=== PATIENT | male | born 1985 ===

== ENCOUNTER 2021-02-11 14:30 | Inpatient (IN) | payer MEDICAID, OTHER, SELFPAY ==
[2021-02-11] MEDS ORDERED: Albuterol Sulfate 2.5 mg/3 ml Neb NEB PRN (14:54)
[2021-02-11] MEDS ORDERED: Albuterol 200 PUFF (6.7GM INHALER) INH PRN (15:22)
[2021-02-11 15:35] LABS: #Eosinphils 0.1 thou/uL (0.0-0.7); #Lymphocytes 0.5 thou/uL (1.20-3.40); #Monocytes 0.2 thou/uL (0.11-0.59); #Neutrophils 12.2 thou/uL (1.40-6.50); %Basophils 0.4 % (0.0-1.0); %Eosinophils 0.4 % (0.0-10.0); %Lymphocytes 3.6 % (21.0-51.0); %Monocytes 1.8 % (0.0-10.0); %Neutrophils 93.8 % (42.0-75.0); Hemoglobin 13.6 g/dL (14.0-18.0); Mean Corpuscular HGB CONC 33.1 g/dL (32.0-36.0); Mean Corpuscular Hemoglobin 31.1 pg (27.0-31.0); Mean Corpuscular Volume 93.8 fL (78.0-98.0); Mean Platelet Volume 6.2 fL (7.4-10.4); Platelet Count 413 thou/uL (130-400); RBC Distribution Width 11.4 % (11.5-14.5); Red Blood Cell (RBC) Count 4.37 mill/uL (4.70-6.10)
[2021-02-11 15:49] LABS: ALT (SGPT) 29 U/L (8-55); AST (SGOT) 16 U/L (5-34); Alkaline Phosphatase 48 U/L (40-110); Anion Gap 13 mmol/L (10-20); BUN (Urea Nitrogen) 23 mg/dL (8.9-20.6); Bilirubin, Total 0.5 mg/dL (0.2-1.2); Calc. Creatinine Clearance 136 mL/min (70-130); Carbon Dioxide 23 mmol/L (22-29); Chloride 104 mmol/L (98-107); Globulin 3.7 g/dL (2.4-3.5); Glucose 208 mg/dL (70-105); Potassium 4.5 mmol/L (3.5-5.1); Protein, Total 6.7 g/dL (6.0-8.3); Sodium 135 mmol/L (136-145)
[2021-02-11] MEDS: Lorazepam 2 MG/ML VIAL SLOW IVP PRN (17:44)
[2021-02-11] MEDS: Famotidine 20 MG TAB PO SCH (19:19)
[2021-02-11] MEDS: Dexamethasone 4 mg/ml Vial SLOW IVP SCH (19:24)
[2021-02-11] MEDS: Enoxaparin Sodium 40 MG/0.4 ML SYRINGE SC SCH (19:24)
[2021-02-12 04:08] LABS: Band 1 % (5-11); Hemoglobin 14.1 g/dL (14.0-18.0); Lymphocytes 10 % (21-51); MDiff Complete? YES; Mean Corpuscular Hemoglobin 32.7 pg (27.0-31.0); Mean Corpuscular Volume 93.3 fL (78.0-98.0); Mean Platelet Volume 6.1 fL (7.4-10.4); Monocytes 16 % (0-10); Neutrophil 73 % (42-75); Platelet Count 376 thou/uL (130-400); Platelet Morphology Comment Appears Adequate; RBC Distribution Width 11.5 % (11.5-14.5); RBC Morphology Normal; White Blood Cell (WBC) Count 15.8 thou/uL (4.8-10.8)
[2021-02-12 04:12] LABS: Anion Gap 11 mmol/L (10-20); BUN (Urea Nitrogen) 21 mg/dL (8.9-20.6); CRP (Inflammatory) 5.37 mg/dL (= or < 0.5); Calc. Creatinine Clearance 142 mL/min (70-130); Calcium 9.1 mg/dL (7.8-10.44); Carbon Dioxide 25 mmol/L (22-29); Chloride 102 mmol/L (98-107); Glucose 133 mg/dL (70-105); Potassium 4.2 mmol/L (3.5-5.1); Sodium 134 mmol/L (136-145)
[2021-02-12] MEDS: Lorazepam 2 MG/ML VIAL SLOW IVP PRN ×2 (05:42→08:47)
[2021-02-12] MEDS ORDERED: Vecuronium 10 MG VIAL ONE (08:12)
[2021-02-12] MEDS ORDERED: Propofol BOLUS 1,000 MG/100 ML VIAL IV PRN (08:30)
[2021-02-12] MEDS ORDERED: Morphine 2 MG/ML VIAL SLOW IVP PRN (08:30)
[2021-02-12] MEDS ORDERED: Fentanyl BOLUS 250 ML IVPB PRN (08:30)
[2021-02-12] MEDS ORDERED: Fentanyl CADD 100 ML ONE ×2 (08:36→22:38)
[2021-02-12] MEDS: Fentanyl CADD 100 ML IV SCH ×2 (08:40→22:41)
[2021-02-12] MEDS: Propofol 1,000 MG/100 ML VIAL IV PRN ×3 (08:46→22:19)
[2021-02-12] MEDS: Dexamethasone 4 mg/ml Vial SLOW IVP SCH ×2 (09:25→22:18)
[2021-02-12] MEDS: Famotidine 20 MG TAB PO SCH ×2 (09:26→22:19)
[2021-02-12] MEDS: Enoxaparin Sodium 40 MG/0.4 ML SYRINGE SC SCH ×2 (09:26→22:19)
[2021-02-12] MEDS: Aspirin Chewable 81 MG TAB PO SCH (09:42)
[2021-02-12] MEDS: Vecuronium 10 MG VIAL IV PRN (10:42)
[2021-02-12 11:42] LABS: pH, Arterial 7.27 (7.35-7.45)
[2021-02-12 11:43] LABS: Base Excess (BEa) -1.1 mEq/L (-2.0 to +3.0); CO2 Tension 60.1 mmHg (35.0-45.0); O2 Tension (PaO2), arterial 73.3 mmHg (80.0-100.0)
[2021-02-12 11:44] LABS: Calcium, Ionized (arterial) 1.15 mmol/L (1.12-1.30); Carboxyhemoglobin (COHb) 0.8 gm% (0.0-3.0); Hemoglobin (Hb) 14.2 g/dL (14.0-18.0); Potassium - ABG Lab 3.59 mmol/L (3.70-5.30); Puncture Site RRA
[2021-02-12 11:45] LABS: ALV-art Gradient 564.575 mmHg (0-20)
[2021-02-12] MEDS: Senokot 8.6 MG TAB PER TUBE SCH (22:22)
[2021-02-13] MEDS: Propofol 1,000 MG/100 ML VIAL IV PRN ×3 (01:00→20:19)
[2021-02-13 05:11] LABS: Band 11 % (5-11); Eosinophils 1 % (0-10); Hemoglobin 13.2 g/dL (14.0-18.0); Lymphocytes 5 % (21-51); MDiff Complete? YES; Mean Corpuscular HGB CONC 32.5 g/dL (32.0-36.0); Mean Corpuscular Hemoglobin 30.7 pg (27.0-31.0); Mean Corpuscular Volume 94.5 fL (78.0-98.0); Mean Platelet Volume 6.2 fL (7.4-10.4); Monocytes 6 % (0-10); Neutrophil 77 % (42-75); Platelet Count 342 thou/uL (130-400); Platelet Morphology Comment Appears Adequate; RBC Distribution Width 11.5 % (11.5-14.5); White Blood Cell (WBC) Count 16.6 thou/uL (4.8-10.8)
[2021-02-13 05:28] LABS: Anion Gap 11 mmol/L (10-20); BUN (Urea Nitrogen) 25 mg/dL (8.9-20.6); Calc. Creatinine Clearance 156 mL/min (70-130); Calcium 9.2 mg/dL (7.8-10.44); Carbon Dioxide 30 mmol/L (22-29); Chloride 101 mmol/L (98-107); Glucose 141 mg/dL (70-105); Potassium 4.3 mmol/L (3.5-5.1); Sodium 138 mmol/L (136-145)
[2021-02-13] MEDS: Dexamethasone 4 mg/ml Vial SLOW IVP SCH ×2 (09:05→20:19)
[2021-02-13] MEDS: Aspirin Chewable 81 MG TAB PO SCH (09:05)
[2021-02-13] MEDS: Senokot 8.6 MG TAB PER TUBE SCH ×2 (09:05→20:40)
[2021-02-13] MEDS: Enoxaparin Sodium 40 MG/0.4 ML SYRINGE SC SCH ×2 (09:05→20:19)
[2021-02-13] MEDS: Polyethylene Glycol 3350 17 GM Packet PO SCH (09:06)
[2021-02-13] MEDS: Famotidine 20 MG TAB PO SCH ×2 (09:06→20:19)
[2021-02-13] MEDS: Vecuronium 10 MG VIAL IV PRN (11:45)
[2021-02-13] MEDS ORDERED: Fentanyl CADD 100 ML ONE (13:03)
[2021-02-13] MEDS: Fentanyl CADD 100 ML IV SCH (13:15)
[2021-02-13] MEDS ORDERED: Sodium Chloride 0.9% (PF) 10 ML VIAL FS PRN (19:15)
[2021-02-13] MEDS: Lorazepam 2 MG/ML VIAL SLOW IVP PRN (21:21)
[2021-02-14] MEDS: Acetaminophen 325 MG TAB PO PRN (04:40)
[2021-02-14] MEDS: Propofol 1,000 MG/100 ML VIAL IV PRN ×2 (05:30→19:23)
[2021-02-14 06:27] LABS: Band 3 % (5-11); Eosinophils 1 % (0-10); Hemoglobin 12.8 g/dL (14.0-18.0); Lymphocytes 8 % (21-51); MDiff Complete? YES; Mean Corpuscular HGB CONC 33.5 g/dL (32.0-36.0); Mean Corpuscular Hemoglobin 31.6 pg (27.0-31.0); Mean Corpuscular Volume 94.4 fL (78.0-98.0); Mean Platelet Volume 6.3 fL (7.4-10.4); Monocytes 5 % (0-10); Neutrophil 82 % (42-75); Platelet Count 319 thou/uL (130-400); Platelet Morphology Comment Appears Adequate; RBC Distribution Width 11.4 % (11.5-14.5); Reactive Lymphocytes 1 % (0-10); Red Blood Cell (RBC) Count 4.05 mill/uL (4.70-6.10); White Blood Cell (WBC) Count 16.3 thou/uL (4.8-10.8)
[2021-02-14 06:37] LABS: Anion Gap 10 mmol/L (10-20); BUN (Urea Nitrogen) 26 mg/dL (8.9-20.6); Calc. Creatinine Clearance 149 mL/min (70-130); Carbon Dioxide 30 mmol/L (22-29); Chloride 99 mmol/L (98-107); Glucose 120 mg/dL (70-105); Potassium 4.2 mmol/L (3.5-5.1); Sodium 135 mmol/L (136-145)
[2021-02-14 07:27] LABS: Actual Bicarbonate (HCO3a) 30.9 mEq/L (22-28); Base Excess (BEa) 5.9 mEq/L (-2.0 to +3.0); CO2 Tension 46.3 mmHg (35.0-45.0); Calcium, Ionized (arterial) 1.22 mmol/L (1.12-1.30); Carboxyhemoglobin (COHb) 0.8 gm% (0.0-3.0); Hemoglobin (Hb) 13.5 g/dL (14.0-18.0); O2 Tension (PaO2), arterial 63.9 mmHg (80.0-100.0); Potassium - ABG Lab 4.08 mmol/L (3.70-5.30); pH, Arterial 7.44 (7.35-7.45)
[2021-02-14 08:07] LABS: ALV-art Gradient 306.025 mmHg (0-20); Puncture Site RRA
[2021-02-14] MEDS ORDERED: Fentanyl CADD 100 ML ONE (08:39)
[2021-02-14] MEDS: Senokot 8.6 MG TAB PER TUBE SCH ×2 (08:43→21:51)
[2021-02-14] MEDS: Aspirin Chewable 81 MG TAB PO SCH (08:43)
[2021-02-14] MEDS: Dexamethasone 4 mg/ml Vial SLOW IVP SCH ×2 (08:43→21:48)
[2021-02-14] MEDS: Polyethylene Glycol 3350 17 GM Packet PO SCH (08:43)
[2021-02-14] MEDS: Pantoprazole 40 MG VIAL IVP SCH (08:44)
[2021-02-14] MEDS: Enoxaparin Sodium 40 MG/0.4 ML SYRINGE SC SCH ×2 (08:44→21:48)
[2021-02-14] MEDS: Fentanyl CADD 100 ML IV SCH (08:44)
[2021-02-14] MEDS: Lorazepam 2 MG/ML VIAL SLOW IVP PRN (12:22)
[2021-02-14] MEDS: Vecuronium 10 MG VIAL IV PRN ×2 (12:22→16:00)
[2021-02-15] MEDS: Acetaminophen 325 MG TAB PO PRN (00:56)
[2021-02-15] MEDS: Propofol 1,000 MG/100 ML VIAL IV PRN ×3 (00:56→17:59)
[2021-02-15] MEDS ORDERED: Fentanyl CADD 100 ML ONE ×2 (04:02→22:21)
[2021-02-15] MEDS: Fentanyl CADD 100 ML IV SCH ×2 (04:05→22:24)
[2021-02-15 05:04] LABS: Anion Gap 11 mmol/L (10-20); BUN (Urea Nitrogen) 20 mg/dL (8.9-20.6); Calc. Creatinine Clearance 160 mL/min (70-130); Calcium 8.4 mg/dL (7.8-10.44); Carbon Dioxide 28 mmol/L (22-29); Chloride 101 mmol/L (98-107); Glucose 160 mg/dL (70-105); Potassium 4.1 mmol/L (3.5-5.1); Sodium 136 mmol/L (136-145)
[2021-02-15 05:44] LABS: Band 3 % (5-11); Hemoglobin 12.1 g/dL (14.0-18.0); Lymphocytes 9 % (21-51); MDiff Complete? YES; Mean Corpuscular HGB CONC 34.5 g/dL (32.0-36.0); Mean Corpuscular Hemoglobin 32.2 pg (27.0-31.0); Mean Corpuscular Volume 93.5 fL (78.0-98.0); Mean Platelet Volume 6.5 fL (7.4-10.4); Monocytes 5 % (0-10); Myelocyte 1 % (0-0); Neutrophil 82 % (42-75); Platelet Count 282 thou/uL (130-400); Platelet Morphology Comment Appears Adequate; RBC Distribution Width 11.5 % (11.5-14.5); RBC Morphology Normal; Red Blood Cell (RBC) Count 3.74 mill/uL (4.70-6.10); White Blood Cell (WBC) Count 13.5 thou/uL (4.8-10.8)
[2021-02-15 07:13] LABS: Actual Bicarbonate (HCO3a) 26.9 mEq/L (22-28); CO2 Tension 34.6 mmHg (35.0-45.0); Calcium, Ionized (arterial) 1.18 mmol/L (1.12-1.30); Hemoglobin (Hb) 12.2 g/dL (14.0-18.0); O2 Tension (PaO2), arterial 90.8 mmHg (80.0-100.0); Potassium - ABG Lab 3.98 mmol/L (3.70-5.30); pH, Arterial 7.51 (7.35-7.45)
[2021-02-15 07:15] LABS: Puncture Site RRA
[2021-02-15] MEDS: Dexamethasone 4 mg/ml Vial SLOW IVP SCH ×2 (08:55→22:02)
[2021-02-15] MEDS: Pantoprazole 40 MG VIAL IVP SCH (08:55)
[2021-02-15] MEDS: Aspirin Chewable 81 MG TAB PO SCH (08:55)
[2021-02-15] MEDS: Enoxaparin Sodium 40 MG/0.4 ML SYRINGE SC SCH ×2 (08:55→22:01)
[2021-02-15] MEDS: Polyethylene Glycol 3350 17 GM Packet PO SCH (08:56)
[2021-02-15] MEDS: Senokot 8.6 MG TAB PER TUBE SCH ×2 (08:59→22:04)
[2021-02-15] MEDS: Lorazepam 2 MG/ML VIAL SLOW IVP PRN (22:05)
[2021-02-16] MEDS: Propofol 1,000 MG/100 ML VIAL IV PRN ×5 (01:10→22:41)
[2021-02-16 04:35] LABS: Band 5 % (5-11); Hemoglobin 11.9 g/dL (14.0-18.0); Hypochromia SLIGHT = 6-15 cells (100X) (0-5/hpf); Lymphocytes 10 % (21-51); MDiff Complete? YES; Mean Corpuscular HGB CONC 34.1 g/dL (32.0-36.0); Mean Corpuscular Hemoglobin 32.1 pg (27.0-31.0); Mean Platelet Volume 6.4 fL (7.4-10.4); Monocytes 3 % (0-10); Neutrophil 82 % (42-75); Platelet Count 237 thou/uL (130-400); Platelet Morphology Comment Appears Adequate; RBC Distribution Width 11.5 % (11.5-14.5); Red Blood Cell (RBC) Count 3.72 mill/uL (4.70-6.10); White Blood Cell (WBC) Count 16.5 thou/uL (4.8-10.8)
[2021-02-16 04:46] LABS: Anion Gap 9 mmol/L (10-20); BUN (Urea Nitrogen) 17 mg/dL (8.9-20.6); Calc. Creatinine Clearance 159 mL/min (70-130); Calcium 8.7 mg/dL (7.8-10.44); Carbon Dioxide 32 mmol/L (22-29); Chloride 101 mmol/L (98-107); Glucose 149 mg/dL (70-105); Potassium 4.1 mmol/L (3.5-5.1); Sodium 138 mmol/L (136-145)
[2021-02-16 07:24] LABS: Actual Bicarbonate (HCO3a) 30.6 mEq/L (22-28); Base Excess (BEa) 6.6 mEq/L (-2.0 to +3.0); CO2 Tension 41.4 mmHg (35.0-45.0); Calcium, Ionized (arterial) 1.14 mmol/L (1.12-1.30); Carboxyhemoglobin (COHb) 0.5 gm% (0.0-3.0); Hemoglobin (Hb) 12.4 g/dL (14.0-18.0); O2 Tension (PaO2), arterial 63.6 mmHg (80.0-100.0); Potassium - ABG Lab 3.85 mmol/L (3.70-5.30); pH, Arterial 7.49 (7.35-7.45)
[2021-02-16 08:06] LABS: Puncture Site LRA
[2021-02-16] MEDS: Enoxaparin Sodium 40 MG/0.4 ML SYRINGE SC SCH ×2 (08:52→21:00)
[2021-02-16] MEDS: Aspirin Chewable 81 MG TAB PO SCH (08:52)
[2021-02-16] MEDS: Pantoprazole 40 MG VIAL IVP SCH (08:52)
[2021-02-16] MEDS: Dexamethasone 4 mg/ml Vial SLOW IVP SCH (08:52)
[2021-02-16] MEDS: Polyethylene Glycol 3350 17 GM Packet PO SCH (08:52)
[2021-02-16] MEDS: Senokot 8.6 MG TAB PER TUBE SCH ×2 (08:52→21:00)
[2021-02-16] MEDS ORDERED: Fentanyl CADD 0 ML ONE (14:47)
[2021-02-16] MEDS: Fentanyl CADD 100 ML IV SCH ×2 (14:52→18:32)
[2021-02-16] MEDS ORDERED: Fentanyl CADD 100 ML ONE (18:21)
[2021-02-16] MEDS: Lorazepam 2 MG/ML VIAL SLOW IVP PRN (19:20)
[2021-02-17] MEDS: Lorazepam 2 MG/ML VIAL SLOW IVP PRN ×2 (00:35→16:08)
[2021-02-17 05:15] LABS: ALT (SGPT) 45 U/L (8-55); AST (SGOT) 23 U/L (5-34); Albumin 2.8 g/dL (3.5-5.0); Alkaline Phosphatase 34 U/L (40-110); Anion Gap 13 mmol/L (10-20); BUN (Urea Nitrogen) 22 mg/dL (8.9-20.6); Bilirubin, Total 0.4 mg/dL (0.2-1.2); Calc. Creatinine Clearance 168 mL/min (70-130); Calcium 8.5 mg/dL (7.8-10.44); Carbon Dioxide 28 mmol/L (22-29); Chloride 101 mmol/L (98-107); Globulin 3.1 g/dL (2.4-3.5); Glucose 105 mg/dL (70-105); Potassium 3.6 mmol/L (3.5-5.1); Protein, Total 5.9 g/dL (6.0-8.3); Sodium 138 mmol/L (136-145)
[2021-02-17 05:20] LABS: Band 1 % (5-11); Eosinophils 3 % (0-10); Hemoglobin 11.7 g/dL (14.0-18.0); Lymphocytes 19 % (21-51); MDiff Complete? YES; Mean Corpuscular HGB CONC 33.9 g/dL (32.0-36.0); Mean Corpuscular Hemoglobin 32.1 pg (27.0-31.0); Mean Corpuscular Volume 94.9 fL (78.0-98.0); Mean Platelet Volume 6.7 fL (7.4-10.4); Monocytes 6 % (0-10); Neutrophil 71 % (42-75); Platelet Count 225 thou/uL (130-400); Platelet Morphology Comment Appears Adequate; RBC Distribution Width 11.7 % (11.5-14.5); Red Blood Cell (RBC) Count 3.63 mill/uL (4.70-6.10); White Blood Cell (WBC) Count 14.4 thou/uL (4.8-10.8)
[2021-02-17] MEDS ORDERED: Fentanyl CADD 100 ML ONE ×2 (06:16→20:35)
[2021-02-17] MEDS: Fentanyl CADD 100 ML IV SCH ×2 (06:35→20:38)
[2021-02-17 07:44] LABS: Base Excess (BEa) 2.4 mEq/L (-2.0 to +3.0); CO2 Tension 36.8 mmHg (35.0-45.0); Calcium, Ionized (arterial) 1.16 mmol/L (1.12-1.30); Carboxyhemoglobin (COHb) 0.5 gm% (0.0-3.0); Hemoglobin (Hb) 12.4 g/dL (14.0-18.0); pH, Arterial 7.47 (7.35-7.45)
[2021-02-17 07:49] LABS: O2 Tension (PaO2), arterial 56.5 mmHg (80.0-100.0); Puncture Site RRA
[2021-02-17] MEDS: Pantoprazole 40 MG VIAL IVP SCH (08:20)
[2021-02-17] MEDS: Aspirin Chewable 81 MG TAB PO SCH (08:21)
[2021-02-17] MEDS: Dexamethasone 4 mg/ml Vial SLOW IVP SCH (08:21)
[2021-02-17] MEDS: Enoxaparin Sodium 40 MG/0.4 ML SYRINGE SC SCH ×2 (08:21→21:52)
[2021-02-17] MEDS: Polyethylene Glycol 3350 17 GM Packet PO SCH (08:22)
[2021-02-17] MEDS ORDERED: Lactated Ringer's 500 ML IV SCH (10:15)
[2021-02-17] MEDS: Propofol 1,000 MG/100 ML VIAL IV PRN ×2 (10:26→22:19)
[2021-02-17] MEDS: Senokot 8.6 MG TAB PER TUBE SCH ×2 (10:26→21:53)
[2021-02-18] MEDS: Lorazepam 2 MG/ML VIAL SLOW IVP PRN (03:20)
[2021-02-18] MEDS: Norepinephrine 8 MG/0.9% NS 250 ML IVPB SCH ×2 (03:52→11:53)
[2021-02-18 04:47] LABS: Band 5 % (5-11); Hemoglobin 11.8 g/dL (14.0-18.0); Hypochromia SLIGHT = 6-15 cells (100X) (0-5/hpf); Lymphocytes 24 % (21-51); MDiff Complete? YES; Mean Corpuscular HGB CONC 31.4 g/dL (32.0-36.0); Mean Corpuscular Hemoglobin 30.2 pg (27.0-31.0); Mean Corpuscular Volume 96.1 fL (78.0-98.0); Mean Platelet Volume 6.7 fL (7.4-10.4); Monocytes 9 % (0-10); Neutrophil 62 % (42-75); Platelet Count 233 thou/uL (130-400); Platelet Morphology Comment Appears Adequate; Red Blood Cell (RBC) Count 3.91 mill/uL (4.70-6.10); White Blood Cell (WBC) Count 16.6 thou/uL (4.8-10.8)
[2021-02-18 04:59] LABS: ALT (SGPT) 47 U/L (8-55); AST (SGOT) 18 U/L (5-34); Alkaline Phosphatase 42 U/L (40-110); Anion Gap 12 mmol/L (10-20); BUN (Urea Nitrogen) 22 mg/dL (8.9-20.6); Bilirubin, Total 0.5 mg/dL (0.2-1.2); Calc. Creatinine Clearance 165 mL/min (70-130); Calcium 8.7 mg/dL (7.8-10.44); Carbon Dioxide 30 mmol/L (22-29); Chloride 100 mmol/L (98-107); Globulin 3.3 g/dL (2.4-3.5); Glucose 135 mg/dL (70-105); Potassium 3.7 mmol/L (3.5-5.1); Protein, Total 6.3 g/dL (6.0-8.3); Sodium 138 mmol/L (136-145)
[2021-02-18] MEDS: Propofol 1,000 MG/100 ML VIAL IV PRN ×3 (05:28→22:14)
[2021-02-18 07:47] LABS: Actual Bicarbonate (HCO3a) 29.5 mEq/L (22-28); Base Excess (BEa) 5.1 mEq/L (-2.0 to +3.0); CO2 Tension 42.7 mmHg (35.0-45.0); Calcium, Ionized (arterial) 1.19 mmol/L (1.12-1.30); Carboxyhemoglobin (COHb) 0.9 gm% (0.0-3.0); Hemoglobin (Hb) 12.4 g/dL (14.0-18.0); Potassium - ABG Lab 3.67 mmol/L (3.70-5.30); pH, Arterial 7.46 (7.35-7.45)
[2021-02-18 07:51] LABS: ALV-art Gradient 253.825 mmHg (0-20); O2 Tension (PaO2), arterial 49.3 mmHg (80.0-100.0); Puncture Site LRA
[2021-02-18] MEDS: Polyethylene Glycol 3350 17 GM Packet PO SCH (09:33)
[2021-02-18] MEDS: Pantoprazole 40 MG VIAL IVP SCH (09:33)
[2021-02-18] MEDS: Dexamethasone 4 mg/ml Vial SLOW IVP SCH (09:33)
[2021-02-18] MEDS: Aspirin Chewable 81 MG TAB PO SCH (09:33)
[2021-02-18] MEDS: Enoxaparin Sodium 40 MG/0.4 ML SYRINGE SC SCH ×2 (09:33→21:34)
[2021-02-18] MEDS: Senokot 8.6 MG TAB PER TUBE SCH ×2 (09:44→21:34)
[2021-02-18] MEDS ORDERED: Fentanyl CADD 100 ML ONE (10:15)
[2021-02-18] MEDS: Fentanyl CADD 100 ML IV SCH ×2 (11:00→21:39)
[2021-02-19 04:44] LABS: Band 9 % (5-11); Eosinophils 1 % (0-10); Hemoglobin 11.2 g/dL (14.0-18.0); Lymphocytes 8 % (21-51); MDiff Complete? YES; Mean Corpuscular HGB CONC 32.6 g/dL (32.0-36.0); Mean Corpuscular Hemoglobin 31.2 pg (27.0-31.0); Mean Corpuscular Volume 95.7 fL (78.0-98.0); Mean Platelet Volume 6.8 fL (7.4-10.4); Monocytes 4 % (0-10); Neutrophil 78 % (42-75); Platelet Count 269 thou/uL (130-400); Red Blood Cell (RBC) Count 3.58 mill/uL (4.70-6.10); White Blood Cell (WBC) Count 16.3 thou/uL (4.8-10.8)
[2021-02-19 04:46] LABS: ALT (SGPT) 45 U/L (8-55); AST (SGOT) 18 U/L (5-34); Albumin 2.7 g/dL (3.5-5.0); Alkaline Phosphatase 37 U/L (40-110); Anion Gap 11 mmol/L (10-20); BUN (Urea Nitrogen) 22 mg/dL (8.9-20.6); Bilirubin, Total 0.4 mg/dL (0.2-1.2); Calc. Creatinine Clearance 189 mL/min (70-130); Calcium 8.4 mg/dL (7.8-10.44); Carbon Dioxide 29 mmol/L (22-29); Chloride 104 mmol/L (98-107); Globulin 3.4 g/dL (2.4-3.5); Glucose 119 mg/dL (70-105); Potassium 3.8 mmol/L (3.5-5.1); Protein, Total 6.1 g/dL (6.0-8.3); Sodium 140 mmol/L (136-145)
[2021-02-19] MEDS: Propofol 1,000 MG/100 ML VIAL IV PRN ×4 (06:17→16:06)
[2021-02-19 07:12] LABS: Actual Bicarbonate (HCO3a) 31.4 mEq/L (22-28); Base Excess (BEa) 6.4 mEq/L (-2.0 to +3.0); CO2 Tension 46.2 mmHg (35.0-45.0); Calcium, Ionized (arterial) 1.18 mmol/L (1.12-1.30); Carboxyhemoglobin (COHb) 1.2 gm% (0.0-3.0); O2 Tension (PaO2), arterial 103.1 mmHg (80.0-100.0); Potassium - ABG Lab 3.69 mmol/L (3.70-5.30); pH, Arterial 7.45 (7.35-7.45)
[2021-02-19 07:14] LABS: Puncture Site LRA
[2021-02-19] MEDS ORDERED: Fentanyl CADD 100 ML ONE (07:48)
[2021-02-19] MEDS: Fentanyl CADD 100 ML IV SCH (07:54)
[2021-02-19] MEDS: Polyethylene Glycol 3350 17 GM Packet PO SCH (09:02)
[2021-02-19] MEDS: Dexamethasone 4 mg/ml Vial SLOW IVP SCH (09:02)
[2021-02-19] MEDS: Enoxaparin Sodium 40 MG/0.4 ML SYRINGE SC SCH ×2 (09:03→21:39)
[2021-02-19] MEDS: Aspirin Chewable 81 MG TAB PO SCH (09:03)
[2021-02-19] MEDS: Pantoprazole 40 MG GRANULES PACKET PER TUBE SCH (09:03)
[2021-02-19] MEDS: Senokot 8.6 MG TAB PER TUBE SCH ×2 (09:03→21:44)
[2021-02-19] MEDS: Vecuronium 10 MG VIAL IV PRN (23:10)
[2021-02-19] MEDS: Propofol 500 MG/50 ML VIAL IV PRN (23:49)
[2021-02-20] MEDS: Propofol 500 MG/50 ML VIAL IV PRN ×3 (04:36→11:37)
[2021-02-20 04:48] LABS: ALT (SGPT) 39 U/L (8-55); AST (SGOT) 14 U/L (5-34); Albumin 2.7 g/dL (3.5-5.0); Alkaline Phosphatase 38 U/L (40-110); Anion Gap 8 mmol/L (10-20); BUN (Urea Nitrogen) 16 mg/dL (8.9-20.6); Bilirubin, Total 0.3 mg/dL (0.2-1.2); Calc. Creatinine Clearance 182 mL/min (70-130); Calcium 8.5 mg/dL (7.8-10.44); Carbon Dioxide 34 mmol/L (22-29); Chloride 102 mmol/L (98-107); Globulin 3.2 g/dL (2.4-3.5); Glucose 102 mg/dL (70-105); Potassium 3.6 mmol/L (3.5-5.1); Protein, Total 5.9 g/dL (6.0-8.3); Sodium 140 mmol/L (136-145)
[2021-02-20 05:03] LABS: Hemoglobin 10.8 g/dL (14.0-18.0); Mean Corpuscular HGB CONC 32.6 g/dL (32.0-36.0); Mean Corpuscular Hemoglobin 31.4 pg (27.0-31.0); Mean Corpuscular Volume 96.3 fL (78.0-98.0); Mean Platelet Volume 6.5 fL (7.4-10.4); Platelet Count 272 thou/uL (130-400); RBC Distribution Width 11.8 % (11.5-14.5); Red Blood Cell (RBC) Count 3.45 mill/uL (4.70-6.10); White Blood Cell (WBC) Count 16.1 thou/uL (4.8-10.8)
[2021-02-20] MEDS: Vecuronium 10 MG VIAL IV PRN ×3 (06:00→18:08)
[2021-02-20 06:18] LABS: Band 4 % (5-11); Eosinophils 1 % (0-10); Lymphocytes 21 % (21-51); MDiff Complete? YES; Monocytes 10 % (0-10); Neutrophil 63 % (42-75); Platelet Morphology Comment Appears Adequate; RBC Morphology Normal; Reactive Lymphocytes 1 % (0-10)
[2021-02-20 07:40] LABS: Actual Bicarbonate (HCO3a) 33.8 mEq/L (22-28); Base Excess (BEa) 7.7 mEq/L (-2.0 to +3.0); CO2 Tension 54.1 mmHg (35.0-45.0); Calcium, Ionized (arterial) 1.16 mmol/L (1.12-1.30); Carboxyhemoglobin (COHb) 1.3 gm% (0.0-3.0); Hemoglobin (Hb) 11.9 g/dL (14.0-18.0); Potassium - ABG Lab 3.14 mmol/L (3.70-5.30); pH, Arterial 7.41 (7.35-7.45)
[2021-02-20] MEDS: Senokot 8.6 MG TAB PER TUBE SCH ×2 (07:54→20:12)
[2021-02-20] MEDS: Aspirin Chewable 81 MG TAB PO SCH (07:54)
[2021-02-20] MEDS: Pantoprazole 40 MG GRANULES PACKET PER TUBE SCH (07:54)
[2021-02-20] MEDS: Polyethylene Glycol 3350 17 GM Packet PO SCH (07:54)
[2021-02-20] MEDS: Dexamethasone 4 mg/ml Vial SLOW IVP SCH (07:54)
[2021-02-20] MEDS: Enoxaparin Sodium 40 MG/0.4 ML SYRINGE SC SCH ×2 (07:55→20:12)
[2021-02-20 08:13] LABS: ALV-art Gradient 233.775 mmHg (0-20); O2 Tension (PaO2), arterial 55.1 mmHg (80.0-100.0); Puncture Site LRA
[2021-02-20] MEDS ORDERED: Fentanyl CADD 100 ML ONE (09:02)
[2021-02-20] MEDS: Fentanyl CADD 100 ML IV SCH ×3 (09:07→19:45)
[2021-02-20] MEDS: Lorazepam 2 MG/ML VIAL SLOW IVP PRN ×2 (12:40→17:50)
[2021-02-20] MEDS: Propofol 1,000 MG/100 ML VIAL IV PRN ×2 (14:36→23:37)
[2021-02-20] MEDS ORDERED: Insulin Regular 300 UNITS/3 ML VIAL ONE (19:30)
[2021-02-21] MEDS: Vecuronium 10 MG VIAL IV PRN ×2 (00:09→21:55)
[2021-02-21] MEDS: Acetaminophen 325 MG TAB PO PRN (00:16)
[2021-02-21 04:35] LABS: Albumin 2.9 g/dL (3.5-5.0); Anion Gap 11 mmol/L (10-20); BUN (Urea Nitrogen) 18 mg/dL (8.9-20.6); Bilirubin, Total 0.4 mg/dL (0.2-1.2); Calc. Creatinine Clearance 162 mL/min (70-130); Calcium 8.4 mg/dL (7.8-10.44); Carbon Dioxide 34 mmol/L (22-29); Chloride 100 mmol/L (98-107); Glucose 106 mg/dL (70-105); Phosphorus 3.5 mg/dL (2.3-4.7); Potassium 3.7 mmol/L (3.5-5.1); Protein, Total 5.6 g/dL (6.0-8.3); Sodium 141 mmol/L (136-145)
[2021-02-21 04:36] LABS: ALT (SGPT) 36 U/L (8-55); AST (SGOT) 13 U/L (5-34); Alkaline Phosphatase 39 U/L (40-110); Globulin 2.7 g/dL (2.4-3.5)
[2021-02-21 05:08] LABS: Hemoglobin 11.5 g/dL (14.0-18.0); Mean Corpuscular HGB CONC 33.9 g/dL (32.0-36.0); Mean Corpuscular Hemoglobin 32.4 pg (27.0-31.0); Mean Corpuscular Volume 95.6 fL (78.0-98.0); Mean Platelet Volume 6.3 fL (7.4-10.4); Platelet Count 277 thou/uL (130-400); RBC Distribution Width 11.9 % (11.5-14.5); Red Blood Cell (RBC) Count 3.54 mill/uL (4.70-6.10); White Blood Cell (WBC) Count 17.2 thou/uL (4.8-10.8)
[2021-02-21 05:09] LABS: Band 5 % (5-11); Eosinophils 1 % (0-10); Lymphocytes 25 % (21-51); MDiff Complete? YES; Monocytes 9 % (0-10); Myelocyte 2 % (0-0); Neutrophil 58 % (42-75)
[2021-02-21] MEDS: Lorazepam 2 MG/ML VIAL SLOW IVP PRN ×4 (05:27→20:35)
[2021-02-21] MEDS ORDERED: Fentanyl CADD 100 ML ONE (07:19)
[2021-02-21 07:21] LABS: CO2 Tension 48.9 mmHg (35.0-45.0); Calcium, Ionized (arterial) 1.14 mmol/L (1.12-1.30); Carboxyhemoglobin (COHb) 0.8 gm% (0.0-3.0); Hemoglobin (Hb) 12.2 g/dL (14.0-18.0); O2 Tension (PaO2), arterial 64.6 mmHg (80.0-100.0); Potassium - ABG Lab 3.59 mmol/L (3.70-5.30); pH, Arterial 7.47 (7.35-7.45)
[2021-02-21] MEDS: Fentanyl CADD 100 ML IV SCH ×2 (07:34→19:37)
[2021-02-21 08:03] LABS: Puncture Site LRA
[2021-02-21 08:04] LABS: ALV-art Gradient 302.075 mmHg (0-20)
[2021-02-21] MEDS: Pantoprazole 40 MG GRANULES PACKET PER TUBE SCH (08:41)
[2021-02-21] MEDS: Senokot 8.6 MG TAB PER TUBE SCH ×2 (08:41→20:35)
[2021-02-21] MEDS: Dexamethasone 4 mg/ml Vial SLOW IVP SCH (08:42)
[2021-02-21] MEDS: Polyethylene Glycol 3350 17 GM Packet PO SCH (08:42)
[2021-02-21] MEDS: Enoxaparin Sodium 40 MG/0.4 ML SYRINGE SC SCH ×2 (08:42→20:35)
[2021-02-21] MEDS: Aspirin Chewable 81 MG TAB PO SCH (08:42)
[2021-02-21] MEDS: Norepinephrine 8 MG/0.9% NS 250 ML IVPB SCH (09:36)
[2021-02-21] MEDS: Propofol 1,000 MG/100 ML VIAL IV PRN ×2 (12:38→23:18)
[2021-02-22] MEDS: Vecuronium 10 MG VIAL IV PRN (01:41)
[2021-02-22 04:42] LABS: ALT (SGPT) 40 U/L (8-55); AST (SGOT) 17 U/L (5-34); Albumin 3.1 g/dL (3.5-5.0); Alkaline Phosphatase 44 U/L (40-110); Anion Gap 12 mmol/L (10-20); BUN (Urea Nitrogen) 22 mg/dL (8.9-20.6); Bilirubin, Total 0.5 mg/dL (0.2-1.2); Calc. Creatinine Clearance 173 mL/min (70-130); Calcium 8.5 mg/dL (7.8-10.44); Carbon Dioxide 32 mmol/L (22-29); Chloride 99 mmol/L (98-107); Globulin 2.9 g/dL (2.4-3.5); Glucose 112 mg/dL (70-105); Phosphorus 3.4 mg/dL (2.3-4.7); Potassium 3.8 mmol/L (3.5-5.1); Sodium 139 mmol/L (136-145)
[2021-02-22 04:58] LABS: Mean Corpuscular Hemoglobin 31.5 pg (27.0-31.0); Mean Corpuscular Volume 95.5 fL (78.0-98.0); Mean Platelet Volume 6.3 fL (7.4-10.4); Platelet Count 311 thou/uL (130-400); Red Blood Cell (RBC) Count 3.79 mill/uL (4.70-6.10); White Blood Cell (WBC) Count 23.5 thou/uL (4.8-10.8)
[2021-02-22 05:47] LABS: Band 11 % (5-11); Eosinophils 1 % (0-10); Lymphocytes 14 % (21-51); MDiff Complete? YES; Metamyelocyte 1 % (0-0); Monocytes 8 % (0-10); Myelocyte 1 % (0-0); Neutrophil 64 % (42-75)
[2021-02-22] MEDS: Propofol 1,000 MG/100 ML VIAL IV PRN ×4 (06:02→21:21)
[2021-02-22] MEDS: Fentanyl CADD 100 ML IV SCH ×2 (06:11→17:48)
[2021-02-22] MEDS ORDERED: Dexamethasone 4 mg/ml Vial ONE (08:48)
[2021-02-22 08:53] LABS: Actual Bicarbonate (HCO3a) 31.2 mEq/L (22-28); CO2 Tension 46.5 mmHg (35.0-45.0); Calcium, Ionized (arterial) 1.15 mmol/L (1.12-1.30); Carboxyhemoglobin (COHb) 1.5 gm% (0.0-3.0); Hemoglobin (Hb) 17.7 g/dL (14.0-18.0); O2 Tension (PaO2), arterial 62.3 mmHg (80.0-100.0); Potassium - ABG Lab 3.47 mmol/L (3.70-5.30); pH, Arterial 7.45 (7.35-7.45)
[2021-02-22] MEDS: Norepinephrine 8 MG/0.9% NS 250 ML IVPB SCH (08:53)
[2021-02-22] MEDS: Aspirin Chewable 81 MG TAB PO SCH (08:54)
[2021-02-22] MEDS: Pantoprazole 40 MG GRANULES PACKET PER TUBE SCH (08:54)
[2021-02-22] MEDS: Enoxaparin Sodium 40 MG/0.4 ML SYRINGE SC SCH ×2 (08:54→20:05)
[2021-02-22] MEDS: Senokot 8.6 MG TAB PER TUBE SCH ×2 (08:55→20:05)
[2021-02-22] MEDS: Dexamethasone 4 mg/ml Vial SLOW IVP SCH (08:55)
[2021-02-22] MEDS: Polyethylene Glycol 3350 17 GM Packet PO SCH (08:56)
[2021-02-22 08:57] LABS: ALV-art Gradient 164.775 mmHg (0-20); Puncture Site RRA
[2021-02-22] MEDS ORDERED: Propofol 500 MG/50 ML VIAL IV PRN (21:10)
[2021-02-23] MEDS: Acetaminophen 325 MG TAB PO PRN (01:12)
[2021-02-23] MEDS: Lorazepam 2 MG/ML VIAL SLOW IVP PRN ×2 (03:13→08:44)
[2021-02-23] MEDS: Vecuronium 10 MG VIAL IV PRN (04:31)
[2021-02-23 04:37] LABS: Anion Gap 14 mmol/L (10-20); BUN (Urea Nitrogen) 18 mg/dL (8.9-20.6); Calc. Creatinine Clearance 154 mL/min (70-130); Calcium 8.6 mg/dL (7.8-10.44); Carbon Dioxide 30 mmol/L (22-29); Chloride 100 mmol/L (98-107); Glucose 121 mg/dL (70-105); Potassium 3.6 mmol/L (3.5-5.1); Sodium 140 mmol/L (136-145)
[2021-02-23 05:07] LABS: Band 24 % (5-11); Eosinophils 1 % (0-10); Hemoglobin 12.8 g/dL (14.0-18.0); Lymphocytes 17 % (21-51); MDiff Complete? YES; Mean Corpuscular HGB CONC 32.6 g/dL (32.0-36.0); Mean Corpuscular Hemoglobin 31.3 pg (27.0-31.0); Mean Corpuscular Volume 96.1 fL (78.0-98.0); Mean Platelet Volume 6.2 fL (7.4-10.4); Monocytes 6 % (0-10); Neutrophil 52 % (42-75); Platelet Count 277 thou/uL (130-400); Platelet Morphology Comment Appears Adequate; RBC Distribution Width 12.1 % (11.5-14.5); RBC Morphology Normal; Red Blood Cell (RBC) Count 4.08 mill/uL (4.70-6.10); White Blood Cell (WBC) Count 29.6 thou/uL (4.8-10.8)
[2021-02-23] MEDS: Fentanyl CADD 100 ML IV SCH (05:16)
[2021-02-23 07:52] LABS: Base Excess (BEa) 6.1 mEq/L (-2.0 to +3.0); CO2 Tension 46.2 mmHg (35.0-45.0); Calcium, Ionized (arterial) 1.14 mmol/L (1.12-1.30); Carboxyhemoglobin (COHb) 0.8 gm% (0.0-3.0); Hemoglobin (Hb) 13.1 g/dL (14.0-18.0); O2 Tension (PaO2), arterial 150.3 mmHg (80.0-100.0); Potassium - ABG Lab 3.39 mmol/L (3.70-5.30); Puncture Site RRA; pH, Arterial 7.45 (7.35-7.45)
[2021-02-23] MEDS: Propofol 1,000 MG/100 ML VIAL IV PRN (08:43)
[2021-02-23] MEDS: Dexamethasone 4 mg/ml Vial SLOW IVP SCH (08:47)
[2021-02-23] MEDS: Enoxaparin Sodium 40 MG/0.4 ML SYRINGE SC SCH ×2 (08:49→20:47)
[2021-02-23] MEDS: Aspirin Chewable 81 MG TAB PO SCH (08:49)
[2021-02-23] MEDS: Pantoprazole 40 MG GRANULES PACKET PER TUBE SCH (08:49)
[2021-02-23] MEDS: Polyethylene Glycol 3350 17 GM Packet PO SCH (09:14)
[2021-02-23] MEDS: Senokot 8.6 MG TAB PER TUBE SCH ×2 (09:14→20:45)
[2021-02-23] MEDS ORDERED: Lactated Ringer's 500 ML IV SCH (16:00)
[2021-02-23] MEDS: Morphine 2 MG/ML VIAL SLOW IVP PRN ×2 (22:03→23:37)
[2021-02-24] MEDS: Morphine 2 MG/ML VIAL SLOW IVP PRN ×5 (01:37→23:55)
[2021-02-24 04:39] LABS: Anion Gap 15 mmol/L (10-20); BUN (Urea Nitrogen) 16 mg/dL (8.9-20.6); Calc. Creatinine Clearance 179 mL/min (70-130); Calcium 8.6 mg/dL (7.8-10.44); Carbon Dioxide 27 mmol/L (22-29); Chloride 100 mmol/L (98-107); Glucose 97 mg/dL (70-105); Potassium 3.7 mmol/L (3.5-5.1); Sodium 138 mmol/L (136-145)
[2021-02-24 05:47] LABS: Band 17 % (5-11); Eosinophils 2 % (0-10); Hemoglobin 11.9 g/dL (14.0-18.0); Lymphocytes 6 % (21-51); MDiff Complete? YES; Mean Corpuscular HGB CONC 32.9 g/dL (32.0-36.0); Mean Corpuscular Hemoglobin 31.1 pg (27.0-31.0); Mean Corpuscular Volume 94.5 fL (78.0-98.0); Metamyelocyte 1 % (0-0); Monocytes 3 % (0-10); Neutrophil 71 % (42-75); Platelet Count 245 thou/uL (130-400); RBC Distribution Width 11.7 % (11.5-14.5); Red Blood Cell (RBC) Count 3.81 mill/uL (4.70-6.10)
[2021-02-24] MEDS ORDERED: Fentanyl CADD 0 ML ONE (08:26)
[2021-02-24] MEDS: Aspirin Chewable 81 MG TAB PO SCH (09:06)
[2021-02-24] MEDS: Pantoprazole 40 MG GRANULES PACKET PER TUBE SCH (09:06)
[2021-02-24] MEDS: Senokot 8.6 MG TAB PER TUBE SCH ×2 (09:06→22:16)
[2021-02-24] MEDS: Polyethylene Glycol 3350 17 GM Packet PO SCH (09:06)
[2021-02-24] MEDS: Enoxaparin Sodium 40 MG/0.4 ML SYRINGE SC SCH ×2 (09:07→20:02)
[2021-02-24] MEDS: Lorazepam 2 MG/ML VIAL SLOW IVP PRN ×5 (09:07→22:07)
[2021-02-24] MEDS: Dexmedetomidine 1,000 MCG in Sodium Chloride 0.9% 250 ML 240 ML IVPB SCH (17:37)
[2021-02-25] MEDS: Lorazepam 2 MG/ML VIAL SLOW IVP PRN ×6 (00:05→19:15)
[2021-02-25] MEDS: Morphine 2 MG/ML VIAL SLOW IVP PRN ×4 (02:05→19:54)
[2021-02-25] MEDS: Dexmedetomidine 1,000 MCG in Sodium Chloride 0.9% 250 ML 240 ML IVPB SCH ×2 (05:04→20:31)
[2021-02-25 05:13] LABS: Hemoglobin 11.7 g/dL (14.0-18.0); Mean Corpuscular HGB CONC 33.4 g/dL (32.0-36.0); Mean Corpuscular Hemoglobin 31.5 pg (27.0-31.0); Mean Corpuscular Volume 94.4 fL (78.0-98.0); Mean Platelet Volume 7.2 fL (7.4-10.4); Platelet Count 233 thou/uL (130-400); RBC Distribution Width 11.9 % (11.5-14.5); Red Blood Cell (RBC) Count 3.69 mill/uL (4.70-6.10); White Blood Cell (WBC) Count 17.7 thou/uL (4.8-10.8)
[2021-02-25 05:26] LABS: Anion Gap 16 mmol/L (10-20); BUN (Urea Nitrogen) 16 mg/dL (8.9-20.6); Calc. Creatinine Clearance 158 mL/min (70-130); Calcium 8.5 mg/dL (7.8-10.44); Carbon Dioxide 24 mmol/L (22-29); Chloride 104 mmol/L (98-107); Glucose 92 mg/dL (70-105); Potassium 3.7 mmol/L (3.5-5.1); Sodium 140 mmol/L (136-145)
[2021-02-25 06:15] LABS: Band 11 % (5-11); Eosinophils 1 % (0-10); Lymphocytes 14 % (21-51); MDiff Complete? YES; Monocytes 6 % (0-10); Neutrophil 68 % (42-75); Platelet Morphology Comment Appears Adequate; RBC Morphology Normal
[2021-02-25] MEDS ORDERED: Propofol 1,000 MG/100 ML VIAL IV ONE (07:28)
[2021-02-25] MEDS ORDERED: Fentanyl CADD 100 ML ONE ×2 (07:31→20:28)
[2021-02-25] MEDS: Vecuronium 10 MG VIAL IV PRN ×3 (07:45→17:28)
[2021-02-25] MEDS ORDERED: Ventilator Sedation Protocol 1 EACH FS ONE (07:50)
[2021-02-25] MEDS ORDERED: Succinylcholine 200 MG/10 ml SYRINGE FS ONE (07:51)
[2021-02-25] MEDS ORDERED: Vecuronium 10 MG VIAL ONE (07:53)
[2021-02-25] MEDS ORDERED: DISCONTINUE PREVIOUS NARCOTIC PAIN MEDICATIONS AND BENZODIAZEPINES FS SCH (08:00)
[2021-02-25] MEDS ORDERED: Succinylcholine Chloride 200 MG/10 ML VIAL IVP SCH (08:00)
[2021-02-25] MEDS ORDERED: Fentanyl BOLUS 250 ML IVPB PRN (08:00)
[2021-02-25 08:53] LABS: Actual Bicarbonate (HCO3a) 26.1 mEq/L (22-28); Base Excess (BEa) -3.5 mEq/L (-2.0 to +3.0); Calcium, Ionized (arterial) 1.19 mmol/L (1.12-1.30); Carboxyhemoglobin (COHb) 0.5 gm% (0.0-3.0); Hemoglobin (Hb) 11.7 g/dL (14.0-18.0); O2 Tension (PaO2), arterial 79.3 mmHg (80.0-100.0); Potassium - ABG Lab 3.52 mmol/L (3.70-5.30)
[2021-02-25] MEDS: Lactated Ringer's 1,000 ML IV SCH ×2 (09:19→18:14)
[2021-02-25] MEDS ORDERED: Succinylcholine 200 MG/10 ml SYRINGE FS SCH (09:30)
[2021-02-25 09:40] LABS: CO2 Tension 71.6 mmHg (35.0-45.0); pH, Arterial 7.18 (7.35-7.45)
[2021-02-25 09:41] LABS: Puncture Site LRA
[2021-02-25] MEDS: Aspirin Chewable 81 MG TAB PO SCH (09:51)
[2021-02-25] MEDS: Senokot 8.6 MG TAB PER TUBE SCH ×2 (09:51→19:55)
[2021-02-25] MEDS: Pantoprazole 40 MG GRANULES PACKET PER TUBE SCH (09:51)
[2021-02-25] MEDS: Enoxaparin Sodium 40 MG/0.4 ML SYRINGE SC SCH ×2 (09:51→19:55)
[2021-02-25] MEDS: Polyethylene Glycol 3350 17 GM Packet PO SCH (09:51)
[2021-02-25 11:00] LABS: Actual Bicarbonate (HCO3a) 21.3 mEq/L (22-28); CO2 Tension 35.5 mmHg (35.0-45.0); Calcium, Ionized (arterial) 1.15 mmol/L (1.12-1.30); Carboxyhemoglobin (COHb) 1.1 gm% (0.0-3.0); Hemoglobin (Hb) 10.9 g/dL (14.0-18.0); Potassium - ABG Lab 3.53 mmol/L (3.70-5.30)
[2021-02-25 11:55] LABS: ALV-art Gradient 290.425 mmHg (0-20); Puncture Site LRA
[2021-02-25] MEDS ORDERED: ceFAZolin 2 GM/Dextrose 50 ML 2 GM in Premix Bag 1 BAG IVPB SCH (16:45)
[2021-02-25] MEDS: Propofol 1,000 MG/100 ML VIAL IV PRN (17:28)
[2021-02-25] MEDS ORDERED: Lactated Ringer's 500 ML IV SCH (17:45)
[2021-02-25] MEDS: Fentanyl CADD 100 ML IV SCH (20:29)
[2021-02-26] MEDS: Propofol 1,000 MG/100 ML VIAL IV PRN ×2 (03:59→17:19)
[2021-02-26] MEDS: Lactated Ringer's 1,000 ML IV SCH ×2 (03:59→17:21)
[2021-02-26 04:20] LABS: Anion Gap 13 mmol/L (10-20); BUN (Urea Nitrogen) 10 mg/dL (8.9-20.6); Calc. Creatinine Clearance 176 mL/min (70-130); Calcium 7.7 mg/dL (7.8-10.44); Carbon Dioxide 24 mmol/L (22-29); Chloride 103 mmol/L (98-107); Glucose 92 mg/dL (70-105); Potassium 3.2 mmol/L (3.5-5.1); Sodium 137 mmol/L (136-145)
[2021-02-26 05:37] LABS: Band 8 % (5-11); Eosinophils 1 % (0-10); Hemoglobin 9.7 g/dL (14.0-18.0); Lymphocytes 11 % (21-51); MDiff Complete? YES; Mean Corpuscular HGB CONC 32.7 g/dL (32.0-36.0); Mean Corpuscular Hemoglobin 30.8 pg (27.0-31.0); Mean Corpuscular Volume 94.3 fL (78.0-98.0); Mean Platelet Volume 9.1 fL (7.4-10.4); Monocytes 6 % (0-10); Neutrophil 74 % (42-75); Platelet Count 197 thou/uL (130-400); Platelet Morphology Comment Appears Adequate; RBC Distribution Width 11.8 % (11.5-14.5); RBC Morphology Normal; Red Blood Cell (RBC) Count 3.14 mill/uL (4.70-6.10); White Blood Cell (WBC) Count 14.3 thou/uL (4.8-10.8)
[2021-02-26] MEDS ORDERED: Fentanyl CADD 100 ML ONE (08:13)
[2021-02-26 08:28] LABS: Actual Bicarbonate (HCO3a) 24.7 mEq/L (22-28); Base Excess (BEa) 1.6 mEq/L (-2.0 to +3.0); CO2 Tension 32.9 mmHg (35.0-45.0); Calcium, Ionized (arterial) 1.09 mmol/L (1.12-1.30); Carboxyhemoglobin (COHb) 0.5 gm% (0.0-3.0); Hemoglobin (Hb) 9.3 g/dL (14.0-18.0); O2 Tension (PaO2), arterial 64.6 mmHg (80.0-100.0); Potassium - ABG Lab 3.04 mmol/L (3.70-5.30); pH, Arterial 7.49 (7.35-7.45)
[2021-02-26 08:30] LABS: Puncture Site RRA
[2021-02-26 08:31] LABS: ALV-art Gradient 250.775 mmHg (0-20)
[2021-02-26] MEDS: Lorazepam 2 MG/ML VIAL SLOW IVP PRN (08:35)
[2021-02-26] MEDS: Fentanyl CADD 100 ML IV SCH ×2 (08:36→19:47)
[2021-02-26] MEDS: Acetaminophen 325 MG TAB PO PRN (08:46)
[2021-02-26] MEDS: Pantoprazole 40 MG GRANULES PACKET PER TUBE SCH (08:46)
[2021-02-26] MEDS ORDERED: Fentanyl 100 MCG/2 ML VIAL ONE (09:58)
[2021-02-26] MEDS ORDERED: CEFEPIME HCL IN DEXTROSE 5 % 1 GM in Premix Bag 1 BAG IVPB SCH (10:00)
[2021-02-26] MEDS ORDERED: EPINEPHrine 1 MG/ML AMP ONE (10:01)
[2021-02-26] MEDS ORDERED: Bupivacaine PF 0.5% 30 ML VIAL ONE (10:01)
[2021-02-26] MEDS: Norepinephrine 8 MG/0.9% NS 250 ML IVPB SCH (10:27)
[2021-02-26] MEDS ORDERED: Sodium Chloride 0.9% 20 ML ONE (10:31)
[2021-02-26] MEDS ORDERED: Rocuronium Bromide 10 MG/ML (10ML VIAL) ONE (10:39)
[2021-02-26] MEDS ORDERED: PHENYLEPHRINE-NS 100 MCG/ML 10 ML SYRINGE ONE (10:39)
[2021-02-26 10:56] LABS: Magnesium 2.1 mg/dL (1.6-2.6)
[2021-02-26] MEDS: Polyethylene Glycol 3350 17 GM Packet PO SCH (10:58)
[2021-02-26] MEDS: Senokot 8.6 MG TAB PER TUBE SCH ×2 (10:58→20:58)
[2021-02-26] MEDS: Enoxaparin Sodium 40 MG/0.4 ML SYRINGE SC SCH ×2 (10:58→20:30)
[2021-02-26] MEDS: Aspirin Chewable 81 MG TAB PO SCH (10:58)
[2021-02-26] MEDS ORDERED: VANCOMYCIN 1.75 GM/350 ML BAG 1.75 GM in Premix Bag 1 BAG IVPB SCH (11:00)
[2021-02-26] MEDS: Cefepime 1 GM in Sodium Chloride 0.9% 100 ML IVPB SCH ×2 (19:24→21:09)
[2021-02-26] MEDS: Vecuronium 10 MG VIAL IV PRN (20:23)
[2021-02-27] MEDS: Lactated Ringer's 1,000 ML IV SCH ×3 (00:45→23:16)
[2021-02-27] MEDS: VANCOMYCIN 1.75 GM/350 ML BAG 1.75 GM in Premix Bag 1 BAG IVPB SCH ×2 (01:00→14:09)
[2021-02-27] MEDS ORDERED: Sterile Water 10 ML ONE (01:30)
[2021-02-27 08:55] LABS: Actual Bicarbonate (HCO3a) 23.8 mEq/L (22-28); Base Excess (BEa) -0.7 mEq/L (-2.0 to +3.0); Calcium, Ionized (arterial) 1.12 mmol/L (1.12-1.30); Carboxyhemoglobin (COHb) 0.6 gm% (0.0-3.0); Hemoglobin (Hb) 10.9 g/dL (14.0-18.0); Potassium - ABG Lab 3.28 mmol/L (3.70-5.30)
[2021-02-27 08:56] LABS: Puncture Site LRA
[2021-02-27] MEDS: Pantoprazole 40 MG GRANULES PACKET PER TUBE SCH (09:09)
[2021-02-27] MEDS: Aspirin Chewable 81 MG TAB PO SCH (09:09)
[2021-02-27] MEDS: Cefepime 1 GM in Sodium Chloride 0.9% 100 ML IVPB SCH ×2 (09:11→17:59)
[2021-02-27] MEDS: Polyethylene Glycol 3350 17 GM Packet PO SCH (09:12)
[2021-02-27] MEDS: Senokot 8.6 MG TAB PER TUBE SCH ×2 (09:12→23:17)
[2021-02-27] MEDS: Norepinephrine 8 MG/0.9% NS 250 ML IVPB SCH (09:15)
[2021-02-27] MEDS: Enoxaparin Sodium 40 MG/0.4 ML SYRINGE SC SCH ×2 (09:29→21:00)
[2021-02-27] MEDS: Propofol 1,000 MG/100 ML VIAL IV PRN ×2 (10:26→21:18)
[2021-02-27 11:15] LABS: ALT (SGPT) 18 U/L (8-55); AST (SGOT) 13 U/L (5-34); Albumin 2.6 g/dL (3.5-5.0); Alkaline Phosphatase 47 U/L (40-110); Anion Gap 14 mmol/L (10-20); BUN (Urea Nitrogen) 6 mg/dL (8.9-20.6); Bilirubin, Total 0.8 mg/dL (0.2-1.2); Calc. Creatinine Clearance 182 mL/min (70-130); Carbon Dioxide 26 mmol/L (22-29); Chloride 102 mmol/L (98-107); Glucose 80 mg/dL (70-105); Potassium 3.4 mmol/L (3.5-5.1); Protein, Total 5.6 g/dL (6.0-8.3); Sodium 139 mmol/L (136-145)
[2021-02-27] MEDS: Dexmedetomidine 1,000 MCG in Sodium Chloride 0.9% 250 ML 240 ML IVPB SCH (11:22)
[2021-02-27 12:55] LABS: Band 15 % (5-11); Hemoglobin 10.5 g/dL (14.0-18.0); MDiff Complete? YES; Manual Diff?? YES; Mean Corpuscular HGB CONC 32.5 g/dL (32.0-36.0); Mean Corpuscular Hemoglobin 30.7 pg (27.0-31.0); Mean Corpuscular Volume 94.4 fL (78.0-98.0); Mean Platelet Volume 7.8 fL (7.4-10.4); Neutrophil 69 % (42-75); Platelet Count 212 thou/uL (130-400); RBC Distribution Width 12.1 % (11.5-14.5); Red Blood Cell (RBC) Count 3.44 mill/uL (4.70-6.10); White Blood Cell (WBC) Count 17.5 thou/uL (4.8-10.8)
[2021-02-27 12:56] LABS: Hypochromia SLIGHT = 6-15 cells (100X) (0-5/hpf); Lymphocytes 14 % (21-51); Monocytes 2 % (0-10); Platelet Morphology Comment Appears Adequate
[2021-02-27] MEDS: Lorazepam 1 MG TAB PO PRN (14:57)
[2021-02-27] MEDS: Lorazepam 2 MG/ML VIAL SLOW IVP PRN ×3 (16:04→20:32)
[2021-02-27] MEDS: Fentanyl CADD 100 ML IV SCH (21:02)
[2021-02-27] MEDS: Propofol BOLUS 1,000 MG/100 ML VIAL IV PRN (21:17)
[2021-02-27] MEDS: Acetaminophen 325 MG TAB PO PRN (23:18)
[2021-02-28 00:26] LABS: Vancomycin, Trough 8.6 ug/mL
[2021-02-28] MEDS: Vancomycin 1.5 GRAM/300 ML BAG 1.5 GM in Premix Bag 1 BAG IVPB SCH ×3 (01:43→18:08)
[2021-02-28] MEDS: Cefepime 1 GM in Sodium Chloride 0.9% 100 ML IVPB SCH ×3 (02:00→18:07)
[2021-02-28] MEDS: VANCOMYCIN 1.75 GM/350 ML BAG 1.75 GM in Premix Bag 1 BAG IVPB SCH (03:30)
[2021-02-28 04:37] LABS: #Eosinphils 0.4 thou/uL (0.0-0.7); #Monocytes 0.9 thou/uL (0.11-0.59); #Neutrophils 7.3 thou/uL (1.40-6.50); %Basophils 0.2 % (0.0-1.0); %Eosinophils 3.6 % (0.0-10.0); %Lymphocytes 19.2 % (21.0-51.0); %Monocytes 8.5 % (0.0-10.0); %Neutrophils 68.5 % (42.0-75.0); Hemoglobin 10.1 g/dL (14.0-18.0); Mean Corpuscular HGB CONC 33.6 g/dL (32.0-36.0); Mean Corpuscular Hemoglobin 31.4 pg (27.0-31.0); Mean Corpuscular Volume 93.6 fL (78.0-98.0); Mean Platelet Volume 9.6 fL (7.4-10.4); Platelet Count 163 thou/uL (130-400); RBC Distribution Width 11.8 % (11.5-14.5); Red Blood Cell (RBC) Count 3.21 mill/uL (4.70-6.10); White Blood Cell (WBC) Count 10.6 thou/uL (4.8-10.8)
[2021-02-28 04:56] LABS: ALT (SGPT) 14 U/L (8-55); AST (SGOT) 12 U/L (5-34); Alkaline Phosphatase 39 U/L (40-110); Anion Gap 17 mmol/L (10-20); BUN (Urea Nitrogen) 4 mg/dL (8.9-20.6); Bilirubin, Total 0.5 mg/dL (0.2-1.2); Calc. Creatinine Clearance 220 mL/min (70-130); Calcium 7.4 mg/dL (7.8-10.44); Carbon Dioxide 21 mmol/L (22-29); Chloride 104 mmol/L (98-107); Globulin 2.5 g/dL (2.4-3.5); Glucose 75 mg/dL (70-105); Potassium 3.6 mmol/L (3.5-5.1); Protein, Total 4.5 g/dL (6.0-8.3); Sodium 138 mmol/L (136-145)
[2021-02-28 05:40] LABS: Band 4 % (5-11); Eosinophils 2 % (0-10); Hemoglobin 10.1 g/dL (14.0-18.0); Lymphocytes 20 % (21-51); MDiff Complete? YES; Mean Corpuscular HGB CONC 32.9 g/dL (32.0-36.0); Mean Corpuscular Hemoglobin 30.8 pg (27.0-31.0); Mean Corpuscular Volume 93.6 fL (78.0-98.0); Mean Platelet Volume 9.8 fL (7.4-10.4); Metamyelocyte 1 % (0-0); Monocytes 6 % (0-10); Myelocyte 2 % (0-0); Neutrophil 65 % (42-75); Platelet Count 154 thou/uL (130-400); Platelet Morphology Comment Appears Adequate; RBC Distribution Width 11.8 % (11.5-14.5); RBC Morphology Normal; Red Blood Cell (RBC) Count 3.27 mill/uL (4.70-6.10); White Blood Cell (WBC) Count 11.1 thou/uL (4.8-10.8)
[2021-02-28] MEDS: Propofol 1,000 MG/100 ML VIAL IV PRN ×2 (06:25→14:15)
[2021-02-28 08:09] LABS: Base Excess (BEa) 3.7 mEq/L (-2.0 to +3.0); CO2 Tension 40.9 mmHg (35.0-45.0); Calcium, Ionized (arterial) 1.11 mmol/L (1.12-1.30); Carboxyhemoglobin (COHb) 1.2 gm% (0.0-3.0); Hemoglobin (Hb) 10.8 g/dL (14.0-18.0); Potassium - ABG Lab 3.14 mmol/L (3.70-5.30); pH, Arterial 7.45 (7.35-7.45)
[2021-02-28 08:28] LABS: O2 Tension (PaO2), arterial 55.7 mmHg (80.0-100.0); Puncture Site LRA
[2021-02-28 08:29] LABS: ALV-art Gradient 178.375 mmHg (0-20)
[2021-02-28] MEDS: Enoxaparin Sodium 40 MG/0.4 ML SYRINGE SC SCH ×2 (09:43→20:13)
[2021-02-28] MEDS: Acetaminophen 325 MG TAB PO PRN ×2 (09:44→15:41)
[2021-02-28] MEDS: Pantoprazole 40 MG GRANULES PACKET PER TUBE SCH (09:44)
[2021-02-28] MEDS: Aspirin Chewable 81 MG TAB PO SCH (09:44)
[2021-02-28] MEDS: Lorazepam 2 MG/ML VIAL SLOW IVP PRN ×7 (09:47→23:06)
[2021-02-28] MEDS: Senokot 8.6 MG TAB PER TUBE SCH ×2 (09:52→20:13)
[2021-02-28] MEDS: Polyethylene Glycol 3350 17 GM Packet PO SCH (09:52)
[2021-02-28] MEDS ORDERED: Fentanyl CADD 100 ML ONE (09:53)
[2021-02-28] MEDS: Fentanyl CADD 100 ML IV SCH (10:03)
[2021-02-28] MEDS: Norepinephrine 8 MG/0.9% NS 250 ML IVPB SCH (11:12)
[2021-02-28] MEDS: Lactated Ringer's 1,000 ML IV SCH ×3 (11:13→18:04)
[2021-02-28] MEDS: Vecuronium 10 MG VIAL IV PRN (22:45)
[2021-03-01] MEDS: Fentanyl CADD 100 ML IV SCH ×2 (00:51→17:32)
[2021-03-01 01:28] LABS: Vancomycin, Trough 12.1 ug/mL
[2021-03-01] MEDS: Cefepime 1 GM in Sodium Chloride 0.9% 100 ML IVPB SCH ×2 (01:35→09:09)
[2021-03-01] MEDS: Vancomycin 1.5 GRAM/300 ML BAG 1.5 GM in Premix Bag 1 BAG IVPB SCH ×2 (01:40→09:09)
[2021-03-01] MEDS: Lactated Ringer's 1,000 ML IV SCH ×2 (04:22→16:52)
[2021-03-01 04:41] LABS: Band 8 % (5-11); Eosinophils 1 % (0-10); Hemoglobin 9.9 g/dL (14.0-18.0); Hypochromia SLIGHT = 6-15 cells (100X) (0-5/hpf); Lymphocytes 13 % (21-51); MDiff Complete? YES; Mean Corpuscular HGB CONC 32.1 g/dL (32.0-36.0); Mean Corpuscular Volume 93.6 fL (78.0-98.0); Mean Platelet Volume 7.2 fL (7.4-10.4); Monocytes 8 % (0-10); Neutrophil 70 % (42-75); Platelet Count 238 thou/uL (130-400); Platelet Morphology Comment Appears Adequate; RBC Distribution Width 11.8 % (11.5-14.5); White Blood Cell (WBC) Count 9.4 thou/uL (4.8-10.8)
[2021-03-01 05:23] LABS: Albumin 2.5 g/dL (3.5-5.0)
[2021-03-01 05:24] LABS: Chloride 102 mmol/L (98-107); Potassium 3.1 mmol/L (3.5-5.1); Sodium 140 mmol/L (136-145)
[2021-03-01 05:25] LABS: Glucose 125 mg/dL (70-105)
[2021-03-01 05:26] LABS: Globulin 3.3 g/dL (2.4-3.5)
[2021-03-01 05:27] LABS: Anion Gap 12 mmol/L (10-20); Bilirubin, Total 0.5 mg/dL (0.2-1.2); Carbon Dioxide 29 mmol/L (22-29)
[2021-03-01 05:28] LABS: Alkaline Phosphatase 48 U/L (40-110)
[2021-03-01 05:29] LABS: Calc. Creatinine Clearance 187 mL/min (70-130)
[2021-03-01 05:30] LABS: BUN (Urea Nitrogen) 4 mg/dL (8.9-20.6)
[2021-03-01 05:31] LABS: AST (SGOT) 22 U/L (5-34)
[2021-03-01 05:32] LABS: ALT (SGPT) 20 U/L (8-55)
[2021-03-01 06:12] LABS: Protein, Total 5.8 g/dL (6.0-8.3)
[2021-03-01 07:46] LABS: Actual Bicarbonate (HCO3a) 30.5 mEq/L (22-28); Base Excess (BEa) 6.4 mEq/L (-2.0 to +3.0); CO2 Tension 41.7 mmHg (35.0-45.0); Carboxyhemoglobin (COHb) 0.6 gm% (0.0-3.0); Hemoglobin (Hb) 10.4 g/dL (14.0-18.0); O2 Tension (PaO2), arterial 72.2 mmHg (80.0-100.0); Potassium - ABG Lab 2.88 mmol/L (3.70-5.30); pH, Arterial 7.48 (7.35-7.45)
[2021-03-01 07:47] LABS: ALV-art Gradient 232.175 mmHg (0-20); Puncture Site LRA
[2021-03-01] MEDS: Pantoprazole 40 MG GRANULES PACKET PER TUBE SCH (09:08)
[2021-03-01] MEDS: Enoxaparin Sodium 40 MG/0.4 ML SYRINGE SC SCH ×2 (09:08→22:14)
[2021-03-01] MEDS: Aspirin Chewable 81 MG TAB PO SCH (09:08)
[2021-03-01] MEDS: Polyethylene Glycol 3350 17 GM Packet PO SCH (09:11)
[2021-03-01] MEDS: Senokot 8.6 MG TAB PER TUBE SCH ×2 (09:12→22:14)
[2021-03-01] MEDS: Acetaminophen 325 MG TAB PO PRN ×2 (10:22→22:16)
[2021-03-01] MEDS: Propofol 1,000 MG/100 ML VIAL IV PRN ×2 (13:14→16:52)
[2021-03-01] MEDS: Norepinephrine 8 MG/0.9% NS 250 ML IVPB SCH (16:53)
[2021-03-01] MEDS ORDERED: Vancomycin HCl 1.5 GM in Sodium Chloride 0.9% 250 ML 300 ML IVPB SCH (18:00)
[2021-03-02] MEDS: Lactated Ringer's 1,000 ML IV SCH ×2 (01:14→20:54)
[2021-03-02] MEDS: Propofol 1,000 MG/100 ML VIAL IV PRN ×3 (01:50→18:32)
[2021-03-02 02:32] LABS: Vancomycin, Trough 30.5 ug/mL
[2021-03-02] MEDS: Lorazepam 2 MG/ML VIAL SLOW IVP PRN ×8 (03:21→23:45)
[2021-03-02] MEDS: Vancomycin HCl 1.5 GM in Sodium Chloride 0.9% 250 ML 300 ML IVPB SCH ×2 (03:40→20:55)
[2021-03-02 04:22] LABS: Anion Gap 12 mmol/L (10-20); BUN (Urea Nitrogen) 4 mg/dL (8.9-20.6); Calc. Creatinine Clearance 199 mL/min (70-130); Calcium 8.1 mg/dL (7.8-10.44); Carbon Dioxide 32 mmol/L (22-29); Chloride 100 mmol/L (98-107); Glucose 121 mg/dL (70-105); Potassium 3.1 mmol/L (3.5-5.1); Sodium 141 mmol/L (136-145)
[2021-03-02 04:38] LABS: Band 1 % (5-11); Eosinophils 2 % (0-10); Hemoglobin 9.9 g/dL (14.0-18.0); Lymphocytes 17 % (21-51); MDiff Complete? YES; Mean Corpuscular HGB CONC 32.7 g/dL (32.0-36.0); Mean Corpuscular Hemoglobin 30.4 pg (27.0-31.0); Mean Corpuscular Volume 92.9 fL (78.0-98.0); Mean Platelet Volume 8.8 fL (7.4-10.4); Monocytes 3 % (0-10); Neutrophil 76 % (42-75); Platelet Count 199 thou/uL (130-400); Platelet Morphology Comment Appears Adequate; RBC Distribution Width 11.7 % (11.5-14.5); RBC Morphology Normal; Reactive Lymphocytes 1 % (0-10); Red Blood Cell (RBC) Count 3.25 mill/uL (4.70-6.10); White Blood Cell (WBC) Count 8.4 thou/uL (4.8-10.8)
[2021-03-02 08:07] LABS: Actual Bicarbonate (HCO3a) 33.1 mEq/L (22-28); Base Excess (BEa) 9.7 mEq/L (-2.0 to +3.0); CO2 Tension 40.2 mmHg (35.0-45.0); Carboxyhemoglobin (COHb) 0.6 gm% (0.0-3.0); Hemoglobin (Hb) 10.5 g/dL (14.0-18.0); O2 Tension (PaO2), arterial 353.5 mmHg (80.0-100.0); Potassium - ABG Lab 2.93 mmol/L (3.70-5.30); pH, Arterial 7.53 (7.35-7.45)
[2021-03-02 08:08] LABS: Puncture Site RRA
[2021-03-02] MEDS: Enoxaparin Sodium 40 MG/0.4 ML SYRINGE SC SCH ×2 (08:23→20:51)
[2021-03-02] MEDS: Pantoprazole 40 MG GRANULES PACKET PER TUBE SCH (08:24)
[2021-03-02] MEDS: Lorazepam 1 MG TAB PO PRN (08:24)
[2021-03-02] MEDS: Aspirin Chewable 81 MG TAB PO SCH (08:24)
[2021-03-02] MEDS ORDERED: Electrolyte Replacement Protocol FS PRN (11:45)
[2021-03-02] MEDS: Fentanyl CADD 100 ML IV SCH (11:46)
[2021-03-02] MEDS: Polyethylene Glycol 3350 17 GM Packet PO SCH (11:47)
[2021-03-02] MEDS: Senokot 8.6 MG TAB PER TUBE SCH ×2 (11:47→20:52)
[2021-03-02] MEDS ORDERED: Potassium Chloride 40 MEQ in Sodium Chloride 0.9% 250 ML 250 ML IVPB SCH (14:00)
[2021-03-02 14:23] LABS: Base Excess 7.1 mEq/L (-2.0 to +3.0); Calcium, Ionized (venous) 1.06 mmol/L (1.16-1.32); Chloride (VBG) 100 mmol/L (98-106); Hemoglobin (Hb) 11.1 g/dL (13.2-17.3); Potassium (VBG) 2.92 mmol/L (3.70-5.30); Sodium 138.7 mmol/L (133-146); pH (venous) 7.44 (7.32-7.43)
[2021-03-02 14:34] LABS: Actual Bicarbonate (HCO3v) 32 mEq/L (22-28)
[2021-03-02 16:47] LABS: Vancomycin, Trough 8.1 ug/mL
[2021-03-02] MEDS: Acetaminophen 325 MG TAB PO PRN (17:59)
[2021-03-02] MEDS: Vancomycin 1.5 GRAM/300 ML BAG 1.5 GM in Premix Bag 1 BAG IVPB SCH (18:31)
[2021-03-02] MEDS: Propofol BOLUS 1,000 MG/100 ML VIAL IV PRN (18:32)
[2021-03-02] MEDS: Morphine 2 MG/ML VIAL SLOW IVP PRN (21:30)
[2021-03-03] MEDS: Vancomycin 1.5 GRAM/300 ML BAG 1.5 GM in Premix Bag 1 BAG IVPB SCH ×3 (01:21→16:56)
[2021-03-03] MEDS: Fentanyl CADD 100 ML IV SCH ×2 (02:09→19:03)
[2021-03-03] MEDS: Propofol 1,000 MG/100 ML VIAL IV PRN ×4 (02:34→23:54)
[2021-03-03 04:40] LABS: Band 1 % (5-11); Eosinophils 1 % (0-10); Hemoglobin 10.5 g/dL (14.0-18.0); Hypochromia SLIGHT = 6-15 cells (100X) (0-5/hpf); Lymphocytes 30 % (21-51); MDiff Complete? YES; Mean Corpuscular HGB CONC 32.4 g/dL (32.0-36.0); Mean Corpuscular Hemoglobin 30.6 pg (27.0-31.0); Mean Corpuscular Volume 94.3 fL (78.0-98.0); Mean Platelet Volume 8.8 fL (7.4-10.4); Monocytes 2 % (0-10); Neutrophil 66 % (42-75); Platelet Count 236 thou/uL (130-400); Platelet Morphology Comment Appears Adequate; RBC Distribution Width 11.9 % (11.5-14.5); Red Blood Cell (RBC) Count 3.45 mill/uL (4.70-6.10)
[2021-03-03 04:49] LABS: Anion Gap 15 mmol/L (10-20); BUN (Urea Nitrogen) 5 mg/dL (8.9-20.6); Calc. Creatinine Clearance 191 mL/min (70-130); Carbon Dioxide 30 mmol/L (22-29); Chloride 102 mmol/L (98-107); Glucose 108 mg/dL (70-105); Potassium 3.6 mmol/L (3.5-5.1); Sodium 143 mmol/L (136-145)
[2021-03-03] MEDS: Norepinephrine 8 MG/0.9% NS 250 ML IVPB SCH (05:54)
[2021-03-03] MEDS: Lorazepam 2 MG/ML VIAL SLOW IVP PRN ×2 (05:54→07:41)
[2021-03-03] MEDS: Propofol BOLUS 1,000 MG/100 ML VIAL IV PRN (05:54)
[2021-03-03 07:40] LABS: Base Excess 8.9 mEq/L (-2.0 to +3.0); Calcium, Ionized (venous) 1.09 mmol/L (1.16-1.32); Chloride (VBG) 102 mmol/L (98-106); Hemoglobin (Hb) 11.6 g/dL (13.2-17.3); Potassium (VBG) 3.47 mmol/L (3.70-5.30); Sodium 141.5 mmol/L (133-146); pH (venous) 7.43 (7.32-7.43)
[2021-03-03 07:44] LABS: Actual Bicarbonate (HCO3v) 35 mEq/L (22-28)
[2021-03-03] MEDS: Enoxaparin Sodium 40 MG/0.4 ML SYRINGE SC SCH ×2 (08:06→20:19)
[2021-03-03] MEDS: Aspirin Chewable 81 MG TAB PO SCH (08:06)
[2021-03-03] MEDS: Pantoprazole 40 MG GRANULES PACKET PER TUBE SCH (08:06)
[2021-03-03] MEDS: Polyethylene Glycol 3350 17 GM Packet PO SCH (08:07)
[2021-03-03] MEDS: Senokot 8.6 MG TAB PER TUBE SCH ×2 (08:07→23:53)
[2021-03-03] MEDS: Acetaminophen 325 MG TAB PO PRN ×2 (08:10→17:45)
[2021-03-03] MEDS: Lorazepam 1 MG TAB PO PRN (08:11)
[2021-03-03] MEDS: Scopolamine 1.5 mg/72 hour Patch TOP SCH (15:32)
[2021-03-03] MEDS: Oxazepam 10 MG CAP PO PRN (16:56)
[2021-03-03 20:12] LABS: Actual Bicarbonate (HCO3a) 29.5 mEq/L (22-28); Base Excess (BEa) 3.8 mEq/L (-2.0 to +3.0); CO2 Tension 49.1 mmHg (35.0-45.0); Calcium, Ionized (arterial) 1.11 mmol/L (1.12-1.30); Carboxyhemoglobin (COHb) 0.9 gm% (0.0-3.0); Hemoglobin (Hb) 11.3 g/dL (14.0-18.0); Potassium - ABG Lab 3.98 mmol/L (3.70-5.30)
[2021-03-03 20:13] LABS: O2 Tension (PaO2), arterial 57.9 mmHg (80.0-100.0); Puncture Site RRA
[2021-03-03 20:14] LABS: ALV-art Gradient 272.875 mmHg (0-20)
[2021-03-03] MEDS ORDERED: Oxazepam 10 MG CAP PO SCH (21:00)
[2021-03-03] MEDS: Cefepime 1 GM in Sodium Chloride 0.9% 100 ML IVPB SCH (23:54)
[2021-03-04] MEDS: Oxazepam 10 MG CAP PO PRN ×2 (00:01→08:46)
[2021-03-04 02:05] LABS: Vancomycin, Trough 14.5 ug/mL
[2021-03-04] MEDS: Vancomycin 1.5 GRAM/300 ML BAG 1.5 GM in Premix Bag 1 BAG IVPB SCH ×3 (02:19→17:47)
[2021-03-04] MEDS: Dexmedetomidine 1,000 MCG in Sodium Chloride 0.9% 250 ML 240 ML IVPB SCH ×2 (02:21→22:23)
[2021-03-04 04:48] LABS: Band 16 % (5-11); Eosinophils 1 % (0-10); Hemoglobin 10.8 g/dL (14.0-18.0); Hypochromia SLIGHT = 6-15 cells (100X) (0-5/hpf); Lymphocytes 12 % (21-51); MDiff Complete? YES; Mean Corpuscular HGB CONC 30.6 g/dL (32.0-36.0); Mean Corpuscular Hemoglobin 28.8 pg (27.0-31.0); Mean Corpuscular Volume 94.3 fL (78.0-98.0); Mean Platelet Volume 9.4 fL (7.4-10.4); Monocytes 9 % (0-10); Neutrophil 62 % (42-75); Platelet Count 217 thou/uL (130-400); Platelet Morphology Comment Appears Adequate; RBC Distribution Width 12.2 % (11.5-14.5); Red Blood Cell (RBC) Count 3.74 mill/uL (4.70-6.10); White Blood Cell (WBC) Count 19.9 thou/uL (4.8-10.8)
[2021-03-04 04:55] LABS: Anion Gap 12 mmol/L (10-20); BUN (Urea Nitrogen) 10 mg/dL (8.9-20.6); Calc. Creatinine Clearance 187 mL/min (70-130); Calcium 8.1 mg/dL (7.8-10.44); Carbon Dioxide 29 mmol/L (22-29); Chloride 101 mmol/L (98-107); Glucose 110 mg/dL (70-105); Sodium 138 mmol/L (136-145)
[2021-03-04] MEDS: Fentanyl CADD 100 ML IV SCH (06:38)
[2021-03-04] MEDS: Propofol 1,000 MG/100 ML VIAL IV PRN ×3 (07:30→22:42)
[2021-03-04] MEDS: Aspirin Chewable 81 MG TAB PO SCH (08:46)
[2021-03-04] MEDS: Enoxaparin Sodium 40 MG/0.4 ML SYRINGE SC SCH ×2 (08:46→19:37)
[2021-03-04] MEDS: Pantoprazole 40 MG GRANULES PACKET PER TUBE SCH (08:46)
[2021-03-04] MEDS: Senokot 8.6 MG TAB PER TUBE SCH ×2 (08:47→19:36)
[2021-03-04] MEDS: Polyethylene Glycol 3350 17 GM Packet PO SCH (08:47)
[2021-03-04] MEDS: Acetaminophen 325 MG TAB PO PRN (08:49)
[2021-03-04] MEDS ORDERED: Sterile Water 10 ML VIAL FS PRN (09:30)
[2021-03-04] MEDS: Haloperidol Lactate 5 MG/ML VIAL SLOW IVP PRN ×2 (10:00→19:37)
[2021-03-04] MEDS: Ziprasidone 20 MG VIAL IM SCH (10:00)
[2021-03-04] MEDS ORDERED: Iopamidol-370 76% 500 ML 1 ML ONE (10:10)
[2021-03-04] MEDS ORDERED: ceFAZolin 2 GM/Dextrose 50 ML 2 GM in Premix Bag 1 BAG IVPB SCH (13:30)
[2021-03-04] MEDS: Cefepime 1 GM in Sodium Chloride 0.9% 100 ML IVPB SCH ×2 (14:17→23:16)
[2021-03-04] MEDS: metroNIDAZOLE 500 MG in Premix Bag 1 BAG IVPB SCH ×2 (14:18→22:32)
[2021-03-04] MEDS: Norepinephrine 8 MG/0.9% NS 250 ML IVPB SCH (22:42)
[2021-03-05] MEDS: Haloperidol Lactate 5 MG/ML VIAL SLOW IVP PRN ×3 (00:58→12:30)
[2021-03-05] MEDS: Morphine 2 MG/ML VIAL SLOW IVP PRN ×3 (01:27→05:38)
[2021-03-05 01:49] LABS: Vancomycin, Trough 15.6 ug/mL
[2021-03-05] MEDS: Vancomycin 1.5 GRAM/300 ML BAG 1.5 GM in Premix Bag 1 BAG IVPB SCH ×3 (03:39→18:09)
[2021-03-05] MEDS: Norepinephrine 8 MG/0.9% NS 250 ML IVPB SCH ×2 (04:13→08:25)
[2021-03-05 04:27] LABS: Anion Gap 18 mmol/L (10-20); BUN (Urea Nitrogen) 6 mg/dL (8.9-20.6); Calc. Creatinine Clearance 179 mL/min (70-130); Calcium 8.1 mg/dL (7.8-10.44); Carbon Dioxide 23 mmol/L (22-29); Chloride 104 mmol/L (98-107); Glucose 128 mg/dL (70-105); Potassium 3.5 mmol/L (3.5-5.1); Sodium 141 mmol/L (136-145)
[2021-03-05 04:49] LABS: Band 6 % (5-11); Eosinophils 4 % (0-10); Hemoglobin 10.4 g/dL (14.0-18.0); Lymphocytes 12 % (21-51); MDiff Complete? YES; Mean Corpuscular HGB CONC 30.9 g/dL (32.0-36.0); Mean Corpuscular Hemoglobin 29.1 pg (27.0-31.0); Mean Corpuscular Volume 94.1 fL (78.0-98.0); Mean Platelet Volume 8.3 fL (7.4-10.4); Monocytes 6 % (0-10); Neutrophil 72 % (42-75); Platelet Count 293 thou/uL (130-400); RBC Distribution Width 12.1 % (11.5-14.5); Red Blood Cell (RBC) Count 3.57 mill/uL (4.70-6.10); White Blood Cell (WBC) Count 18.9 thou/uL (4.8-10.8)
[2021-03-05] MEDS: metroNIDAZOLE 500 MG in Premix Bag 1 BAG IVPB SCH ×3 (05:15→21:31)
[2021-03-05] MEDS: Propofol 1,000 MG/100 ML VIAL IV PRN ×3 (06:38→22:27)
[2021-03-05] MEDS: Ziprasidone 20 MG VIAL IM SCH (08:25)
[2021-03-05] MEDS: Enoxaparin Sodium 40 MG/0.4 ML SYRINGE SC SCH ×3 (08:25→21:30)
[2021-03-05] MEDS: Fentanyl CADD 100 ML IV SCH (11:27)
[2021-03-05] MEDS: Lorazepam 2 MG/ML VIAL SLOW IVP PRN (12:00)
[2021-03-05] MEDS: Senokot 8.6 MG TAB PER TUBE SCH ×2 (12:55→21:31)
[2021-03-05] MEDS: Aspirin Chewable 81 MG TAB PO SCH (12:55)
[2021-03-05] MEDS: Polyethylene Glycol 3350 17 GM Packet PO SCH (12:55)
[2021-03-05] MEDS: Pantoprazole 40 MG GRANULES PACKET PER TUBE SCH (12:55)
[2021-03-05] MEDS: Cefepime 1 GM in Sodium Chloride 0.9% 100 ML IVPB SCH (12:56)
[2021-03-05] MEDS: Lactated Ringer's 1,000 ML IV SCH ×2 (12:58→23:44)
[2021-03-05] MEDS ORDERED: Midazolam HCl 2 mg/2 ml Vial ONE (12:58)
[2021-03-05] MEDS: Potassium Chloride 20 MEQ in Premix Bag 1 BAG IVPB SCH (12:58)
[2021-03-05] MEDS ORDERED: Fentanyl 100 MCG/2 ML VIAL ONE (12:58)
[2021-03-05] MEDS ORDERED: Lidocaine 1% w/Epinephrine 1:100K 20 ML VIAL ONE (13:00)
[2021-03-05] MEDS ORDERED: Bupivacaine 0.25% HCL 30 ML VIAL ONE (13:00)
[2021-03-05] MEDS ORDERED: PROPOFOL 200 MG/20 ML VIAL ONE (13:22)
[2021-03-05] MEDS ORDERED: Rocuronium Bromide 10 MG/ML (10ML VIAL) ONE (13:22)
[2021-03-05 13:38] LABS: Potassium 3.2 mmol/L (3.5-5.1)
[2021-03-05] MEDS ORDERED: Potassium Chloride 40 MEQ in Sodium Chloride 0.9% 250 ML 250 ML IVPB SCH (16:00)
[2021-03-05] MEDS: Dexmedetomidine 1,000 MCG in Sodium Chloride 0.9% 250 ML 240 ML IVPB SCH (22:36)
[2021-03-06] MEDS: Norepinephrine 8 MG/0.9% NS 250 ML IVPB SCH ×2 (01:56→07:55)
[2021-03-06] MEDS: Propofol 1,000 MG/100 ML VIAL IV PRN ×5 (01:57→23:17)
[2021-03-06] MEDS: Lorazepam 2 MG/ML VIAL SLOW IVP PRN ×7 (02:02→17:48)
[2021-03-06 02:17] LABS: Vancomycin, Trough 5.8 ug/mL
[2021-03-06] MEDS: Vancomycin 1.5 GRAM/300 ML BAG 1.5 GM in Premix Bag 1 BAG IVPB SCH ×3 (02:44→17:52)
[2021-03-06] MEDS ORDERED: Fentanyl CADD 100 ML ONE (03:00)
[2021-03-06] MEDS: Fentanyl CADD 100 ML IV SCH (03:03)
[2021-03-06 03:47] LABS: Hemoglobin 9.9 g/dL (14.0-18.0); Mean Corpuscular Volume 93.8 fL (78.0-98.0); Mean Platelet Volume 7.3 fL (7.4-10.4); Platelet Count 367 thou/uL (130-400); RBC Distribution Width 12.1 % (11.5-14.5); Red Blood Cell (RBC) Count 3.29 mill/uL (4.70-6.10); White Blood Cell (WBC) Count 14.1 thou/uL (4.8-10.8)
[2021-03-06 04:05] LABS: ALT (SGPT) 26 U/L (8-55); AST (SGOT) 15 U/L (5-34); Albumin 2.4 g/dL (3.5-5.0); Alkaline Phosphatase 53 U/L (40-110); Anion Gap 16 mmol/L (10-20); BUN (Urea Nitrogen) Less than 4 mg/dL (8.9-20.6); Bilirubin, Total 0.4 mg/dL (0.2-1.2); Calc. Creatinine Clearance 187 mL/min (70-130); Calcium 8.1 mg/dL (7.8-10.44); Carbon Dioxide 22 mmol/L (22-29); Chloride 106 mmol/L (98-107); Globulin 3.9 g/dL (2.4-3.5); Glucose 128 mg/dL (70-105); Magnesium 1.9 mg/dL (1.6-2.6); Potassium 3.1 mmol/L (3.5-5.1); Protein, Total 6.3 g/dL (6.0-8.3); Sodium 141 mmol/L (136-145)
[2021-03-06] MEDS ORDERED: Magnesium 2 GM/50 ML 2 GM in Premix Bag 1 BAG IVPB SCH (04:45)
[2021-03-06] MEDS ORDERED: Potassium Chloride 40 MEQ in Premix Bag 1 BAG IVPB SCH (04:45)
[2021-03-06] MEDS: metroNIDAZOLE 500 MG in Premix Bag 1 BAG IVPB SCH ×3 (05:28→21:50)
[2021-03-06 05:37] LABS: Band 6 % (5-11); Eosinophils 2 % (0-10); Lymphocytes 21 % (21-51); MDiff Complete? YES; Metamyelocyte 1 % (0-0); Monocytes 5 % (0-10); Myelocyte 1 % (0-0); Neutrophil 64 % (42-75)
[2021-03-06 07:00] LABS: Actual Bicarbonate (HCO3a) 23.4 mEq/L (22-28); Base Excess (BEa) -2.1 mEq/L (-2.0 to +3.0); CO2 Tension 42.8 mmHg (35.0-45.0); Calcium, Ionized (arterial) 1.15 mmol/L (1.12-1.30); Carboxyhemoglobin (COHb) 0.8 gm% (0.0-3.0); Hemoglobin (Hb) 12.3 g/dL (14.0-18.0); O2 Tension (PaO2), arterial 75.2 mmHg (80.0-100.0); Potassium - ABG Lab 3.14 mmol/L (3.70-5.30); pH, Arterial 7.36 (7.35-7.45)
[2021-03-06] MEDS: Enoxaparin Sodium 40 MG/0.4 ML SYRINGE SC SCH ×2 (07:53→21:51)
[2021-03-06] MEDS: Ziprasidone 20 MG VIAL IM SCH (07:54)
[2021-03-06] MEDS: Aspirin Chewable 81 MG TAB PO SCH (07:54)
[2021-03-06] MEDS: Haloperidol Lactate 5 MG/ML VIAL SLOW IVP PRN ×3 (07:54→17:52)
[2021-03-06] MEDS: Acetaminophen 325 MG TAB PO PRN (07:54)
[2021-03-06] MEDS: Pantoprazole 40 MG GRANULES PACKET PER TUBE SCH (07:54)
[2021-03-06 08:15] LABS: Puncture Site LRA
[2021-03-06] MEDS ORDERED: Lidocaine 1% w/Epinephrine 1:100K 20 ML VIAL ONE (08:28)
[2021-03-06] MEDS: Morphine 2 MG/ML VIAL SLOW IVP PRN ×3 (11:30→17:48)
[2021-03-06] MEDS: Polyethylene Glycol 3350 17 GM Packet PO SCH (12:29)
[2021-03-06] MEDS: Scopolamine 1.5 mg/72 hour Patch TOP SCH (12:29)
[2021-03-06] MEDS: Senokot 8.6 MG TAB PER TUBE SCH ×2 (12:29→21:51)
[2021-03-06] MEDS: Cefepime 1 GM in Sodium Chloride 0.9% 100 ML IVPB SCH ×3 (13:20→23:17)
[2021-03-06] MEDS: Lactated Ringer's 1,000 ML IV SCH (13:55)
[2021-03-06 19:24] LABS: Vancomycin, Random 15.5 ug/mL (See Comment)
[2021-03-06] MEDS: Dexmedetomidine 1,000 MCG in Sodium Chloride 0.9% 250 ML 240 ML IVPB SCH (20:56)
[2021-03-07] MEDS ORDERED: Fentanyl CADD 100 ML ONE ×2 (01:23→20:49)
[2021-03-07] MEDS: Fentanyl CADD 100 ML IV SCH ×2 (01:25→11:40)
[2021-03-07] MEDS: Vancomycin 1.5 GRAM/300 ML BAG 1.5 GM in Premix Bag 1 BAG IVPB SCH ×3 (01:50→18:30)
[2021-03-07] MEDS: Haloperidol Lactate 5 MG/ML VIAL SLOW IVP PRN ×2 (02:15→12:03)
[2021-03-07] MEDS: Propofol 1,000 MG/100 ML VIAL IV PRN ×3 (03:15→08:58)
[2021-03-07] MEDS: Lactated Ringer's 1,000 ML IV SCH ×2 (03:15→18:38)
[2021-03-07] MEDS: Norepinephrine 8 MG/0.9% NS 250 ML IVPB SCH ×2 (03:24→13:34)
[2021-03-07 04:55] LABS: Hemoglobin 9.7 g/dL (14.0-18.0); Mean Corpuscular HGB CONC 32.4 g/dL (32.0-36.0); Mean Corpuscular Hemoglobin 30.6 pg (27.0-31.0); Mean Corpuscular Volume 94.3 fL (78.0-98.0); Mean Platelet Volume 8.2 fL (7.4-10.4); Platelet Count 376 thou/uL (130-400); RBC Distribution Width 12.2 % (11.5-14.5); Red Blood Cell (RBC) Count 3.18 mill/uL (4.70-6.10); White Blood Cell (WBC) Count 14.8 thou/uL (4.8-10.8)
[2021-03-07 04:59] LABS: ALT (SGPT) 20 U/L (8-55); AST (SGOT) 14 U/L (5-34); Albumin 2.4 g/dL (3.5-5.0); Alkaline Phosphatase 52 U/L (40-110); Anion Gap 16 mmol/L (10-20); BUN (Urea Nitrogen) Less than 4 mg/dL (8.9-20.6); Bilirubin, Total 0.3 mg/dL (0.2-1.2); Calc. Creatinine Clearance 190 mL/min (70-130); Carbon Dioxide 24 mmol/L (22-29); Chloride 102 mmol/L (98-107); Glucose 120 mg/dL (70-105); Potassium 3.5 mmol/L (3.5-5.1); Protein, Total 6.4 g/dL (6.0-8.3); Sodium 138 mmol/L (136-145)
[2021-03-07 05:17] LABS: MDiff Complete? YES
[2021-03-07 05:18] LABS: Band 19 % (5-11); Eosinophils 6 % (0-10); Lymphocytes 17 % (21-51); Monocytes 12 % (0-10); Neutrophil 45 % (42-75); Reactive Lymphocytes 1 % (0-10)
[2021-03-07] MEDS ORDERED: Potassium Chloride 40 MEQ in Sodium Chloride 0.9% 250 ML 250 ML IVPB SCH (05:30)
[2021-03-07] MEDS: metroNIDAZOLE 500 MG in Premix Bag 1 BAG IVPB SCH ×3 (05:33→21:45)
[2021-03-07 07:56] LABS: Actual Bicarbonate (HCO3a) 23.2 mEq/L (22-28); CO2 Tension 40.9 mmHg (35.0-45.0); Calcium, Ionized (arterial) 1.14 mmol/L (1.12-1.30); Carboxyhemoglobin (COHb) 0.4 gm% (0.0-3.0); Hemoglobin (Hb) 10.6 g/dL (14.0-18.0); O2 Tension (PaO2), arterial 106.9 mmHg (80.0-100.0); Potassium - ABG Lab 4.12 mmol/L (3.70-5.30); pH, Arterial 7.37 (7.35-7.45)
[2021-03-07] MEDS: Lorazepam 2 MG/ML VIAL SLOW IVP PRN ×2 (08:10→16:46)
[2021-03-07 08:29] LABS: Puncture Site LRA
[2021-03-07 08:30] LABS: ALV-art Gradient 269.775 mmHg (0-20)
[2021-03-07] MEDS: Enoxaparin Sodium 40 MG/0.4 ML SYRINGE SC SCH ×2 (08:58→20:38)
[2021-03-07] MEDS: Polyethylene Glycol 3350 17 GM Packet PO SCH (08:58)
[2021-03-07] MEDS: Pantoprazole 40 MG GRANULES PACKET PER TUBE SCH (08:58)
[2021-03-07] MEDS: Aspirin Chewable 81 MG TAB PO SCH (08:58)
[2021-03-07] MEDS: Senokot 8.6 MG TAB PER TUBE SCH ×2 (08:59→20:39)
[2021-03-07] MEDS: Dexmedetomidine 1,000 MCG in Sodium Chloride 0.9% 250 ML 240 ML IVPB SCH ×2 (09:07→18:19)
[2021-03-07] MEDS: Cefepime 1 GM in Sodium Chloride 0.9% 100 ML IVPB SCH (11:44)
[2021-03-07] MEDS: Haloperidol Lactate 5 MG/ML VIAL SLOW IVP SCH ×3 (12:05→23:25)
[2021-03-07] MEDS: Acetaminophen 325 MG TAB PO PRN (16:31)
[2021-03-07] MEDS ORDERED: MEROPENEM 1 GM/50 ML 1 GM in Premix Bag 1 BAG IVPB SCH (18:00)
[2021-03-07 19:06] LABS: Vancomycin, Trough 11.6 ug/mL
[2021-03-07] MEDS: Micafungin 100 MG in Sodium Chloride 0.9% 100 ML IVPB SCH (20:39)
[2021-03-07] MEDS: Vancomycin 1 GM in Premix Bag 1 BAG IVPB SCH (23:25)
[2021-03-08] MEDS: MEROPENEM 1 GM/50 ML 1 GM in Premix Bag 1 BAG IVPB SCH ×3 (02:08→17:49)
[2021-03-08 04:36] LABS: Anion Gap 13 mmol/L (10-20); BUN (Urea Nitrogen) 6 mg/dL (8.9-20.6); Calc. Creatinine Clearance 198 mL/min (70-130); Carbon Dioxide 28 mmol/L (22-29); Chloride 99 mmol/L (98-107); Glucose 125 mg/dL (70-105); Potassium 3.3 mmol/L (3.5-5.1); Sodium 137 mmol/L (136-145)
[2021-03-08 04:49] LABS: Mean Corpuscular HGB CONC 32.1 g/dL (32.0-36.0); Mean Corpuscular Volume 93.5 fL (78.0-98.0); Mean Platelet Volume 8.1 fL (7.4-10.4); Platelet Count 345 thou/uL (130-400); RBC Distribution Width 12.2 % (11.5-14.5); Red Blood Cell (RBC) Count 3.34 mill/uL (4.70-6.10); White Blood Cell (WBC) Count 18.5 thou/uL (4.8-10.8)
[2021-03-08 05:02] LABS: Band 17 % (5-11); Eosinophils 4 % (0-10); Lymphocytes 13 % (21-51); MDiff Complete? YES; Monocytes 5 % (0-10); Myelocyte 1 % (0-0); Neutrophil 60 % (42-75)
[2021-03-08] MEDS ORDERED: Potassium Chloride 40 MEQ in Sodium Chloride 0.9% 250 ML 250 ML IVPB SCH (05:15)
[2021-03-08] MEDS ORDERED: Fentanyl CADD 100 ML ONE ×2 (05:23→23:27)
[2021-03-08] MEDS: Haloperidol Lactate 5 MG/ML VIAL SLOW IVP SCH ×4 (05:31→23:31)
[2021-03-08] MEDS: Vancomycin 1 GM in Premix Bag 1 BAG IVPB SCH ×4 (05:32→23:31)
[2021-03-08] MEDS: metroNIDAZOLE 500 MG in Premix Bag 1 BAG IVPB SCH (05:32)
[2021-03-08] MEDS: Dexmedetomidine 1,000 MCG in Sodium Chloride 0.9% 250 ML 240 ML IVPB SCH ×2 (05:56→16:56)
[2021-03-08 07:24] LABS: Actual Bicarbonate (HCO3a) 28.8 mEq/L (22-28); Base Excess (BEa) 4.7 mEq/L (-2.0 to +3.0); CO2 Tension 40.8 mmHg (35.0-45.0); Calcium, Ionized (arterial) 1.12 mmol/L (1.12-1.30); Carboxyhemoglobin (COHb) 0.9 gm% (0.0-3.0); Hemoglobin (Hb) 9.7 g/dL (14.0-18.0); O2 Tension (PaO2), arterial 67.2 mmHg (80.0-100.0); pH, Arterial 7.47 (7.35-7.45)
[2021-03-08 07:47] LABS: Puncture Site LRA
[2021-03-08] MEDS: Norepinephrine 8 MG/0.9% NS 250 ML IVPB SCH ×2 (07:49→21:02)
[2021-03-08] MEDS: Aspirin Chewable 81 MG TAB PO SCH (08:37)
[2021-03-08] MEDS: Pantoprazole 40 MG GRANULES PACKET PER TUBE SCH (08:37)
[2021-03-08] MEDS: Enoxaparin Sodium 40 MG/0.4 ML SYRINGE SC SCH ×2 (08:37→21:02)
[2021-03-08] MEDS: Polyethylene Glycol 3350 17 GM Packet PO SCH (08:38)
[2021-03-08] MEDS: Senokot 8.6 MG TAB PER TUBE SCH ×2 (08:50→21:03)
[2021-03-08] MEDS: Lactated Ringer's 1,000 ML IV SCH (08:51)
[2021-03-08 11:25] LABS: Vancomycin, Trough 17.5 ug/mL
[2021-03-08] MEDS: Fentanyl CADD 100 ML IV SCH (15:17)
[2021-03-08] MEDS: Micafungin 100 MG in Sodium Chloride 0.9% 100 ML IVPB SCH (21:02)
[2021-03-09] MEDS: Lactated Ringer's 1,000 ML IV SCH ×2 (01:16→13:37)
[2021-03-09] MEDS: MEROPENEM 1 GM/50 ML 1 GM in Premix Bag 1 BAG IVPB SCH ×3 (01:16→17:09)
[2021-03-09] MEDS: Acetaminophen 325 MG TAB PO PRN (04:41)
[2021-03-09] MEDS: Vancomycin 1 GM in Premix Bag 1 BAG IVPB SCH ×4 (05:22→23:53)
[2021-03-09] MEDS: Haloperidol Lactate 5 MG/ML VIAL SLOW IVP SCH ×4 (05:22→23:53)
[2021-03-09 07:20] LABS: Calcium, Ionized (venous) 1.08 mmol/L (1.16-1.32); Chloride (VBG) 96 mmol/L (98-106); Hemoglobin (Hb) 10.3 g/dL (13.2-17.3); Potassium (VBG) 3.04 mmol/L (3.70-5.30); pH (venous) 7.45 (7.32-7.43)
[2021-03-09 07:21] LABS: Actual Bicarbonate (HCO3v) 31 mEq/L (22-28)
[2021-03-09] MEDS ORDERED: Fentanyl CADD 100 ML ONE (07:34)
[2021-03-09 07:44] LABS: Hemoglobin 9.3 g/dL (14.0-18.0); Mean Corpuscular HGB CONC 30.4 g/dL (32.0-36.0); Mean Corpuscular Hemoglobin 28.8 pg (27.0-31.0); Mean Corpuscular Volume 94.6 fL (78.0-98.0); Platelet Count 567 thou/uL (130-400); RBC Distribution Width 12.4 % (11.5-14.5); Red Blood Cell (RBC) Count 3.24 mill/uL (4.70-6.10); White Blood Cell (WBC) Count 16.4 thou/uL (4.8-10.8)
[2021-03-09] MEDS: Fentanyl CADD 100 ML IV SCH (07:48)
[2021-03-09] MEDS: Norepinephrine 8 MG/0.9% NS 250 ML IVPB SCH ×2 (07:48→15:43)
[2021-03-09] MEDS: Pantoprazole 40 MG GRANULES PACKET PER TUBE SCH (07:49)
[2021-03-09] MEDS: Enoxaparin Sodium 40 MG/0.4 ML SYRINGE SC SCH ×2 (07:49→21:48)
[2021-03-09] MEDS: Senokot 8.6 MG TAB PER TUBE SCH ×2 (07:49→21:49)
[2021-03-09] MEDS: Polyethylene Glycol 3350 17 GM Packet PO SCH (07:49)
[2021-03-09] MEDS: Aspirin Chewable 81 MG TAB PO SCH (07:49)
[2021-03-09 08:00] LABS: ALT (SGPT) 16 U/L (8-55); AST (SGOT) 24 U/L (5-34); Albumin 2.4 g/dL (3.5-5.0); Alkaline Phosphatase 54 U/L (40-110); Anion Gap 12 mmol/L (10-20); BUN (Urea Nitrogen) 5 mg/dL (8.9-20.6); Bilirubin, Total 0.3 mg/dL (0.2-1.2); Calc. Creatinine Clearance 181 mL/min (70-130); Calcium 8.1 mg/dL (7.8-10.44); Carbon Dioxide 37 mmol/L (22-29); Chloride 96 mmol/L (98-107); Globulin 3.8 g/dL (2.4-3.5); Glucose 195 mg/dL (70-105); Potassium 3.3 mmol/L (3.5-5.1); Protein, Total 6.2 g/dL (6.0-8.3); Sodium 142 mmol/L (136-145)
[2021-03-09 08:16] LABS: Band 7 % (5-11); Eosinophils 5 % (0-10); Lymphocytes 14 % (21-51); MDiff Complete? YES; Metamyelocyte 1 % (0-0); Monocytes 10 % (0-10); Myelocyte 1 % (0-0); Neutrophil 61 % (42-75); Platelet Morphology Comment Appears Increased; Polychromasia SLIGHT = 2-3 cells (100X) (0-2/hpf)
[2021-03-09 08:40] LABS: Actual Bicarbonate (HCO3a) 40.2 mEq/L (22-28); Base Excess (BEa) 13.3 mEq/L (-2.0 to +3.0); Calcium, Ionized (arterial) 1.12 mmol/L (1.12-1.30); Carboxyhemoglobin (COHb) 0.9 gm% (0.0-3.0); Hemoglobin (Hb) 10.2 g/dL (14.0-18.0); Potassium - ABG Lab 3.24 mmol/L (3.70-5.30); pH, Arterial 7.41 (7.35-7.45)
[2021-03-09 08:45] LABS: CO2 Tension 65.1 mmHg (35.0-45.0); O2 Tension (PaO2), arterial 43.6 mmHg (80.0-100.0)
[2021-03-09 08:46] LABS: ALV-art Gradient 195.875 mmHg (0-20); Puncture Site RRA
[2021-03-09] MEDS ORDERED: Potassium Chloride 40 MEQ in Sodium Chloride 0.9% 250 ML 250 ML IVPB SCH (09:00)
[2021-03-09] MEDS: Dexmedetomidine 1,000 MCG in Sodium Chloride 0.9% 250 ML 240 ML IVPB SCH ×2 (09:22→21:50)
[2021-03-09] MEDS: Ziprasidone 20 MG VIAL IM SCH (09:27)
[2021-03-09] MEDS ORDERED: Sterile Water 10 ML ONE (09:28)
[2021-03-09 12:42] LABS: Potassium 3.7 mmol/L (3.5-5.1)
[2021-03-09] MEDS: Micafungin 100 MG in Sodium Chloride 0.9% 100 ML IVPB SCH (21:48)
[2021-03-10] MEDS: Norepinephrine 8 MG/0.9% NS 250 ML IVPB SCH ×2 (00:03→09:12)
[2021-03-10] MEDS: Acetaminophen 325 MG TAB PO PRN ×3 (00:16→14:11)
[2021-03-10] MEDS: Lactated Ringer's 1,000 ML IV SCH ×2 (02:15→15:59)
[2021-03-10] MEDS: MEROPENEM 1 GM/50 ML 1 GM in Premix Bag 1 BAG IVPB SCH ×3 (02:15→17:01)
[2021-03-10] MEDS: Lorazepam 2 MG/ML VIAL SLOW IVP PRN ×6 (03:52→21:16)
[2021-03-10 04:46] LABS: BUN (Urea Nitrogen) 4 mg/dL (8.9-20.6); Calc. Creatinine Clearance 181 mL/min (70-130); Calcium 8.1 mg/dL (7.8-10.44); Glucose 130 mg/dL (70-105); Hemoglobin 9.5 g/dL (14.0-18.0); Mean Corpuscular HGB CONC 33.4 g/dL (32.0-36.0); Mean Corpuscular Hemoglobin 31.2 pg (27.0-31.0); Mean Corpuscular Volume 93.2 fL (78.0-98.0); Platelet Count 621 thou/uL (130-400); RBC Distribution Width 12.5 % (11.5-14.5); Red Blood Cell (RBC) Count 3.05 mill/uL (4.70-6.10); White Blood Cell (WBC) Count 19.4 thou/uL (4.8-10.8)
[2021-03-10 04:55] LABS: Anion Gap 16 mmol/L (10-20); Carbon Dioxide 34 mmol/L (22-29); Chloride 95 mmol/L (98-107); Potassium 3.9 mmol/L (3.5-5.1); Sodium 141 mmol/L (136-145)
[2021-03-10 05:52] LABS: Band 10 % (5-11); Eosinophils 6 % (0-10); Lymphocytes 17 % (21-51); MDiff Complete? YES; Metamyelocyte 2 % (0-0); Monocytes 5 % (0-10); Myelocyte 1 % (0-0); Neutrophil 58 % (42-75); Platelet Morphology Comment Appears Increased
[2021-03-10 06:02] LABS: Vancomycin, Trough 14.6 ug/mL
[2021-03-10] MEDS: Haloperidol Lactate 5 MG/ML VIAL SLOW IVP SCH ×4 (06:07→23:20)
[2021-03-10] MEDS: Vancomycin 1 GM in Premix Bag 1 BAG IVPB SCH ×4 (06:07→23:20)
[2021-03-10] MEDS ORDERED: Sterile Water 10 ML ONE (08:10)
[2021-03-10] MEDS: Ziprasidone 20 MG VIAL IM SCH (08:11)
[2021-03-10] MEDS: Pantoprazole 40 MG GRANULES PACKET PER TUBE SCH (08:12)
[2021-03-10] MEDS: Aspirin Chewable 81 MG TAB PO SCH (08:12)
[2021-03-10] MEDS: Polyethylene Glycol 3350 17 GM Packet PO SCH (08:12)
[2021-03-10] MEDS: Enoxaparin Sodium 40 MG/0.4 ML SYRINGE SC SCH ×2 (08:12→21:16)
[2021-03-10 08:21] LABS: Actual Bicarbonate (HCO3a) 35.9 mEq/L (22-28); Base Excess (BEa) 10.7 mEq/L (-2.0 to +3.0); CO2 Tension 50.4 mmHg (35.0-45.0); Calcium, Ionized (arterial) 1.11 mmol/L (1.12-1.30); Carboxyhemoglobin (COHb) 0.6 gm% (0.0-3.0); Hemoglobin (Hb) 12.5 g/dL (14.0-18.0); O2 Tension (PaO2), arterial 60.7 mmHg (80.0-100.0); Potassium - ABG Lab 3.46 mmol/L (3.70-5.30); pH, Arterial 7.47 (7.35-7.45)
[2021-03-10 08:24] LABS: Puncture Site RRA
[2021-03-10] MEDS ORDERED: Fentanyl CADD 100 ML ONE (09:05)
[2021-03-10] MEDS: Dexmedetomidine 1,000 MCG in Sodium Chloride 0.9% 250 ML 240 ML IVPB SCH ×2 (09:12→23:09)
[2021-03-10] MEDS: Fentanyl CADD 100 ML IV SCH (09:12)
[2021-03-10] MEDS: Senokot 8.6 MG TAB PER TUBE SCH ×2 (09:23→21:18)
[2021-03-10 12:53] LABS: Albumin 2.4 g/dL (3.5-5.0)
[2021-03-10 12:56] LABS: Globulin 4.1 g/dL (2.4-3.5); Protein, Total 6.5 g/dL (6.0-8.3)
[2021-03-10 12:58] LABS: Bilirubin, Total 0.3 mg/dL (0.2-1.2)
[2021-03-10 12:59] LABS: Alkaline Phosphatase 61 U/L (40-110)
[2021-03-10 13:01] LABS: AST (SGOT) 23 U/L (5-34)
[2021-03-10 13:02] LABS: ALT (SGPT) 16 U/L (8-55)
[2021-03-10] MEDS: Micafungin 100 MG in Sodium Chloride 0.9% 100 ML IVPB SCH (21:16)
[2021-03-11] MEDS: MEROPENEM 1 GM/50 ML 1 GM in Premix Bag 1 BAG IVPB SCH ×3 (01:13→17:56)
[2021-03-11] MEDS: Lorazepam 2 MG/ML VIAL SLOW IVP PRN ×5 (01:13→15:25)
[2021-03-11] MEDS: Norepinephrine 8 MG/0.9% NS 250 ML IVPB SCH ×2 (03:39→17:57)
[2021-03-11 04:20] LABS: Hemoglobin 8.8 g/dL (14.0-18.0); Mean Corpuscular Hemoglobin 30.1 pg (27.0-31.0); Mean Corpuscular Volume 94.1 fL (78.0-98.0); Mean Platelet Volume 6.4 fL (7.4-10.4); Platelet Count 609 thou/uL (130-400); RBC Distribution Width 12.7 % (11.5-14.5); Red Blood Cell (RBC) Count 2.92 mill/uL (4.70-6.10); White Blood Cell (WBC) Count 14.8 thou/uL (4.8-10.8)
[2021-03-11 04:45] LABS: BUN (Urea Nitrogen) 4 mg/dL (8.9-20.6); Calc. Creatinine Clearance 186 mL/min (70-130); Calcium 8.1 mg/dL (7.8-10.44); Carbon Dioxide 37 mmol/L (22-29); Chloride 97 mmol/L (98-107); Glucose 156 mg/dL (70-105); Potassium 3.6 mmol/L (3.5-5.1); Sodium 140 mmol/L (136-145)
[2021-03-11 05:02] LABS: Anion Gap 10 mmol/L (10-20)
[2021-03-11 05:11] LABS: Band 10 % (5-11); Lymphocytes 23 % (21-51); MDiff Complete? YES; Monocytes 4 % (0-10); Neutrophil 63 % (42-75)
[2021-03-11] MEDS: Haloperidol Lactate 5 MG/ML VIAL SLOW IVP SCH ×4 (05:41→23:52)
[2021-03-11] MEDS: Vancomycin 1 GM in Premix Bag 1 BAG IVPB SCH ×4 (05:41→23:52)
[2021-03-11] MEDS: Lactated Ringer's 1,000 ML IV SCH ×2 (05:46→19:46)
[2021-03-11 05:59] LABS: Vancomycin, Trough 10.3 ug/mL
[2021-03-11] MEDS ORDERED: Fentanyl CADD 100 ML ONE (07:07)
[2021-03-11] MEDS: Fentanyl CADD 100 ML IV SCH (07:18)
[2021-03-11 08:09] LABS: Actual Bicarbonate (HCO3a) 35.3 mEq/L (22-28); Base Excess (BEa) 10.2 mEq/L (-2.0 to +3.0); CO2 Tension 50.4 mmHg (35.0-45.0); Calcium, Ionized (arterial) 1.09 mmol/L (1.12-1.30); Carboxyhemoglobin (COHb) 0.8 gm% (0.0-3.0); Hemoglobin (Hb) 10.4 g/dL (14.0-18.0); O2 Tension (PaO2), arterial 72.7 mmHg (80.0-100.0); pH, Arterial 7.46 (7.35-7.45)
[2021-03-11 08:22] LABS: Puncture Site LRA
[2021-03-11] MEDS ORDERED: Lidocaine 1% w/Epinephrine 1:100K 20 ML VIAL ONE (08:53)
[2021-03-11] MEDS: Ziprasidone 20 MG VIAL IM SCH (10:05)
[2021-03-11] MEDS: Enoxaparin Sodium 40 MG/0.4 ML SYRINGE SC SCH ×2 (10:06→20:04)
[2021-03-11] MEDS: Pantoprazole 40 MG GRANULES PACKET PER TUBE SCH (10:07)
[2021-03-11] MEDS: Senokot 8.6 MG TAB PER TUBE SCH ×2 (10:07→20:04)
[2021-03-11] MEDS: Polyethylene Glycol 3350 17 GM Packet PO SCH (10:07)
[2021-03-11] MEDS: Aspirin Chewable 81 MG TAB PO SCH (10:07)
[2021-03-11] MEDS: Sterile Water 10 ML VIAL FS PRN (10:10)
[2021-03-11] MEDS: Dexmedetomidine 1,000 MCG in Sodium Chloride 0.9% 250 ML 240 ML IVPB SCH ×2 (11:50→23:52)
[2021-03-11] MEDS: Micafungin 100 MG in Sodium Chloride 0.9% 100 ML IVPB SCH (20:04)
[2021-03-11] MEDS: Acetaminophen 650 MG/20.3 ML UDCUP PER TUBE PRN (23:54)
[2021-03-12] MEDS: Lorazepam 2 MG/ML VIAL SLOW IVP PRN ×3 (02:25→23:25)
[2021-03-12] MEDS: MEROPENEM 1 GM/50 ML 1 GM in Premix Bag 1 BAG IVPB SCH ×4 (02:29→23:25)
[2021-03-12] MEDS ORDERED: Fentanyl CADD 100 ML ONE (03:50)
[2021-03-12] MEDS: Fentanyl CADD 100 ML IV SCH (03:54)
[2021-03-12 04:38] LABS: Anion Gap 13 mmol/L (10-20); BUN (Urea Nitrogen) 6 mg/dL (8.9-20.6); Calc. Creatinine Clearance 185 mL/min (70-130); Calcium 8.3 mg/dL (7.8-10.44); Carbon Dioxide 33 mmol/L (22-29); Chloride 99 mmol/L (98-107); Glucose 130 mg/dL (70-105); Potassium 3.8 mmol/L (3.5-5.1); Sodium 141 mmol/L (136-145)
[2021-03-12 04:40] LABS: Band 2 % (5-11); Eosinophils 1 % (0-10); Hemoglobin 9.4 g/dL (14.0-18.0); Hypochromia SLIGHT = 6-15 cells (100X) (0-5/hpf); Lymphocytes 10 % (21-51); MDiff Complete? YES; Mean Corpuscular HGB CONC 32.9 g/dL (32.0-36.0); Mean Corpuscular Volume 94.4 fL (78.0-98.0); Mean Platelet Volume 6.8 fL (7.4-10.4); Monocytes 19 % (0-10); Neutrophil 68 % (42-75); Platelet Count 592 thou/uL (130-400); Platelet Morphology Comment Appears Increased; Polychromasia SLIGHT = 2-3 cells (100X) (0-2/hpf); Red Blood Cell (RBC) Count 3.04 mill/uL (4.70-6.10); White Blood Cell (WBC) Count 16.9 thou/uL (4.8-10.8)
[2021-03-12] MEDS: Haloperidol Lactate 5 MG/ML VIAL SLOW IVP SCH ×4 (05:30→23:24)
[2021-03-12] MEDS: Vancomycin 1 GM in Premix Bag 1 BAG IVPB SCH ×4 (05:30→23:25)
[2021-03-12 07:56] LABS: pH, Arterial 7.43 (7.35-7.45)
[2021-03-12 07:57] LABS: Actual Bicarbonate (HCO3a) 35.1 mEq/L (22-28); Base Excess (BEa) 10.1 mEq/L (-2.0 to +3.0); CO2 Tension 50.4 mmHg (35.0-45.0); O2 Tension (PaO2), arterial 62.8 mmHg (80.0-100.0)
[2021-03-12 07:58] LABS: Hemoglobin (Hb) 11.1 g/dL (14.0-18.0); Puncture Site RRA
[2021-03-12] MEDS: Aspirin Chewable 81 MG TAB PO SCH (10:44)
[2021-03-12] MEDS: Sterile Water 10 ML VIAL FS PRN (10:45)
[2021-03-12] MEDS: Ziprasidone 20 MG VIAL IM SCH (10:45)
[2021-03-12] MEDS: Enoxaparin Sodium 40 MG/0.4 ML SYRINGE SC SCH ×2 (10:47→20:54)
[2021-03-12] MEDS: Pantoprazole 40 MG GRANULES PACKET PER TUBE SCH (10:47)
[2021-03-12] MEDS: Polyethylene Glycol 3350 17 GM Packet PO SCH (11:24)
[2021-03-12] MEDS: Senokot 8.6 MG TAB PER TUBE SCH ×2 (11:24→20:54)
[2021-03-12] MEDS: Dexmedetomidine 1,000 MCG in Sodium Chloride 0.9% 250 ML 240 ML IVPB SCH (15:04)
[2021-03-12] MEDS: Lactated Ringer's 1,000 ML IV SCH (15:04)
[2021-03-12] MEDS: Micafungin 100 MG in Sodium Chloride 0.9% 100 ML IVPB SCH (20:55)
[2021-03-13] MEDS: Dexmedetomidine 1,000 MCG in Sodium Chloride 0.9% 250 ML 240 ML IVPB SCH ×2 (02:42→17:16)
[2021-03-13] MEDS: Lactated Ringer's 1,000 ML IV SCH ×2 (02:42→17:59)
[2021-03-13 04:59] LABS: Anion Gap 10 mmol/L (10-20); BUN (Urea Nitrogen) 10 mg/dL (8.9-20.6); Calc. Creatinine Clearance 185 mL/min (70-130); Calcium 8.6 mg/dL (7.8-10.44); Carbon Dioxide 34 mmol/L (22-29); Chloride 101 mmol/L (98-107); Glucose 136 mg/dL (70-105); Sodium 141 mmol/L (136-145)
[2021-03-13 05:04] LABS: Hemoglobin 8.8 g/dL (14.0-18.0); Mean Corpuscular HGB CONC 33.5 g/dL (32.0-36.0); Mean Corpuscular Hemoglobin 31.8 pg (27.0-31.0); Mean Corpuscular Volume 95.1 fL (78.0-98.0); Mean Platelet Volume 7.2 fL (7.4-10.4); Platelet Count 536 thou/uL (130-400); RBC Distribution Width 13.8 % (11.5-14.5); Red Blood Cell (RBC) Count 2.78 mill/uL (4.70-6.10); White Blood Cell (WBC) Count 17.8 thou/uL (4.8-10.8)
[2021-03-13 05:21] LABS: Band 6 % (5-11); Eosinophils 8 % (0-10); Lymphocytes 14 % (21-51); Monocytes 6 % (0-10); Myelocyte 4 % (0-0); Neutrophil 58 % (42-75); Nucleated RBC 2 % (0); Reactive Lymphocytes 2 % (0-10)
[2021-03-13 05:22] LABS: Toxic Granulation SLIGHT
[2021-03-13 05:23] LABS: Differential Comment Immature Cell(s); Platelet Morphology Comment Appears Increased; Small Platelets SLIGHT
[2021-03-13] MEDS: Haloperidol Lactate 5 MG/ML VIAL SLOW IVP SCH ×4 (05:26→23:58)
[2021-03-13 05:30] LABS: MDiff Complete? YES
[2021-03-13 07:42] LABS: Actual Bicarbonate (HCO3a) 31.3 mEq/L (22-28); Base Excess (BEa) 6.6 mEq/L (-2.0 to +3.0); CO2 Tension 45.7 mmHg (35.0-45.0); Calcium, Ionized (arterial) 1.15 mmol/L (1.12-1.30); Carboxyhemoglobin (COHb) 0.2 gm% (0.0-3.0); Hemoglobin (Hb) 9.6 g/dL (14.0-18.0); Potassium - ABG Lab 3.43 mmol/L (3.70-5.30); pH, Arterial 7.45 (7.35-7.45)
[2021-03-13] MEDS: Senokot 8.6 MG TAB PER TUBE SCH ×2 (07:48→22:02)
[2021-03-13] MEDS: Polyethylene Glycol 3350 17 GM Packet PO SCH (07:48)
[2021-03-13] MEDS: Enoxaparin Sodium 40 MG/0.4 ML SYRINGE SC SCH ×2 (07:51→21:38)
[2021-03-13] MEDS: Pantoprazole 40 MG GRANULES PACKET PER TUBE SCH (07:51)
[2021-03-13] MEDS: Ziprasidone 20 MG VIAL IM SCH (07:51)
[2021-03-13] MEDS: Aspirin Chewable 81 MG TAB PO SCH (07:51)
[2021-03-13] MEDS: Lorazepam 2 MG/ML VIAL SLOW IVP PRN ×2 (08:42→17:28)
[2021-03-13 08:56] LABS: Puncture Site RRA
[2021-03-13 08:57] LABS: ALV-art Gradient 160.075 mmHg (0-20)
[2021-03-13] MEDS: MEROPENEM 1 GM/50 ML 1 GM in Premix Bag 1 BAG IVPB SCH ×2 (09:51→17:17)
[2021-03-13] MEDS: Norepinephrine 8 MG/0.9% NS 250 ML IVPB SCH (18:00)
[2021-03-13] MEDS: Micafungin 100 MG in Sodium Chloride 0.9% 100 ML IVPB SCH (21:38)
[2021-03-13] MEDS ORDERED: Fentanyl CADD 100 ML ONE (21:44)
[2021-03-13] MEDS: Fentanyl CADD 100 ML IV SCH (21:46)
[2021-03-14] MEDS: MEROPENEM 1 GM/50 ML 1 GM in Premix Bag 1 BAG IVPB SCH ×3 (02:48→17:37)
[2021-03-14] MEDS: Lorazepam 2 MG/ML VIAL SLOW IVP PRN ×4 (03:22→22:02)
[2021-03-14 04:10] LABS: Anion Gap 12 mmol/L (10-20); BUN (Urea Nitrogen) 14 mg/dL (8.9-20.6); Calc. Creatinine Clearance 173 mL/min (70-130); Calcium 9.2 mg/dL (7.8-10.44); Carbon Dioxide 33 mmol/L (22-29); Chloride 104 mmol/L (98-107); Glucose 134 mg/dL (70-105); Hemoglobin 9.2 g/dL (14.0-18.0); Mean Corpuscular HGB CONC 32.2 g/dL (32.0-36.0); Mean Corpuscular Hemoglobin 30.7 pg (27.0-31.0); Mean Corpuscular Volume 95.3 fL (78.0-98.0); Mean Platelet Volume 6.6 fL (7.4-10.4); Platelet Count 678 thou/uL (130-400); Potassium 4.4 mmol/L (3.5-5.1); RBC Distribution Width 14.3 % (11.5-14.5); Sodium 145 mmol/L (136-145); White Blood Cell (WBC) Count 20.5 thou/uL (4.8-10.8)
[2021-03-14 04:11] LABS: Band 2 % (5-11); Eosinophils 3 % (0-10); Hypochromia SLIGHT = 6-15 cells (100X) (0-5/hpf); Lymphocytes 21 % (21-51); MDiff Complete? YES; Monocytes 17 % (0-10); Neutrophil 57 % (42-75); Platelet Morphology Comment Appears Increased
[2021-03-14] MEDS: Dexmedetomidine 1,000 MCG in Sodium Chloride 0.9% 250 ML 240 ML IVPB SCH ×2 (05:53→20:21)
[2021-03-14] MEDS: Haloperidol Lactate 5 MG/ML VIAL SLOW IVP SCH ×3 (05:54→17:36)
[2021-03-14 07:35] LABS: Actual Bicarbonate (HCO3a) 32.9 mEq/L (22-28); Base Excess (BEa) 7.9 mEq/L (-2.0 to +3.0); CO2 Tension 47.6 mmHg (35.0-45.0); Carboxyhemoglobin (COHb) 0.9 gm% (0.0-3.0); Hemoglobin (Hb) 11.2 g/dL (14.0-18.0); O2 Tension (PaO2), arterial 94.5 mmHg (80.0-100.0); Potassium - ABG Lab 3.37 mmol/L (3.70-5.30); pH, Arterial 7.46 (7.35-7.45)
[2021-03-14 08:08] LABS: Puncture Site RRA
[2021-03-14] MEDS: Aspirin Chewable 81 MG TAB PO SCH (08:37)
[2021-03-14] MEDS: Sterile Water 10 ML VIAL FS PRN (08:37)
[2021-03-14] MEDS: Enoxaparin Sodium 40 MG/0.4 ML SYRINGE SC SCH ×2 (08:37→20:22)
[2021-03-14] MEDS: Ziprasidone 20 MG VIAL IM SCH (08:37)
[2021-03-14] MEDS: Pantoprazole 40 MG GRANULES PACKET PER TUBE SCH (08:37)
[2021-03-14] MEDS: Polyethylene Glycol 3350 17 GM Packet PO SCH (08:38)
[2021-03-14] MEDS: Senokot 8.6 MG TAB PER TUBE SCH ×2 (08:38→20:22)
[2021-03-14] MEDS: Lactated Ringer's 1,000 ML IV SCH (09:37)
[2021-03-14] MEDS ORDERED: Sodium Chloride 0.9% 500 ML IV SCH (21:30)
[2021-03-14] MEDS: Morphine 2 MG/ML VIAL SLOW IVP PRN (22:02)
[2021-03-15] MEDS: Haloperidol Lactate 5 MG/ML VIAL SLOW IVP SCH ×4 (00:11→17:21)
[2021-03-15 04:49] LABS: Band 3 % (5-11); Eosinophils 4 % (0-10); Hemoglobin 8.8 g/dL (14.0-18.0); Lymphocytes 15 % (21-51); MDiff Complete? YES; Mean Corpuscular HGB CONC 31.2 g/dL (32.0-36.0); Mean Corpuscular Hemoglobin 29.9 pg (27.0-31.0); Mean Platelet Volume 6.9 fL (7.4-10.4); Monocytes 6 % (0-10); Neutrophil 70 % (42-75); Platelet Count 600 thou/uL (130-400); Platelet Morphology Comment Appears Increased; Polychromasia SLIGHT = 2-3 cells (100X) (0-2/hpf); RBC Distribution Width 14.1 % (11.5-14.5); Reactive Lymphocytes 2 % (0-10); Red Blood Cell (RBC) Count 2.94 mill/uL (4.70-6.10); White Blood Cell (WBC) Count 17.2 thou/uL (4.8-10.8)
[2021-03-15 04:51] LABS: Anion Gap 11 mmol/L (10-20); BUN (Urea Nitrogen) 19 mg/dL (8.9-20.6); Calc. Creatinine Clearance 185 mL/min (70-130); Calcium 8.7 mg/dL (7.8-10.44); Carbon Dioxide 32 mmol/L (22-29); Chloride 103 mmol/L (98-107); Glucose 133 mg/dL (70-105); Sodium 142 mmol/L (136-145)
[2021-03-15] MEDS: Dexmedetomidine 1,000 MCG in Sodium Chloride 0.9% 250 ML 240 ML IVPB SCH ×2 (05:47→16:26)
[2021-03-15] MEDS ORDERED: Sterile Water 10 ML ONE (07:44)
[2021-03-15] MEDS: Enoxaparin Sodium 40 MG/0.4 ML SYRINGE SC SCH ×2 (08:12→20:59)
[2021-03-15] MEDS: Ziprasidone 20 MG VIAL IM SCH (08:12)
[2021-03-15] MEDS: Aspirin Chewable 81 MG TAB PO SCH (08:12)
[2021-03-15] MEDS: Senokot 8.6 MG TAB PER TUBE SCH ×2 (08:13→20:49)
[2021-03-15] MEDS: Polyethylene Glycol 3350 17 GM Packet PO SCH (08:13)
[2021-03-15] MEDS: Pantoprazole 40 MG GRANULES PACKET PER TUBE SCH (08:16)
[2021-03-15] MEDS: Lorazepam 2 MG/ML VIAL SLOW IVP PRN ×2 (09:34→21:00)
[2021-03-16] MEDS: Haloperidol Lactate 5 MG/ML VIAL SLOW IVP SCH ×4 (00:49→17:29)
[2021-03-16] MEDS: Lorazepam 2 MG/ML VIAL SLOW IVP PRN ×3 (02:04→20:13)
[2021-03-16] MEDS: Dexmedetomidine 1,000 MCG in Sodium Chloride 0.9% 250 ML 240 ML IVPB SCH ×2 (03:06→14:24)
[2021-03-16 04:32] LABS: Anion Gap 13 mmol/L (10-20); BUN (Urea Nitrogen) 20 mg/dL (8.9-20.6); Calc. Creatinine Clearance 175 mL/min (70-130); Calcium 9.2 mg/dL (7.8-10.44); Carbon Dioxide 31 mmol/L (22-29); Chloride 101 mmol/L (98-107); Glucose 132 mg/dL (70-105); Potassium 4.3 mmol/L (3.5-5.1); Sodium 141 mmol/L (136-145)
[2021-03-16 04:44] LABS: Band 1 % (5-11); Eosinophils 3 % (0-10); Hemoglobin 8.8 g/dL (14.0-18.0); Hypochromia SLIGHT = 6-15 cells (100X) (0-5/hpf); Lymphocytes 32 % (21-51); MDiff Complete? YES; Mean Corpuscular Hemoglobin 30.6 pg (27.0-31.0); Mean Corpuscular Volume 95.7 fL (78.0-98.0); Monocytes 9 % (0-10); Neutrophil 55 % (42-75); Platelet Count 541 thou/uL (130-400); Platelet Morphology Comment Appears Increased; RBC Distribution Width 14.4 % (11.5-14.5); Red Blood Cell (RBC) Count 2.89 mill/uL (4.70-6.10); White Blood Cell (WBC) Count 17.9 thou/uL (4.8-10.8)
[2021-03-16] MEDS ORDERED: Sterile Water 10 ML ONE (08:58)
[2021-03-16] MEDS: Aspirin Chewable 81 MG TAB PO SCH (09:24)
[2021-03-16] MEDS: Ziprasidone 20 MG VIAL IM SCH (09:24)
[2021-03-16] MEDS: Pantoprazole 40 MG GRANULES PACKET PER TUBE SCH (09:24)
[2021-03-16] MEDS: Enoxaparin Sodium 40 MG/0.4 ML SYRINGE SC SCH ×2 (09:24→20:12)
[2021-03-16] MEDS: Senokot 8.6 MG TAB PER TUBE SCH ×2 (09:25→20:13)
[2021-03-16] MEDS: Polyethylene Glycol 3350 17 GM Packet PO SCH (09:25)
[2021-03-16] MEDS: Midodrine HCl 5 MG TAB PO SCH ×2 (15:28→20:12)
[2021-03-17] MEDS: Haloperidol Lactate 5 MG/ML VIAL SLOW IVP SCH ×5 (00:10→17:26)
[2021-03-17] MEDS: Dexmedetomidine 1,000 MCG in Sodium Chloride 0.9% 250 ML 240 ML IVPB SCH ×2 (00:42→12:52)
[2021-03-17] MEDS: Lorazepam 2 MG/ML VIAL SLOW IVP PRN ×4 (02:12→21:33)
[2021-03-17 04:24] LABS: Hemoglobin 9.5 g/dL (14.0-18.0); Mean Corpuscular HGB CONC 33.5 g/dL (32.0-36.0); Mean Corpuscular Hemoglobin 31.8 pg (27.0-31.0); Mean Corpuscular Volume 94.9 fL (78.0-98.0); Platelet Count 554 thou/uL (130-400); RBC Distribution Width 13.9 % (11.5-14.5); Red Blood Cell (RBC) Count 2.98 mill/uL (4.70-6.10); White Blood Cell (WBC) Count 16.9 thou/uL (4.8-10.8)
[2021-03-17 04:31] LABS: Anion Gap 12 mmol/L (10-20); BUN (Urea Nitrogen) 17 mg/dL (8.9-20.6); Calc. Creatinine Clearance 159 mL/min (70-130); Calcium 9.3 mg/dL (7.8-10.44); Carbon Dioxide 29 mmol/L (22-29); Chloride 102 mmol/L (98-107); Glucose 141 mg/dL (70-105); Potassium 4.3 mmol/L (3.5-5.1); Sodium 139 mmol/L (136-145)
[2021-03-17 04:59] LABS: Band 5 % (5-11); Eosinophils 12 % (0-10); Lymphocytes 16 % (21-51); MDiff Complete? YES; Metamyelocyte 1 % (0-0); Monocytes 7 % (0-10); Myelocyte 1 % (0-0); Neutrophil 56 % (42-75); Platelet Morphology Comment Appears Increased; Polychromasia SLIGHT = 2-3 cells (100X) (0-2/hpf); Reactive Lymphocytes 2 % (0-10)
[2021-03-17] MEDS: Ziprasidone 20 MG VIAL IM SCH (08:40)
[2021-03-17] MEDS: Enoxaparin Sodium 40 MG/0.4 ML SYRINGE SC SCH ×2 (08:41→21:31)
[2021-03-17] MEDS: Aspirin Chewable 81 MG TAB PO SCH (08:41)
[2021-03-17] MEDS: Midodrine HCl 5 MG TAB PO SCH ×3 (08:41→21:31)
[2021-03-17] MEDS: Pantoprazole 40 MG GRANULES PACKET PER TUBE SCH (08:41)
[2021-03-17] MEDS: Senokot 8.6 MG TAB PER TUBE SCH ×2 (08:49→21:32)
[2021-03-17] MEDS: Polyethylene Glycol 3350 17 GM Packet PO SCH (08:49)
[2021-03-18] MEDS: Haloperidol Lactate 5 MG/ML VIAL SLOW IVP SCH ×4 (00:21→18:55)
[2021-03-18] MEDS: Dexmedetomidine 1,000 MCG in Sodium Chloride 0.9% 250 ML 240 ML IVPB SCH ×2 (00:21→11:29)
[2021-03-18 04:27] LABS: Band 2 % (5-11); Eosinophils 11 % (0-10); Hemoglobin 9.3 g/dL (14.0-18.0); Hypochromia SLIGHT = 6-15 cells (100X) (0-5/hpf); Lymphocytes 21 % (21-51); MDiff Complete? YES; Mean Corpuscular HGB CONC 31.9 g/dL (32.0-36.0); Mean Corpuscular Hemoglobin 30.7 pg (27.0-31.0); Mean Corpuscular Volume 96.2 fL (78.0-98.0); Monocytes 7 % (0-10); Neutrophil 59 % (42-75); Platelet Count 526 thou/uL (130-400); Platelet Morphology Comment Appears Increased; RBC Distribution Width 13.8 % (11.5-14.5); Red Blood Cell (RBC) Count 3.02 mill/uL (4.70-6.10); White Blood Cell (WBC) Count 15.1 thou/uL (4.8-10.8)
[2021-03-18 04:39] LABS: Anion Gap 12 mmol/L (10-20); BUN (Urea Nitrogen) 22 mg/dL (8.9-20.6); Calc. Creatinine Clearance 172 mL/min (70-130); Calcium 9.3 mg/dL (7.8-10.44); Carbon Dioxide 28 mmol/L (22-29); Chloride 103 mmol/L (98-107); Glucose 131 mg/dL (70-105); Sodium 139 mmol/L (136-145)
[2021-03-18] MEDS: Ziprasidone 20 MG VIAL IM SCH (08:36)
[2021-03-18] MEDS: Aspirin Chewable 81 MG TAB PO SCH (08:37)
[2021-03-18] MEDS: Sterile Water 10 ML VIAL FS PRN (08:37)
[2021-03-18] MEDS: Enoxaparin Sodium 40 MG/0.4 ML SYRINGE SC SCH ×2 (08:37→20:33)
[2021-03-18] MEDS: Polyethylene Glycol 3350 17 GM Packet PO SCH (08:38)
[2021-03-18] MEDS: Pantoprazole 40 MG GRANULES PACKET PER TUBE SCH (08:38)
[2021-03-18] MEDS: Senokot 8.6 MG TAB PER TUBE SCH ×2 (10:00→20:37)
[2021-03-18] MEDS: Midodrine HCl 5 MG TAB PO SCH ×3 (10:00→20:36)
[2021-03-18] MEDS: Lorazepam 2 MG/ML VIAL SLOW IVP PRN ×3 (13:22→20:33)
[2021-03-19] MEDS: Dexmedetomidine 1,000 MCG in Sodium Chloride 0.9% 250 ML 240 ML IVPB SCH ×3 (00:25→23:20)
[2021-03-19] MEDS: Haloperidol Lactate 5 MG/ML VIAL SLOW IVP SCH ×5 (00:26→23:24)
[2021-03-19 04:28] LABS: Anion Gap 11 mmol/L (10-20); BUN (Urea Nitrogen) 19 mg/dL (8.9-20.6); Calc. Creatinine Clearance 163 mL/min (70-130); Calcium 9.5 mg/dL (7.8-10.44); Carbon Dioxide 28 mmol/L (22-29); Chloride 103 mmol/L (98-107); Glucose 137 mg/dL (70-105); Sodium 138 mmol/L (136-145)
[2021-03-19 04:49] LABS: Hemoglobin 9.1 g/dL (14.0-18.0); Mean Corpuscular HGB CONC 32.4 g/dL (32.0-36.0); Mean Corpuscular Hemoglobin 30.6 pg (27.0-31.0); Mean Corpuscular Volume 94.5 fL (78.0-98.0); Mean Platelet Volume 7.3 fL (7.4-10.4); Platelet Count 502 thou/uL (130-400); RBC Distribution Width 13.5 % (11.5-14.5); Red Blood Cell (RBC) Count 2.96 mill/uL (4.70-6.10); White Blood Cell (WBC) Count 15.3 thou/uL (4.8-10.8)
[2021-03-19 05:12] LABS: Band 3 % (5-11); Eosinophils 15 % (0-10); Lymphocytes 19 % (21-51); MDiff Complete? YES; Monocytes 6 % (0-10); Myelocyte 2 % (0-0); Neutrophil 55 % (42-75); Platelet Morphology Comment Appears Increased
[2021-03-19] MEDS: Ziprasidone 20 MG VIAL IM SCH (09:24)
[2021-03-19] MEDS: Aspirin Chewable 81 MG TAB PO SCH (09:24)
[2021-03-19] MEDS: Lorazepam 2 MG/ML VIAL SLOW IVP PRN ×3 (09:24→23:59)
[2021-03-19] MEDS: Midodrine HCl 5 MG TAB PO SCH ×3 (09:24→21:52)
[2021-03-19] MEDS: Pantoprazole 40 MG GRANULES PACKET PER TUBE SCH (09:24)
[2021-03-19] MEDS: Enoxaparin Sodium 40 MG/0.4 ML SYRINGE SC SCH ×2 (09:25→21:41)
[2021-03-19] MEDS: Sterile Water 10 ML VIAL FS PRN (09:25)
[2021-03-19] MEDS: Senokot 8.6 MG TAB PER TUBE SCH ×2 (10:11→21:44)
[2021-03-19] MEDS: Polyethylene Glycol 3350 17 GM Packet PO SCH (10:11)
[2021-03-19] MEDS: ALPRAZolam 0.5 MG TAB PO SCH ×2 (14:43→21:41)
[2021-03-19] MEDS: Acetaminophen 650 MG/20.3 ML UDCUP PER TUBE PRN (14:44)
[2021-03-20] MEDS: Lorazepam 2 MG/ML VIAL SLOW IVP PRN ×2 (03:11→06:07)
[2021-03-20 05:31] LABS: Phosphorus 4.5 mg/dL (2.3-4.7)
[2021-03-20 05:34] LABS: Mean Corpuscular HGB CONC 32.1 g/dL (32.0-36.0); Mean Corpuscular Hemoglobin 30.2 pg (27.0-31.0); Mean Corpuscular Volume 94.2 fL (78.0-98.0); Mean Platelet Volume 7.3 fL (7.4-10.4); Platelet Count 463 thou/uL (130-400); RBC Distribution Width 13.4 % (11.5-14.5); Red Blood Cell (RBC) Count 2.96 mill/uL (4.70-6.10); White Blood Cell (WBC) Count 19.5 thou/uL (4.8-10.8)
[2021-03-20 05:44] LABS: ALT (SGPT) 15 U/L (8-55); AST (SGOT) 14 U/L (5-34); Albumin 3.1 g/dL (3.5-5.0); Alkaline Phosphatase 57 U/L (40-110); Anion Gap 13 mmol/L (10-20); BUN (Urea Nitrogen) 20 mg/dL (8.9-20.6); Bilirubin, Total 0.4 mg/dL (0.2-1.2); Calc. Creatinine Clearance 158 mL/min (70-130); Calcium 9.2 mg/dL (7.8-10.44); Carbon Dioxide 27 mmol/L (22-29); Chloride 103 mmol/L (98-107); Globulin 3.7 g/dL (2.4-3.5); Glucose 139 mg/dL (70-105); Magnesium 2.1 mg/dL (1.6-2.6); Potassium 4.1 mmol/L (3.5-5.1); Protein, Total 6.8 g/dL (6.0-8.3); Sodium 139 mmol/L (136-145)
[2021-03-20] MEDS: Haloperidol Lactate 5 MG/ML VIAL SLOW IVP SCH ×3 (05:56→18:36)
[2021-03-20 07:08] LABS: Band 5 % (5-11); Eosinophils 4 % (0-10); Lymphocytes 17 % (21-51); MDiff Complete? YES; Monocytes 1 % (0-10); Neutrophil 73 % (42-75)
[2021-03-20] MEDS: Aspirin Chewable 81 MG TAB PO SCH (10:29)
[2021-03-20] MEDS: ALPRAZolam 0.5 MG TAB PO SCH ×3 (10:29→20:44)
[2021-03-20] MEDS: Pantoprazole 40 MG GRANULES PACKET PER TUBE SCH (10:30)
[2021-03-20] MEDS: Enoxaparin Sodium 40 MG/0.4 ML SYRINGE SC SCH ×2 (10:30→20:44)
[2021-03-20] MEDS: Senokot 8.6 MG TAB PER TUBE SCH ×3 (10:32→20:53)
[2021-03-20] MEDS: Polyethylene Glycol 3350 17 GM Packet PO SCH (10:32)
[2021-03-20] MEDS: Midodrine HCl 5 MG TAB PO SCH ×3 (10:34→20:44)
[2021-03-21] MEDS: Haloperidol Lactate 5 MG/ML VIAL SLOW IVP SCH ×4 (00:17→17:41)
[2021-03-21 04:31] LABS: Phosphorus 4.5 mg/dL (2.3-4.7)
[2021-03-21 04:36] LABS: ALT (SGPT) 15 U/L (8-55); AST (SGOT) 14 U/L (5-34); Albumin 3.2 g/dL (3.5-5.0); Alkaline Phosphatase 62 U/L (40-110); Anion Gap 12 mmol/L (10-20); BUN (Urea Nitrogen) 14 mg/dL (8.9-20.6); Bilirubin, Total 0.4 mg/dL (0.2-1.2); Calc. Creatinine Clearance 163 mL/min (70-130); Calcium 9.2 mg/dL (7.8-10.44); Carbon Dioxide 29 mmol/L (22-29); Chloride 102 mmol/L (98-107); Globulin 3.6 g/dL (2.4-3.5); Glucose 143 mg/dL (70-105); Magnesium 2.1 mg/dL (1.6-2.6); Potassium 3.9 mmol/L (3.5-5.1); Protein, Total 6.8 g/dL (6.0-8.3); Sodium 139 mmol/L (136-145)
[2021-03-21 05:47] LABS: Band 5 % (5-11); Eosinophils 13 % (0-10); Hemoglobin 8.7 g/dL (14.0-18.0); Lymphocytes 9 % (21-51); MDiff Complete? YES; Mean Corpuscular HGB CONC 31.7 g/dL (32.0-36.0); Mean Corpuscular Hemoglobin 29.6 pg (27.0-31.0); Mean Corpuscular Volume 93.6 fL (78.0-98.0); Mean Platelet Volume 7.1 fL (7.4-10.4); Monocytes 6 % (0-10); Neutrophil 66 % (42-75); Platelet Count 470 thou/uL (130-400); Platelet Morphology Comment Appears Increased; RBC Distribution Width 13.3 % (11.5-14.5); Reactive Lymphocytes 1 % (0-10); Red Blood Cell (RBC) Count 2.93 mill/uL (4.70-6.10); White Blood Cell (WBC) Count 18.5 thou/uL (4.8-10.8)
[2021-03-21] MEDS: Lorazepam 2 MG/ML VIAL SLOW IVP PRN ×2 (06:16→12:25)
[2021-03-21] MEDS: Dexmedetomidine 1,000 MCG in Sodium Chloride 0.9% 250 ML 240 ML IVPB SCH (08:06)
[2021-03-21] MEDS: Enoxaparin Sodium 40 MG/0.4 ML SYRINGE SC SCH ×2 (09:27→20:59)
[2021-03-21] MEDS: Aspirin Chewable 81 MG TAB PO SCH (09:28)
[2021-03-21] MEDS: ALPRAZolam 0.5 MG TAB PO SCH ×3 (09:28→20:59)
[2021-03-21] MEDS: Pantoprazole 40 MG GRANULES PACKET PER TUBE SCH (09:28)
[2021-03-21] MEDS: Midodrine HCl 5 MG TAB PO SCH ×3 (09:51→20:59)
[2021-03-21] MEDS: Senokot 8.6 MG TAB PER TUBE SCH ×2 (10:53→20:59)
[2021-03-21] MEDS: Polyethylene Glycol 3350 17 GM Packet PO SCH (10:53)
[2021-03-21] MEDS: Acetaminophen 650 MG/20.3 ML UDCUP PER TUBE PRN (15:54)
[2021-03-22] MEDS: Haloperidol Lactate 5 MG/ML VIAL SLOW IVP SCH ×4 (00:24→16:41)
[2021-03-22] MEDS: Lorazepam 2 MG/ML VIAL SLOW IVP PRN ×5 (02:13→18:13)
[2021-03-22 05:00] LABS: Phosphorus 5.2 mg/dL (2.3-4.7)
[2021-03-22 05:01] LABS: ALT (SGPT) 20 U/L (8-55); AST (SGOT) 17 U/L (5-34); Albumin 3.1 g/dL (3.5-5.0); Alkaline Phosphatase 61 U/L (40-110); Anion Gap 9 mmol/L (10-20); BUN (Urea Nitrogen) 16 mg/dL (8.9-20.6); Bilirubin, Total 0.3 mg/dL (0.2-1.2); Calc. Creatinine Clearance 160 mL/min (70-130); Calcium 9.5 mg/dL (7.8-10.44); Carbon Dioxide 32 mmol/L (22-29); Chloride 102 mmol/L (98-107); Globulin 3.6 g/dL (2.4-3.5); Glucose 149 mg/dL (70-105); Magnesium 2.1 mg/dL (1.6-2.6); Potassium 4.2 mmol/L (3.5-5.1); Protein, Total 6.7 g/dL (6.0-8.3); Sodium 139 mmol/L (136-145)
[2021-03-22 05:44] LABS: Band 8 % (5-11); Eosinophils 14 % (0-10); Hemoglobin 8.5 g/dL (14.0-18.0); Lymphocytes 14 % (21-51); MDiff Complete? YES; Mean Corpuscular HGB CONC 31.6 g/dL (32.0-36.0); Mean Corpuscular Hemoglobin 29.6 pg (27.0-31.0); Mean Corpuscular Volume 93.7 fL (78.0-98.0); Mean Platelet Volume 7.2 fL (7.4-10.4); Monocytes 5 % (0-10); Neutrophil 59 % (42-75); Platelet Count 448 thou/uL (130-400); Red Blood Cell (RBC) Count 2.89 mill/uL (4.70-6.10); White Blood Cell (WBC) Count 16.1 thou/uL (4.8-10.8)
[2021-03-22] MEDS: Senokot 8.6 MG TAB PER TUBE SCH ×2 (08:11→20:04)
[2021-03-22] MEDS: Aspirin Chewable 81 MG TAB PO SCH (08:27)
[2021-03-22] MEDS: Folic Acid 1 MG TAB PER TUBE SCH (08:27)
[2021-03-22] MEDS: Pantoprazole 40 MG GRANULES PACKET PER TUBE SCH (08:28)
[2021-03-22] MEDS: Thiamine 100 MG TAB PER TUBE SCH (08:28)
[2021-03-22] MEDS: ALPRAZolam 0.5 MG TAB PO SCH (08:28)
[2021-03-22] MEDS: Polyethylene Glycol 3350 17 GM Packet PO SCH (08:29)
[2021-03-22] MEDS: Enoxaparin Sodium 40 MG/0.4 ML SYRINGE SC SCH ×2 (08:29→20:04)
[2021-03-22] MEDS: Midodrine HCl 5 MG TAB PO SCH ×4 (08:34→20:05)
[2021-03-22] MEDS: ALPRAZolam 1 MG TAB PO SCH ×3 (14:33→20:05)
[2021-03-22] MEDS ORDERED: ALPRAZolam 1 MG TAB PO SCH (15:30)
[2021-03-22] MEDS ORDERED: Midodrine HCl 5 MG TAB PO SCH (15:30)
[2021-03-22] MEDS: Dexmedetomidine 1,000 MCG in Sodium Chloride 0.9% 250 ML 240 ML IVPB SCH (18:13)
[2021-03-22] MEDS: Acetaminophen 650 MG/20.3 ML UDCUP PER TUBE PRN (20:04)
[2021-03-23] MEDS: Haloperidol Lactate 5 MG/ML VIAL SLOW IVP SCH ×4 (00:08→17:20)
[2021-03-23] MEDS: Lorazepam 2 MG/ML VIAL SLOW IVP PRN ×5 (04:21→16:10)
[2021-03-23] MEDS: Acetaminophen 650 MG/20.3 ML UDCUP PER TUBE PRN (04:50)
[2021-03-23] MEDS: Dexmedetomidine 1,000 MCG in Sodium Chloride 0.9% 250 ML 240 ML IVPB SCH ×2 (04:53→16:16)
[2021-03-23 04:55] LABS: Band 4 % (5-11); Eosinophils 14 % (0-10); Lymphocytes 9 % (21-51); MDiff Complete? YES; Mean Corpuscular HGB CONC 31.7 g/dL (32.0-36.0); Mean Corpuscular Hemoglobin 29.5 pg (27.0-31.0); Mean Corpuscular Volume 93.3 fL (78.0-98.0); Mean Platelet Volume 7.4 fL (7.4-10.4); Monocytes 13 % (0-10); Neutrophil 60 % (42-75); Platelet Count 462 thou/uL (130-400); Platelet Morphology Comment Appears Increased; Red Blood Cell (RBC) Count 3.04 mill/uL (4.70-6.10); White Blood Cell (WBC) Count 17.2 thou/uL (4.8-10.8)
[2021-03-23 05:01] LABS: Phosphorus 4.4 mg/dL (2.3-4.7)
[2021-03-23 05:06] LABS: ALT (SGPT) 27 U/L (8-55); AST (SGOT) 21 U/L (5-34); Albumin 3.2 g/dL (3.5-5.0); Alkaline Phosphatase 72 U/L (40-110); Anion Gap 15 mmol/L (10-20); BUN (Urea Nitrogen) 16 mg/dL (8.9-20.6); Bilirubin, Total 0.3 mg/dL (0.2-1.2); Calc. Creatinine Clearance 166 mL/min (70-130); Calcium 9.4 mg/dL (7.8-10.44); Carbon Dioxide 27 mmol/L (22-29); Chloride 102 mmol/L (98-107); Globulin 3.8 g/dL (2.4-3.5); Glucose 128 mg/dL (70-105); Sodium 140 mmol/L (136-145)
[2021-03-23] MEDS ORDERED: Magnesium 2 GM/50 ML 2 GM in Premix Bag 1 BAG IVPB SCH (07:00)
[2021-03-23] MEDS: ALPRAZolam 1 MG TAB PO SCH ×3 (07:54→20:47)
[2021-03-23] MEDS: Pantoprazole 40 MG GRANULES PACKET PER TUBE SCH (07:54)
[2021-03-23] MEDS: Thiamine 100 MG TAB PER TUBE SCH (07:54)
[2021-03-23] MEDS: Folic Acid 1 MG TAB PER TUBE SCH (07:54)
[2021-03-23] MEDS: Aspirin Chewable 81 MG TAB PO SCH (07:55)
[2021-03-23] MEDS: Senokot 8.6 MG TAB PER TUBE SCH ×2 (07:55→20:47)
[2021-03-23] MEDS: Enoxaparin Sodium 40 MG/0.4 ML SYRINGE SC SCH ×2 (07:55→20:46)
[2021-03-23] MEDS: Polyethylene Glycol 3350 17 GM Packet PO SCH (07:55)
[2021-03-23] MEDS: Midodrine HCl 5 MG TAB PO SCH ×3 (08:01→20:47)
[2021-03-23] MEDS: guaiFENesin/Codeine 200 mg/20 mg 10 ml Cup PO SCH ×3 (10:43→20:46)
[2021-03-23] MEDS: Morphine 4 MG/ML VIAL SLOW IVP PRN (16:11)
[2021-03-24] MEDS: Haloperidol Lactate 5 MG/ML VIAL SLOW IVP SCH ×4 (00:35→18:01)
[2021-03-24] MEDS: Dexmedetomidine 1,000 MCG in Sodium Chloride 0.9% 250 ML 240 ML IVPB SCH ×2 (00:36→15:12)
[2021-03-24] MEDS: guaiFENesin/Codeine 200 mg/20 mg 10 ml Cup PO SCH ×4 (04:22→22:47)
[2021-03-24 04:25] LABS: Anion Gap 13 mmol/L (10-20); BUN (Urea Nitrogen) 20 mg/dL (8.9-20.6); Calc. Creatinine Clearance 164 mL/min (70-130); Calcium 9.4 mg/dL (7.8-10.44); Carbon Dioxide 28 mmol/L (22-29); Chloride 102 mmol/L (98-107); Glucose 125 mg/dL (70-105); Potassium 4.4 mmol/L (3.5-5.1); Sodium 139 mmol/L (136-145)
[2021-03-24 05:04] LABS: Band 12 % (5-11); Eosinophils 10 % (0-10); Hemoglobin 8.7 g/dL (14.0-18.0); Lymphocytes 12 % (21-51); MDiff Complete? YES; Mean Corpuscular HGB CONC 31.3 g/dL (32.0-36.0); Mean Corpuscular Volume 92.6 fL (78.0-98.0); Mean Platelet Volume 6.9 fL (7.4-10.4); Monocytes 7 % (0-10); Neutrophil 58 % (42-75); Platelet Count 462 thou/uL (130-400); RBC Distribution Width 13.1 % (11.5-14.5); Red Blood Cell (RBC) Count 2.98 mill/uL (4.70-6.10); White Blood Cell (WBC) Count 16.9 thou/uL (4.8-10.8)
[2021-03-24] MEDS: Aspirin Chewable 81 MG TAB PO SCH (08:17)
[2021-03-24] MEDS: ALPRAZolam 1 MG TAB PO SCH ×3 (08:17→21:17)
[2021-03-24] MEDS: Thiamine 100 MG TAB PER TUBE SCH (08:17)
[2021-03-24] MEDS: Folic Acid 1 MG TAB PER TUBE SCH (08:17)
[2021-03-24] MEDS: Pantoprazole 40 MG GRANULES PACKET PER TUBE SCH (08:17)
[2021-03-24] MEDS: Enoxaparin Sodium 40 MG/0.4 ML SYRINGE SC SCH ×2 (08:18→21:18)
[2021-03-24] MEDS: Senokot 8.6 MG TAB PER TUBE SCH ×2 (08:18→21:18)
[2021-03-24] MEDS: Polyethylene Glycol 3350 17 GM Packet PO SCH (08:18)
[2021-03-24] MEDS: Midodrine HCl 5 MG TAB PO SCH ×3 (08:18→21:18)
[2021-03-24] MEDS: Guaifenesin DM 100-10/5 ML UDCUP PO PRN ×2 (11:08→21:24)
[2021-03-24] MEDS: Lorazepam 2 MG/ML VIAL SLOW IVP PRN (13:22)
[2021-03-24] MEDS: Morphine 4 MG/ML VIAL SLOW IVP PRN ×2 (14:54→21:18)
[2021-03-25] MEDS: Haloperidol Lactate 5 MG/ML VIAL SLOW IVP SCH ×5 (00:15→23:40)
[2021-03-25] MEDS: Lorazepam 2 MG/ML VIAL SLOW IVP PRN ×2 (02:01→04:36)
[2021-03-25 04:19] LABS: Hemoglobin 9.2 g/dL (14.0-18.0); Mean Corpuscular HGB CONC 32.5 g/dL (32.0-36.0); Mean Corpuscular Hemoglobin 29.7 pg (27.0-31.0); Mean Corpuscular Volume 91.3 fL (78.0-98.0); Mean Platelet Volume 7.1 fL (7.4-10.4); Platelet Count 432 thou/uL (130-400); RBC Distribution Width 13.1 % (11.5-14.5); Red Blood Cell (RBC) Count 3.09 mill/uL (4.70-6.10); White Blood Cell (WBC) Count 19.4 thou/uL (4.8-10.8)
[2021-03-25 04:35] LABS: Anion Gap 15 mmol/L (10-20); BUN (Urea Nitrogen) 18 mg/dL (8.9-20.6); Calc. Creatinine Clearance 170 mL/min (70-130); Calcium 9.2 mg/dL (7.8-10.44); Carbon Dioxide 27 mmol/L (22-29); Chloride 100 mmol/L (98-107); Glucose 134 mg/dL (70-105); Sodium 138 mmol/L (136-145)
[2021-03-25] MEDS: Dexmedetomidine 1,000 MCG in Sodium Chloride 0.9% 250 ML 240 ML IVPB SCH ×2 (04:35→15:29)
[2021-03-25] MEDS: guaiFENesin/Codeine 200 mg/20 mg 10 ml Cup PO SCH ×4 (04:35→21:34)
[2021-03-25 06:22] LABS: Band 11 % (5-11); Eosinophils 5 % (0-10); Lymphocytes 13 % (21-51); MDiff Complete? YES; Monocytes 6 % (0-10); Neutrophil 65 % (42-75)
[2021-03-25] MEDS: Midodrine HCl 5 MG TAB PO SCH ×3 (08:38→21:26)
[2021-03-25] MEDS: ALPRAZolam 1 MG TAB PO SCH ×3 (08:38→21:25)
[2021-03-25] MEDS: Thiamine 100 MG TAB PER TUBE SCH (08:38)
[2021-03-25] MEDS: Folic Acid 1 MG TAB PER TUBE SCH (08:38)
[2021-03-25] MEDS: Aspirin Chewable 81 MG TAB PO SCH (08:38)
[2021-03-25] MEDS: Enoxaparin Sodium 40 MG/0.4 ML SYRINGE SC SCH ×2 (08:39→21:25)
[2021-03-25] MEDS: Pantoprazole 40 MG GRANULES PACKET PER TUBE SCH (08:39)
[2021-03-25] MEDS: Senokot 8.6 MG TAB PER TUBE SCH ×2 (10:25→21:25)
[2021-03-25] MEDS: Polyethylene Glycol 3350 17 GM Packet PO SCH (10:25)
[2021-03-25] MEDS ORDERED: Cosyntropin 250 MCG VIAL SLOW IVP SCH (19:15)
[2021-03-26] MEDS: Dexmedetomidine 1,000 MCG in Sodium Chloride 0.9% 250 ML 240 ML IVPB SCH ×2 (02:19→12:47)
[2021-03-26] MEDS: guaiFENesin/Codeine 200 mg/20 mg 10 ml Cup PO SCH ×4 (02:49→21:21)
[2021-03-26 04:33] LABS: Anion Gap 14 mmol/L (10-20); BUN (Urea Nitrogen) 15 mg/dL (8.9-20.6); Calc. Creatinine Clearance 166 mL/min (70-130); Calcium 9.6 mg/dL (7.8-10.44); Carbon Dioxide 31 mmol/L (22-29); Chloride 100 mmol/L (98-107); Glucose 118 mg/dL (70-105); Potassium 4.2 mmol/L (3.5-5.1); Sodium 141 mmol/L (136-145)
[2021-03-26 05:00] LABS: Hemoglobin 8.5 g/dL (14.0-18.0); Mean Corpuscular Hemoglobin 29.6 pg (27.0-31.0); Mean Corpuscular Volume 92.6 fL (78.0-98.0); Mean Platelet Volume 6.7 fL (7.4-10.4); Platelet Count 420 thou/uL (130-400); RBC Distribution Width 13.1 % (11.5-14.5); Red Blood Cell (RBC) Count 2.86 mill/uL (4.70-6.10); White Blood Cell (WBC) Count 18.2 thou/uL (4.8-10.8)
[2021-03-26 05:01] LABS: Band 4 % (5-11); Eosinophils 6 % (0-10); Lymphocytes 18 % (21-51); MDiff Complete? YES; Monocytes 8 % (0-10); Neutrophil 62 % (42-75); Platelet Morphology Comment Appears Increased; RBC Morphology Normal; Reactive Lymphocytes 2 % (0-10)
[2021-03-26] MEDS: Haloperidol Lactate 5 MG/ML VIAL SLOW IVP SCH ×3 (05:55→17:26)
[2021-03-26] MEDS: ALPRAZolam 1 MG TAB PO SCH ×3 (08:44→21:22)
[2021-03-26] MEDS: Polyethylene Glycol 3350 17 GM Packet PO SCH (08:44)
[2021-03-26] MEDS: Aspirin Chewable 81 MG TAB PO SCH (08:44)
[2021-03-26] MEDS: Enoxaparin Sodium 40 MG/0.4 ML SYRINGE SC SCH ×2 (08:44→21:26)
[2021-03-26] MEDS: Folic Acid 1 MG TAB PER TUBE SCH (08:45)
[2021-03-26] MEDS: Pantoprazole 40 MG GRANULES PACKET PER TUBE SCH (08:45)
[2021-03-26] MEDS: Thiamine 100 MG TAB PER TUBE SCH (08:45)
[2021-03-26] MEDS: Senokot 8.6 MG TAB PER TUBE SCH ×2 (08:52→21:24)
[2021-03-26] MEDS: Midodrine HCl 5 MG TAB PO SCH ×3 (08:52→21:22)
[2021-03-26] MEDS: Lorazepam 2 MG/ML VIAL SLOW IVP PRN (13:34)
[2021-03-26] MEDS ORDERED: Lidocaine 1% w/Epinephrine 1:100K 20 ML VIAL ONE (13:44)
[2021-03-26] MEDS ORDERED: guaiFENesin/Codeine 200 mg/20 mg 10 ml Cup ONE (14:05)
[2021-03-26] MEDS: Morphine 4 MG/ML VIAL SLOW IVP PRN (14:08)
[2021-03-27] MEDS: Haloperidol Lactate 5 MG/ML VIAL SLOW IVP SCH ×5 (00:06→23:17)
[2021-03-27] MEDS: Dexmedetomidine 1,000 MCG in Sodium Chloride 0.9% 250 ML 240 ML IVPB SCH ×2 (00:06→15:50)
[2021-03-27] MEDS: Acetaminophen 650 MG/20.3 ML UDCUP PER TUBE PRN ×2 (00:59→20:04)
[2021-03-27 05:07] LABS: Anion Gap 11 mmol/L (10-20); BUN (Urea Nitrogen) 17 mg/dL (8.9-20.6); Calc. Creatinine Clearance 0 mL/min (70-130); Calcium 9.3 mg/dL (7.8-10.44); Carbon Dioxide 30 mmol/L (22-29); Chloride 101 mmol/L (98-107); Glucose 133 mg/dL (70-105); Potassium 3.8 mmol/L (3.5-5.1); Sodium 138 mmol/L (136-145)
[2021-03-27 05:11] LABS: Band 2 % (5-11); Eosinophils 14 % (0-10); Hemoglobin 8.3 g/dL (14.0-18.0); Lymphocytes 23 % (21-51); MDiff Complete? YES; Mean Corpuscular HGB CONC 32.2 g/dL (32.0-36.0); Mean Corpuscular Hemoglobin 29.9 pg (27.0-31.0); Mean Corpuscular Volume 92.8 fL (78.0-98.0); Mean Platelet Volume 7.2 fL (7.4-10.4); Monocytes 4 % (0-10); Neutrophil 57 % (42-75); Platelet Count 384 thou/uL (130-400); Platelet Morphology Comment Appears Adequate; Red Blood Cell (RBC) Count 2.77 mill/uL (4.70-6.10); White Blood Cell (WBC) Count 13.2 thou/uL (4.8-10.8)
[2021-03-27] MEDS: guaiFENesin/Codeine 200 mg/20 mg 10 ml Cup PO SCH ×4 (05:44→20:59)
[2021-03-27] MEDS: Enoxaparin Sodium 40 MG/0.4 ML SYRINGE SC SCH ×2 (09:11→20:06)
[2021-03-27] MEDS: Pantoprazole 40 MG GRANULES PACKET PER TUBE SCH (09:11)
[2021-03-27] MEDS: Midodrine HCl 5 MG TAB PO SCH ×3 (09:11→20:06)
[2021-03-27] MEDS: Folic Acid 1 MG TAB PER TUBE SCH (09:11)
[2021-03-27] MEDS: Aspirin Chewable 81 MG TAB PO SCH (09:11)
[2021-03-27] MEDS: ALPRAZolam 1 MG TAB PO SCH ×3 (09:11→20:08)
[2021-03-27] MEDS: Thiamine 100 MG TAB PER TUBE SCH (09:11)
[2021-03-27] MEDS: Lorazepam 2 MG/ML VIAL SLOW IVP PRN ×3 (10:31→20:34)
[2021-03-27] MEDS: Polyethylene Glycol 3350 17 GM Packet PO SCH (11:21)
[2021-03-27] MEDS: Senokot 8.6 MG TAB PER TUBE SCH ×2 (11:21→20:07)
[2021-03-27] MEDS ORDERED: Pharmacy to Dose VANCOMYCIN/MEROPENEM IVPB PRN (12:26)
[2021-03-27] MEDS ORDERED: MEROPENEM 1 GM/50 ML 1 GM in Premix Bag 1 BAG IVPB SCH (13:00)
[2021-03-27] MEDS ORDERED: Meropenem 2 GM in Admixture Fee 1 EACH IVPB SCH (14:00)
[2021-03-27] MEDS ORDERED: Vancomycin 1.5 GRAM/300 ML BAG 1.5 GM in Premix Bag 1 BAG IVPB SCH (16:00)
[2021-03-27] MEDS: MEROPENEM 1 GM/50 ML 1 GM in Premix Bag 1 BAG IVPB SCH (20:13)
[2021-03-27] MEDS ORDERED: Vancomycin 1 GM in Premix Bag 1 BAG IVPB SCH (21:00)
[2021-03-27] MEDS: Vancomycin 1 GM in Premix Bag 1 BAG IVPB SCH (23:16)
[2021-03-28] MEDS: guaiFENesin/Codeine 200 mg/20 mg 10 ml Cup PO SCH ×4 (03:32→21:48)
[2021-03-28 04:33] LABS: Hemoglobin 8.7 g/dL (14.0-18.0); Mean Corpuscular Hemoglobin 29.5 pg (27.0-31.0); Mean Corpuscular Volume 92.3 fL (78.0-98.0); Mean Platelet Volume 7.2 fL (7.4-10.4); Platelet Count 368 thou/uL (130-400); RBC Distribution Width 13.2 % (11.5-14.5); Red Blood Cell (RBC) Count 2.95 mill/uL (4.70-6.10); White Blood Cell (WBC) Count 12.3 thou/uL (4.8-10.8)
[2021-03-28 05:04] LABS: Band 2 % (5-11); Eosinophils 14 % (0-10); Lymphocytes 23 % (21-51); MDiff Complete? YES; Monocytes 2 % (0-10); Neutrophil 56 % (42-75); Platelet Morphology Comment Appears Adequate; RBC Morphology Normal; Reactive Lymphocytes 2 % (0-10)
[2021-03-28] MEDS: MEROPENEM 1 GM/50 ML 1 GM in Premix Bag 1 BAG IVPB SCH ×3 (05:39→21:53)
[2021-03-28] MEDS: Dexmedetomidine 1,000 MCG in Sodium Chloride 0.9% 250 ML 240 ML IVPB SCH ×2 (05:41→15:41)
[2021-03-28] MEDS: Haloperidol Lactate 5 MG/ML VIAL SLOW IVP SCH ×3 (05:42→17:16)
[2021-03-28] MEDS: Vancomycin 1 GM in Premix Bag 1 BAG IVPB SCH ×2 (08:23→15:41)
[2021-03-28] MEDS: Aspirin Chewable 81 MG TAB PO SCH (08:28)
[2021-03-28] MEDS: Pantoprazole 40 MG GRANULES PACKET PER TUBE SCH (08:28)
[2021-03-28] MEDS: Midodrine HCl 5 MG TAB PO SCH ×3 (08:28→21:49)
[2021-03-28] MEDS: Enoxaparin Sodium 40 MG/0.4 ML SYRINGE SC SCH ×2 (08:28→21:46)
[2021-03-28] MEDS: Polyethylene Glycol 3350 17 GM Packet PO SCH (08:28)
[2021-03-28] MEDS: Senokot 8.6 MG TAB PER TUBE SCH ×2 (08:28→21:48)
[2021-03-28] MEDS: Folic Acid 1 MG TAB PER TUBE SCH (08:29)
[2021-03-28] MEDS: ALPRAZolam 1 MG TAB PO SCH ×3 (08:29→21:50)
[2021-03-28] MEDS: Thiamine 100 MG TAB PER TUBE SCH (08:29)
[2021-03-28 10:47] LABS: Chloride 103 mmol/L (98-107); Potassium 4.4 mmol/L (3.5-5.1); Sodium 140 mmol/L (136-145)
[2021-03-28 10:48] LABS: Glucose 121 mg/dL (70-105)
[2021-03-28 10:49] LABS: Anion Gap 16 mmol/L (10-20); Carbon Dioxide 25 mmol/L (22-29)
[2021-03-28 10:51] LABS: Calc. Creatinine Clearance 168 mL/min (70-130)
[2021-03-28 10:52] LABS: BUN (Urea Nitrogen) 12 mg/dL (8.9-20.6)
[2021-03-28] MEDS: Lorazepam 2 MG/ML VIAL SLOW IVP PRN (13:20)
[2021-03-28 15:19] LABS: Vancomycin, Trough 15.5 ug/mL
[2021-03-29] MEDS: Vancomycin 1 GM in Premix Bag 1 BAG IVPB SCH ×3 (00:13→15:34)
[2021-03-29] MEDS: Haloperidol Lactate 5 MG/ML VIAL SLOW IVP SCH ×4 (00:13→17:10)
[2021-03-29] MEDS: guaiFENesin/Codeine 200 mg/20 mg 10 ml Cup PO SCH ×4 (04:25→21:19)
[2021-03-29 04:57] LABS: Band 4 % (5-11); Eosinophils 13 % (0-10); Hemoglobin 9.2 g/dL (14.0-18.0); Hypochromia SLIGHT = 6-15 cells (100X) (0-5/hpf); Lymphocytes 9 % (21-51); MDiff Complete? YES; Mean Corpuscular HGB CONC 32.7 g/dL (32.0-36.0); Mean Corpuscular Volume 91.8 fL (78.0-98.0); Mean Platelet Volume 7.4 fL (7.4-10.4); Monocytes 13 % (0-10); Neutrophil 61 % (42-75); Platelet Count 377 thou/uL (130-400); Platelet Morphology Comment Appears Adequate; RBC Distribution Width 13.3 % (11.5-14.5); Red Blood Cell (RBC) Count 3.06 mill/uL (4.70-6.10); White Blood Cell (WBC) Count 14.8 thou/uL (4.8-10.8)
[2021-03-29 05:10] LABS: Anion Gap 10 mmol/L (10-20); BUN (Urea Nitrogen) 11 mg/dL (8.9-20.6); Calc. Creatinine Clearance 156 mL/min (70-130); Calcium 9.4 mg/dL (7.8-10.44); Carbon Dioxide 33 mmol/L (22-29); Chloride 100 mmol/L (98-107); Glucose 140 mg/dL (70-105); Potassium 4.2 mmol/L (3.5-5.1); Sodium 139 mmol/L (136-145)
[2021-03-29] MEDS: MEROPENEM 1 GM/50 ML 1 GM in Premix Bag 1 BAG IVPB SCH ×3 (05:46→21:26)
[2021-03-29] MEDS: ALPRAZolam 1 MG TAB PO SCH ×3 (07:57→21:19)
[2021-03-29] MEDS: Lorazepam 2 MG/ML VIAL SLOW IVP PRN ×3 (07:57→23:04)
[2021-03-29] MEDS: Thiamine 100 MG TAB PER TUBE SCH (08:01)
[2021-03-29] MEDS: Enoxaparin Sodium 40 MG/0.4 ML SYRINGE SC SCH ×2 (08:01→21:18)
[2021-03-29] MEDS: Aspirin Chewable 81 MG TAB PO SCH (08:01)
[2021-03-29] MEDS: Pantoprazole 40 MG GRANULES PACKET PER TUBE SCH (08:01)
[2021-03-29] MEDS: Polyethylene Glycol 3350 17 GM Packet PO SCH (08:01)
[2021-03-29] MEDS: Folic Acid 1 MG TAB PER TUBE SCH (08:01)
[2021-03-29] MEDS: Senokot 8.6 MG TAB PER TUBE SCH ×2 (09:13→21:18)
[2021-03-29] MEDS: Dexmedetomidine 1,000 MCG in Sodium Chloride 0.9% 250 ML 240 ML IVPB SCH ×2 (09:13→22:38)
[2021-03-29] MEDS: Midodrine HCl 5 MG TAB PO SCH ×3 (10:12→21:26)
[2021-03-30] MEDS: Haloperidol Lactate 5 MG/ML VIAL SLOW IVP SCH ×4 (00:30→17:26)
[2021-03-30] MEDS: Vancomycin HCl 750 MG in Sodium Chloride 0.9% 250 ML 250 ML IVPB SCH ×3 (00:30→15:31)
[2021-03-30] MEDS: Lorazepam 2 MG/ML VIAL SLOW IVP PRN ×2 (03:35→16:28)
[2021-03-30] MEDS: guaiFENesin/Codeine 200 mg/20 mg 10 ml Cup PO SCH ×4 (04:11→21:11)
[2021-03-30 05:04] LABS: Anion Gap 14 mmol/L (10-20); BUN (Urea Nitrogen) 10 mg/dL (8.9-20.6); Calc. Creatinine Clearance 0 mL/min (70-130); Calcium 9.4 mg/dL (7.8-10.44); Carbon Dioxide 30 mmol/L (22-29); Chloride 99 mmol/L (98-107); Glucose 151 mg/dL (70-105); Potassium 4.1 mmol/L (3.5-5.1); Sodium 139 mmol/L (136-145)
[2021-03-30 05:10] LABS: Band 1 % (5-11); Eosinophils 21 % (0-10); Hemoglobin 9.1 g/dL (14.0-18.0); Lymphocytes 14 % (21-51); MDiff Complete? YES; Mean Corpuscular HGB CONC 33.6 g/dL (32.0-36.0); Mean Corpuscular Hemoglobin 30.7 pg (27.0-31.0); Mean Corpuscular Volume 91.1 fL (78.0-98.0); Mean Platelet Volume 6.6 fL (7.4-10.4); Metamyelocyte 1 % (0-0); Monocytes 3 % (0-10); Neutrophil 60 % (42-75); Platelet Count 380 thou/uL (130-400); Platelet Morphology Comment Appears Increased; RBC Distribution Width 13.2 % (11.5-14.5); RBC Morphology Normal; Red Blood Cell (RBC) Count 2.96 mill/uL (4.70-6.10); White Blood Cell (WBC) Count 13.3 thou/uL (4.8-10.8)
[2021-03-30] MEDS: MEROPENEM 1 GM/50 ML 1 GM in Premix Bag 1 BAG IVPB SCH ×3 (05:42→20:56)
[2021-03-30] MEDS: Enoxaparin Sodium 40 MG/0.4 ML SYRINGE SC SCH ×2 (08:51→20:56)
[2021-03-30] MEDS: Polyethylene Glycol 3350 17 GM Packet PO SCH (08:52)
[2021-03-30] MEDS: Midodrine HCl 5 MG TAB PO SCH ×3 (08:52→20:56)
[2021-03-30] MEDS: Aspirin Chewable 81 MG TAB PO SCH (08:52)
[2021-03-30] MEDS: Senokot 8.6 MG TAB PER TUBE SCH ×2 (08:52→20:56)
[2021-03-30] MEDS: Folic Acid 1 MG TAB PER TUBE SCH (08:52)
[2021-03-30] MEDS: Thiamine 100 MG TAB PER TUBE SCH (08:52)
[2021-03-30] MEDS: ALPRAZolam 1 MG TAB PO SCH ×3 (08:52→20:56)
[2021-03-30] MEDS: Pantoprazole 40 MG GRANULES PACKET PER TUBE SCH (08:52)
[2021-03-30] MEDS: Dexmedetomidine 1,000 MCG in Sodium Chloride 0.9% 250 ML 240 ML IVPB SCH (11:01)
[2021-03-30 23:15] LABS: Vancomycin, Trough 14.9 ug/mL
[2021-03-31] MEDS: Haloperidol Lactate 5 MG/ML VIAL SLOW IVP SCH ×5 (00:12→23:57)
[2021-03-31] MEDS: Vancomycin HCl 750 MG in Sodium Chloride 0.9% 250 ML 250 ML IVPB SCH ×4 (00:12→23:57)
[2021-03-31] MEDS: Dexmedetomidine 1,000 MCG in Sodium Chloride 0.9% 250 ML 240 ML IVPB SCH ×2 (01:13→14:04)
[2021-03-31] MEDS: guaiFENesin/Codeine 200 mg/20 mg 10 ml Cup PO SCH ×4 (03:30→21:22)
[2021-03-31 04:19] LABS: Band 4 % (5-11); Eosinophils 6 % (0-10); Hemoglobin 9.4 g/dL (14.0-18.0); Hypochromia SLIGHT = 6-15 cells (100X) (0-5/hpf); Lymphocytes 26 % (21-51); MDiff Complete? YES; Mean Corpuscular HGB CONC 34.2 g/dL (32.0-36.0); Mean Corpuscular Hemoglobin 30.9 pg (27.0-31.0); Mean Corpuscular Volume 90.4 fL (78.0-98.0); Mean Platelet Volume 6.9 fL (7.4-10.4); Monocytes 1 % (0-10); Neutrophil 63 % (42-75); Platelet Count 371 thou/uL (130-400); Platelet Morphology Comment Appears Adequate; RBC Distribution Width 13.1 % (11.5-14.5); Red Blood Cell (RBC) Count 3.04 mill/uL (4.70-6.10); White Blood Cell (WBC) Count 12.7 thou/uL (4.8-10.8)
[2021-03-31 04:26] LABS: Anion Gap 13 mmol/L (10-20); BUN (Urea Nitrogen) 12 mg/dL (8.9-20.6); Calc. Creatinine Clearance 158 mL/min (70-130); Calcium 9.7 mg/dL (7.8-10.44); Carbon Dioxide 29 mmol/L (22-29); Chloride 101 mmol/L (98-107); Glucose 127 mg/dL (70-105); Potassium 3.9 mmol/L (3.5-5.1); Sodium 139 mmol/L (136-145)
[2021-03-31] MEDS: Lorazepam 2 MG/ML VIAL SLOW IVP PRN ×2 (04:51→20:32)
[2021-03-31] MEDS: MEROPENEM 1 GM/50 ML 1 GM in Premix Bag 1 BAG IVPB SCH ×3 (04:53→21:22)
[2021-03-31] MEDS: Polyethylene Glycol 3350 17 GM Packet PO SCH (08:37)
[2021-03-31] MEDS: ALPRAZolam 1 MG TAB PO SCH ×3 (08:37→21:22)
[2021-03-31] MEDS: Midodrine HCl 5 MG TAB PO SCH ×3 (08:37→21:23)
[2021-03-31] MEDS: Aspirin Chewable 81 MG TAB PO SCH (08:37)
[2021-03-31] MEDS: Senokot 8.6 MG TAB PER TUBE SCH ×2 (08:37→21:22)
[2021-03-31] MEDS: Pantoprazole 40 MG GRANULES PACKET PER TUBE SCH (08:37)
[2021-03-31] MEDS: Folic Acid 1 MG TAB PER TUBE SCH (08:37)
[2021-03-31] MEDS: Thiamine 100 MG TAB PER TUBE SCH (08:37)
[2021-03-31] MEDS: fentaNYL 50 mcg/hour Patch TD SCH (08:38)
[2021-03-31] MEDS: Enoxaparin Sodium 40 MG/0.4 ML SYRINGE SC SCH ×2 (08:40→21:22)
[2021-04-01] MEDS: Lorazepam 2 MG/ML VIAL SLOW IVP PRN (03:47)
[2021-04-01] MEDS: guaiFENesin/Codeine 200 mg/20 mg 10 ml Cup PO SCH ×4 (03:47→20:53)
[2021-04-01 04:23] LABS: Anion Gap 11 mmol/L (10-20); BUN (Urea Nitrogen) 14 mg/dL (8.9-20.6); Calc. Creatinine Clearance 165 mL/min (70-130); Calcium 9.1 mg/dL (7.8-10.44); Carbon Dioxide 31 mmol/L (22-29); Chloride 101 mmol/L (98-107); Glucose 108 mg/dL (70-105); Sodium 139 mmol/L (136-145)
[2021-04-01] MEDS: Haloperidol Lactate 5 MG/ML VIAL SLOW IVP SCH ×3 (05:25→18:04)
[2021-04-01] MEDS: MEROPENEM 1 GM/50 ML 1 GM in Premix Bag 1 BAG IVPB SCH ×2 (05:25→14:04)
[2021-04-01] MEDS: Dexmedetomidine 1,000 MCG in Sodium Chloride 0.9% 250 ML 240 ML IVPB SCH ×2 (05:29→23:00)
[2021-04-01 05:43] LABS: Band 1 % (5-11); Eosinophils 9 % (0-10); Hemoglobin 8.7 g/dL (14.0-18.0); Lymphocytes 22 % (21-51); MDiff Complete? YES; Mean Corpuscular Hemoglobin 29.9 pg (27.0-31.0); Mean Corpuscular Volume 90.5 fL (78.0-98.0); Mean Platelet Volume 7.5 fL (7.4-10.4); Monocytes 7 % (0-10); Myelocyte 1 % (0-0); Neutrophil 58 % (42-75); Platelet Count 327 thou/uL (130-400); Platelet Morphology Comment Appears Adequate; RBC Distribution Width 13.2 % (11.5-14.5); RBC Morphology Normal; Reactive Lymphocytes 2 % (0-10); White Blood Cell (WBC) Count 12.5 thou/uL (4.8-10.8)
[2021-04-01] MEDS: Vancomycin HCl 750 MG in Sodium Chloride 0.9% 250 ML 250 ML IVPB SCH ×2 (07:58→16:38)
[2021-04-01] MEDS: ALPRAZolam 1 MG TAB PO SCH ×3 (08:00→20:05)
[2021-04-01] MEDS: Polyethylene Glycol 3350 17 GM Packet PO SCH (08:00)
[2021-04-01] MEDS: Midodrine HCl 5 MG TAB PO SCH ×3 (08:00→20:05)
[2021-04-01] MEDS: Senokot 8.6 MG TAB PER TUBE SCH ×2 (08:00→20:05)
[2021-04-01] MEDS: Enoxaparin Sodium 40 MG/0.4 ML SYRINGE SC SCH ×2 (08:00→20:05)
[2021-04-01] MEDS: Pantoprazole 40 MG GRANULES PACKET PER TUBE SCH (08:01)
[2021-04-01] MEDS: Folic Acid 1 MG TAB PER TUBE SCH (08:01)
[2021-04-01] MEDS: Aspirin Chewable 81 MG TAB PO SCH (08:01)
[2021-04-01] MEDS: Thiamine 100 MG TAB PER TUBE SCH (08:01)
[2021-04-01] MEDS: Meropenem 1 GM in Sodium Chloride 0.9% 100 ML IVPB SCH (20:08)
[2021-04-02] MEDS: Haloperidol Lactate 5 MG/ML VIAL SLOW IVP SCH ×5 (00:35→23:41)
[2021-04-02] MEDS: Vancomycin HCl 750 MG in Sodium Chloride 0.9% 250 ML 250 ML IVPB SCH ×4 (00:35→23:41)
[2021-04-02] MEDS: Lorazepam 2 MG/ML VIAL SLOW IVP PRN ×2 (02:14→19:55)
[2021-04-02] MEDS: guaiFENesin/Codeine 200 mg/20 mg 10 ml Cup PO SCH ×4 (03:47→21:57)
[2021-04-02 04:50] LABS: Anion Gap 11 mmol/L (10-20); BUN (Urea Nitrogen) 13 mg/dL (8.9-20.6); Calc. Creatinine Clearance 159 mL/min (70-130); Calcium 9.4 mg/dL (7.8-10.44); Carbon Dioxide 34 mmol/L (22-29); Chloride 96 mmol/L (98-107); Glucose 132 mg/dL (70-105); Potassium 4.3 mmol/L (3.5-5.1); Sodium 137 mmol/L (136-145)
[2021-04-02] MEDS: Meropenem 1 GM in Sodium Chloride 0.9% 100 ML IVPB SCH ×2 (05:40→13:38)
[2021-04-02 06:32] LABS: Band 5 % (5-11); Eosinophils 21 % (0-10); Hemoglobin 8.9 g/dL (14.0-18.0); Lymphocytes 24 % (21-51); MDiff Complete? YES; Mean Corpuscular HGB CONC 33.9 g/dL (32.0-36.0); Mean Corpuscular Hemoglobin 30.6 pg (27.0-31.0); Mean Corpuscular Volume 90.3 fL (78.0-98.0); Mean Platelet Volume 6.4 fL (7.4-10.4); Monocytes 4 % (0-10); Neutrophil 46 % (42-75); Platelet Count 303 thou/uL (130-400); RBC Distribution Width 13.3 % (11.5-14.5); Red Blood Cell (RBC) Count 2.92 mill/uL (4.70-6.10); White Blood Cell (WBC) Count 11.2 thou/uL (4.8-10.8)
[2021-04-02] MEDS: Polyethylene Glycol 3350 17 GM Packet PO SCH (08:46)
[2021-04-02] MEDS: Senokot 8.6 MG TAB PER TUBE SCH ×2 (08:46→21:03)
[2021-04-02] MEDS: Enoxaparin Sodium 40 MG/0.4 ML SYRINGE SC SCH ×2 (08:47→21:03)
[2021-04-02] MEDS: Pantoprazole 40 MG GRANULES PACKET PER TUBE SCH (08:47)
[2021-04-02] MEDS: Aspirin Chewable 81 MG TAB PO SCH (08:47)
[2021-04-02] MEDS: Midodrine HCl 5 MG TAB PO SCH ×3 (08:47→21:03)
[2021-04-02] MEDS: Folic Acid 1 MG TAB PER TUBE SCH (08:47)
[2021-04-02] MEDS: ALPRAZolam 1 MG TAB PO SCH ×3 (08:47→21:02)
[2021-04-02] MEDS: Thiamine 100 MG TAB PER TUBE SCH (08:47)
[2021-04-02] MEDS: Dexmedetomidine 1,000 MCG in Sodium Chloride 0.9% 250 ML 240 ML IVPB SCH (13:21)
[2021-04-02] MEDS ORDERED: MEROPENEM 1 GM/50 ML 1 GM in Premix Bag 1 BAG IVPB SCH ×2 (16:00→21:00)
[2021-04-03] MEDS: guaiFENesin/Codeine 200 mg/20 mg 10 ml Cup PO SCH ×4 (04:13→20:54)
[2021-04-03] MEDS: Lorazepam 2 MG/ML VIAL SLOW IVP PRN (04:23)
[2021-04-03] MEDS: Dexmedetomidine 1,000 MCG in Sodium Chloride 0.9% 250 ML 240 ML IVPB SCH ×2 (04:44→18:32)
[2021-04-03 05:03] LABS: Hemoglobin 9.1 g/dL (14.0-18.0); Mean Corpuscular HGB CONC 33.8 g/dL (32.0-36.0); Mean Corpuscular Hemoglobin 30.3 pg (27.0-31.0); Mean Corpuscular Volume 89.7 fL (78.0-98.0); Mean Platelet Volume 6.4 fL (7.4-10.4); Platelet Count 288 thou/uL (130-400); RBC Distribution Width 13.1 % (11.5-14.5); White Blood Cell (WBC) Count 13.4 thou/uL (4.8-10.8)
[2021-04-03 05:26] LABS: Band 2 % (5-11); Eosinophils 13 % (0-10); Lymphocytes 17 % (21-51); MDiff Complete? YES; Monocytes 3 % (0-10); Neutrophil 65 % (42-75)
[2021-04-03] MEDS: Haloperidol Lactate 5 MG/ML VIAL SLOW IVP SCH ×3 (05:55→18:33)
[2021-04-03 06:02] LABS: Calcium 9.4 mg/dL (7.8-10.44); Chloride 97 mmol/L (98-107); Potassium 4.2 mmol/L (3.5-5.1); Sodium 137 mmol/L (136-145)
[2021-04-03 06:03] LABS: Glucose 134 mg/dL (70-105)
[2021-04-03 06:04] LABS: Carbon Dioxide 30 mmol/L (22-29)
[2021-04-03 06:06] LABS: Calc. Creatinine Clearance 172 mL/min (70-130)
[2021-04-03 06:07] LABS: BUN (Urea Nitrogen) 10 mg/dL (8.9-20.6)
[2021-04-03 06:14] LABS: Anion Gap 14 mmol/L (10-20)
[2021-04-03] MEDS: ALPRAZolam 1 MG TAB PO SCH ×3 (09:47→20:54)
[2021-04-03] MEDS: Aspirin Chewable 81 MG TAB PO SCH (09:50)
[2021-04-03] MEDS: Enoxaparin Sodium 40 MG/0.4 ML SYRINGE SC SCH ×2 (09:50→20:54)
[2021-04-03] MEDS: Folic Acid 1 MG TAB PER TUBE SCH (09:54)
[2021-04-03] MEDS: Midodrine HCl 5 MG TAB PO SCH ×3 (09:54→20:54)
[2021-04-03] MEDS: Pantoprazole 40 MG GRANULES PACKET PER TUBE SCH (09:55)
[2021-04-03] MEDS: Senokot 8.6 MG TAB PER TUBE SCH ×2 (09:56→20:54)
[2021-04-03] MEDS: Polyethylene Glycol 3350 17 GM Packet PO SCH (09:56)
[2021-04-03] MEDS: Thiamine 100 MG TAB PER TUBE SCH (09:57)
[2021-04-03] MEDS: fentaNYL 50 mcg/hour Patch TD SCH (10:02)
[2021-04-03] MEDS: Acetaminophen 650 MG/20.3 ML UDCUP PER TUBE PRN (12:55)
[2021-04-03] MEDS: Ondansetron PF 4 MG/2 ML Vial IVP PRN (16:23)
[2021-04-03 22:40] LABS: Vancomycin, Trough 4.1 ug/mL
[2021-04-04] MEDS: Haloperidol Lactate 5 MG/ML VIAL SLOW IVP SCH ×5 (00:58→23:47)
[2021-04-04] MEDS: guaiFENesin/Codeine 200 mg/20 mg 10 ml Cup PO SCH ×4 (04:00→21:20)
[2021-04-04 04:05] LABS: Hemoglobin 9.2 g/dL (14.0-18.0); Mean Corpuscular HGB CONC 35.3 g/dL (32.0-36.0); Mean Corpuscular Hemoglobin 31.2 pg (27.0-31.0); Mean Corpuscular Volume 88.4 fL (78.0-98.0); Mean Platelet Volume 7.7 fL (7.4-10.4); Platelet Count 307 thou/uL (130-400); RBC Distribution Width 12.9 % (11.5-14.5); Red Blood Cell (RBC) Count 2.95 mill/uL (4.70-6.10); White Blood Cell (WBC) Count 13.3 thou/uL (4.8-10.8)
[2021-04-04 04:20] LABS: Anion Gap 13 mmol/L (10-20); BUN (Urea Nitrogen) 13 mg/dL (8.9-20.6); Calc. Creatinine Clearance 166 mL/min (70-130); Calcium 9.7 mg/dL (7.8-10.44); Carbon Dioxide 31 mmol/L (22-29); Chloride 95 mmol/L (98-107); Glucose 127 mg/dL (70-105); Potassium 4.1 mmol/L (3.5-5.1); Sodium 135 mmol/L (136-145)
[2021-04-04 05:07] LABS: Band 6 % (5-11); Eosinophils 9 % (0-10); Lymphocytes 23 % (21-51); MDiff Complete? YES; Monocytes 10 % (0-10); Neutrophil 52 % (42-75)
[2021-04-04] MEDS: Dexmedetomidine 1,000 MCG in Sodium Chloride 0.9% 250 ML 240 ML IVPB SCH (05:38)
[2021-04-04] MEDS: Ondansetron PF 4 MG/2 ML Vial IVP PRN (07:30)
[2021-04-04] MEDS: Folic Acid 1 MG TAB PER TUBE SCH (10:01)
[2021-04-04] MEDS: Midodrine HCl 5 MG TAB PO SCH ×3 (10:02→21:20)
[2021-04-04] MEDS: Thiamine 100 MG TAB PER TUBE SCH (10:03)
[2021-04-04] MEDS: Pantoprazole 40 MG GRANULES PACKET PER TUBE SCH (10:03)
[2021-04-04] MEDS: Polyethylene Glycol 3350 17 GM Packet PO SCH (10:03)
[2021-04-04] MEDS: Enoxaparin Sodium 40 MG/0.4 ML SYRINGE SC SCH ×2 (10:03→21:20)
[2021-04-04] MEDS: Aspirin Chewable 81 MG TAB PO SCH (10:03)
[2021-04-04] MEDS: Senokot 8.6 MG TAB PER TUBE SCH ×2 (10:16→21:20)
[2021-04-04] MEDS ORDERED: ALPRAZolam 1 MG TAB PO SCH (10:30)
[2021-04-04] MEDS: ALPRAZolam 1 MG TAB PO SCH ×3 (10:34→21:20)
[2021-04-04] MEDS ORDERED: Promethazine HCl 25 MG in Sodium Chloride 0.9% 50 ML IVPB PRN (17:53)
[2021-04-04] MEDS ORDERED: Escitalopram Oxalate 10 mg Tablet PER TUBE SCH (18:00)
[2021-04-05] MEDS: guaiFENesin/Codeine 200 mg/20 mg 10 ml Cup PO SCH ×4 (04:18→21:40)
[2021-04-05] MEDS: Haloperidol Lactate 5 MG/ML VIAL SLOW IVP SCH ×3 (05:51→17:06)
[2021-04-05] MEDS: Dexmedetomidine 1,000 MCG in Sodium Chloride 0.9% 250 ML 240 ML IVPB SCH (09:14)
[2021-04-05] MEDS: Aspirin Chewable 81 MG TAB PO SCH (09:15)
[2021-04-05] MEDS: ALPRAZolam 1 MG TAB PO SCH ×3 (09:15→21:39)
[2021-04-05] MEDS: Pantoprazole 40 MG GRANULES PACKET PER TUBE SCH (09:15)
[2021-04-05] MEDS: Enoxaparin Sodium 40 MG/0.4 ML SYRINGE SC SCH ×2 (09:15→21:40)
[2021-04-05] MEDS: Midodrine HCl 5 MG TAB PO SCH ×3 (09:15→21:39)
[2021-04-05] MEDS: Thiamine 100 MG TAB PER TUBE SCH (09:15)
[2021-04-05] MEDS: Folic Acid 1 MG TAB PER TUBE SCH (09:16)
[2021-04-05] MEDS: Senokot 8.6 MG TAB PER TUBE SCH ×2 (09:16→21:39)
[2021-04-05] MEDS: Polyethylene Glycol 3350 17 GM Packet PO SCH (09:16)
[2021-04-05] MEDS: Escitalopram Oxalate 10 mg Tablet PER TUBE SCH (09:16)
[2021-04-06] MEDS: Haloperidol Lactate 5 MG/ML VIAL SLOW IVP SCH ×4 (00:43→16:53)
[2021-04-06] MEDS: Dexmedetomidine 1,000 MCG in Sodium Chloride 0.9% 250 ML 240 ML IVPB SCH (02:26)
[2021-04-06] MEDS: Lorazepam 2 MG/ML VIAL SLOW IVP PRN (02:32)
[2021-04-06] MEDS: guaiFENesin/Codeine 200 mg/20 mg 10 ml Cup PO SCH ×4 (03:55→20:47)
[2021-04-06 04:07] LABS: Anion Gap 13 mmol/L (10-20); BUN (Urea Nitrogen) 11 mg/dL (8.9-20.6); Calc. Creatinine Clearance 186 mL/min (70-130); Calcium 9.7 mg/dL (7.8-10.44); Carbon Dioxide 31 mmol/L (22-29); Chloride 97 mmol/L (98-107); Glucose 114 mg/dL (70-105); Potassium 4.2 mmol/L (3.5-5.1); Sodium 137 mmol/L (136-145)
[2021-04-06 04:27] LABS: Band 8 % (5-11); Eosinophils 5 % (0-10); Hemoglobin 9.1 g/dL (14.0-18.0); Lymphocytes 26 % (21-51); MDiff Complete? YES; Mean Corpuscular HGB CONC 32.9 g/dL (32.0-36.0); Mean Corpuscular Hemoglobin 29.1 pg (27.0-31.0); Mean Corpuscular Volume 88.6 fL (78.0-98.0); Mean Platelet Volume 7.2 fL (7.4-10.4); Monocytes 9 % (0-10); Neutrophil 52 % (42-75); Platelet Count 323 thou/uL (130-400); RBC Distribution Width 12.8 % (11.5-14.5); Red Blood Cell (RBC) Count 3.11 mill/uL (4.70-6.10); White Blood Cell (WBC) Count 10.1 thou/uL (4.8-10.8)
[2021-04-06] MEDS: Enoxaparin Sodium 40 MG/0.4 ML SYRINGE SC SCH ×2 (08:32→20:47)
[2021-04-06] MEDS: fentaNYL 50 mcg/hour Patch TD SCH (08:33)
[2021-04-06] MEDS: Polyethylene Glycol 3350 17 GM Packet PO SCH (08:33)
[2021-04-06] MEDS: Senokot 8.6 MG TAB PER TUBE SCH ×2 (08:35→20:47)
[2021-04-06] MEDS: Pantoprazole 40 MG GRANULES PACKET PER TUBE SCH (08:35)
[2021-04-06] MEDS: Aspirin Chewable 81 MG TAB PO SCH (08:35)
[2021-04-06] MEDS: Thiamine 100 MG TAB PER TUBE SCH (08:35)
[2021-04-06] MEDS: Midodrine HCl 5 MG TAB PO SCH ×3 (08:35→20:47)
[2021-04-06] MEDS: ALPRAZolam 1 MG TAB PO SCH ×3 (08:35→20:47)
[2021-04-06] MEDS: Escitalopram Oxalate 10 mg Tablet PER TUBE SCH (08:35)
[2021-04-06] MEDS: Folic Acid 1 MG TAB PER TUBE SCH (08:35)
[2021-04-07] MEDS: Haloperidol Lactate 5 MG/ML VIAL SLOW IVP SCH ×4 (00:48→18:18)
[2021-04-07] MEDS: Dexmedetomidine 1,000 MCG in Sodium Chloride 0.9% 250 ML 240 ML IVPB SCH (03:30)
[2021-04-07] MEDS: guaiFENesin/Codeine 200 mg/20 mg 10 ml Cup PO SCH ×4 (03:55→21:15)
[2021-04-07 04:37] LABS: #Eosinphils 0.7 thou/uL (0.0-0.7); #Lymphocytes 2.8 thou/uL (1.20-3.40); #Monocytes 1.3 thou/uL (0.11-0.59); #Neutrophils 7.8 thou/uL (1.40-6.50); %Basophils 0.2 % (0.0-1.0); %Eosinophils 5.5 % (0.0-10.0); %Lymphocytes 22.1 % (21.0-51.0); %Monocytes 9.9 % (0.0-10.0); %Neutrophils 62.2 % (42.0-75.0); Hemoglobin 8.7 g/dL (14.0-18.0); Mean Corpuscular HGB CONC 33.5 g/dL (32.0-36.0); Mean Corpuscular Hemoglobin 29.8 pg (27.0-31.0); Mean Corpuscular Volume 88.8 fL (78.0-98.0); Mean Platelet Volume 7.2 fL (7.4-10.4); Platelet Count 357 thou/uL (130-400); RBC Distribution Width 13.1 % (11.5-14.5); Red Blood Cell (RBC) Count 2.91 mill/uL (4.70-6.10); White Blood Cell (WBC) Count 12.6 thou/uL (4.8-10.8)
[2021-04-07 05:09] LABS: ALT (SGPT) 16 U/L (8-55); AST (SGOT) 10 U/L (5-34); Alkaline Phosphatase 60 U/L (40-110); Anion Gap 14 mmol/L (10-20); BUN (Urea Nitrogen) 15 mg/dL (8.9-20.6); Bilirubin, Total 0.2 mg/dL (0.2-1.2); Calc. Creatinine Clearance 0 mL/min (70-130); Calcium 9.7 mg/dL (7.8-10.44); Carbon Dioxide 31 mmol/L (22-29); Chloride 97 mmol/L (98-107); Globulin 3.9 g/dL (2.4-3.5); Glucose 121 mg/dL (70-105); Magnesium 1.6 mg/dL (1.6-2.6); Phosphorus 5.1 mg/dL (2.3-4.7); Potassium 4.3 mmol/L (3.5-5.1); Protein, Total 6.9 g/dL (6.0-8.3); Sodium 138 mmol/L (136-145)
[2021-04-07] MEDS ORDERED: Magnesium 2 GM/50 ML 2 GM in Premix Bag 1 BAG IVPB SCH (07:00)
[2021-04-07] MEDS: Pantoprazole 40 MG GRANULES PACKET PER TUBE SCH (09:13)
[2021-04-07] MEDS: Midodrine HCl 5 MG TAB PO SCH ×3 (09:13→21:15)
[2021-04-07] MEDS: Escitalopram Oxalate 10 mg Tablet PER TUBE SCH (09:13)
[2021-04-07] MEDS: Thiamine 100 MG TAB PER TUBE SCH (09:13)
[2021-04-07] MEDS: Folic Acid 1 MG TAB PER TUBE SCH (09:13)
[2021-04-07] MEDS: Aspirin Chewable 81 MG TAB PO SCH (09:13)
[2021-04-07] MEDS: ALPRAZolam 1 MG TAB PO SCH ×3 (09:13→21:15)
[2021-04-07] MEDS: Senokot 8.6 MG TAB PER TUBE SCH ×2 (09:14→21:06)
[2021-04-07] MEDS: Enoxaparin Sodium 40 MG/0.4 ML SYRINGE SC SCH ×2 (09:14→21:15)
[2021-04-07] MEDS: Polyethylene Glycol 3350 17 GM Packet PO SCH (09:14)
[2021-04-08] MEDS: Haloperidol Lactate 5 MG/ML VIAL SLOW IVP SCH ×3 (00:10→12:08)
[2021-04-08] MEDS: guaiFENesin/Codeine 200 mg/20 mg 10 ml Cup PO SCH ×4 (03:51→20:44)
[2021-04-08 04:13] LABS: Hemoglobin 8.6 g/dL (14.0-18.0); Mean Corpuscular HGB CONC 33.5 g/dL (32.0-36.0); Mean Corpuscular Hemoglobin 29.8 pg (27.0-31.0); Mean Corpuscular Volume 88.8 fL (78.0-98.0); Mean Platelet Volume 7.7 fL (7.4-10.4); Platelet Count 343 thou/uL (130-400); White Blood Cell (WBC) Count 9.9 thou/uL (4.8-10.8)
[2021-04-08 04:18] LABS: Anion Gap 14 mmol/L (10-20); BUN (Urea Nitrogen) 13 mg/dL (8.9-20.6); Calc. Creatinine Clearance 179 mL/min (70-130); Calcium 9.3 mg/dL (7.8-10.44); Carbon Dioxide 31 mmol/L (22-29); Chloride 97 mmol/L (98-107); Glucose 150 mg/dL (70-105); Potassium 4.1 mmol/L (3.5-5.1); Sodium 138 mmol/L (136-145)
[2021-04-08 04:59] LABS: Band 2 % (5-11); Eosinophils 5 % (0-10); Lymphocytes 40 % (21-51); MDiff Complete? YES; Monocytes 7 % (0-10); Neutrophil 46 % (42-75)
[2021-04-08] MEDS: Dexmedetomidine 1,000 MCG in Sodium Chloride 0.9% 250 ML 240 ML IVPB SCH (06:34)
[2021-04-08] MEDS: Aspirin Chewable 81 MG TAB PO SCH (09:00)
[2021-04-08] MEDS: ALPRAZolam 1 MG TAB PO SCH ×3 (09:00→20:44)
[2021-04-08] MEDS: Enoxaparin Sodium 40 MG/0.4 ML SYRINGE SC SCH ×2 (09:00→20:44)
[2021-04-08] MEDS: Senokot 8.6 MG TAB PER TUBE SCH ×2 (09:01→20:45)
[2021-04-08] MEDS: Escitalopram Oxalate 10 mg Tablet PER TUBE SCH (09:01)
[2021-04-08] MEDS: Thiamine 100 MG TAB PER TUBE SCH (09:01)
[2021-04-08] MEDS: Polyethylene Glycol 3350 17 GM Packet PO SCH (09:01)
[2021-04-08] MEDS: Midodrine HCl 5 MG TAB PO SCH ×3 (09:01→20:44)
[2021-04-08] MEDS: Pantoprazole 40 MG GRANULES PACKET PER TUBE SCH (09:01)
[2021-04-08] MEDS: Folic Acid 1 MG TAB PER TUBE SCH (09:01)
[2021-04-09] MEDS: guaiFENesin/Codeine 200 mg/20 mg 10 ml Cup PO SCH ×4 (04:10→20:51)
[2021-04-09] MEDS: ALPRAZolam 1 MG TAB PO SCH ×3 (09:23→20:51)
[2021-04-09] MEDS: fentaNYL 50 mcg/hour Patch TD SCH (09:27)
[2021-04-09] MEDS: Midodrine HCl 5 MG TAB PO SCH ×3 (09:28→20:51)
[2021-04-09] MEDS: Escitalopram Oxalate 10 mg Tablet PER TUBE SCH (09:28)
[2021-04-09] MEDS: Folic Acid 1 MG TAB PER TUBE SCH (09:29)
[2021-04-09] MEDS: Aspirin Chewable 81 MG TAB PO SCH (09:29)
[2021-04-09] MEDS: Senokot 8.6 MG TAB PER TUBE SCH ×2 (09:29→19:46)
[2021-04-09] MEDS: Pantoprazole 40 MG GRANULES PACKET PER TUBE SCH (09:29)
[2021-04-09] MEDS: Thiamine 100 MG TAB PER TUBE SCH (09:29)
[2021-04-09] MEDS: Enoxaparin Sodium 40 MG/0.4 ML SYRINGE SC SCH ×2 (09:29→20:51)
[2021-04-09] MEDS: Polyethylene Glycol 3350 17 GM Packet PO SCH (09:30)
[2021-04-09] MEDS: Lorazepam 2 MG/ML VIAL SLOW IVP PRN ×2 (09:36→13:41)
[2021-04-09] MEDS: Acetaminophen 650 MG/20.3 ML UDCUP PER TUBE PRN (14:28)
[2021-04-10] MEDS: guaiFENesin/Codeine 200 mg/20 mg 10 ml Cup PO SCH ×4 (03:38→20:47)
[2021-04-10 04:30] LABS: Anion Gap 15 mmol/L (10-20); BUN (Urea Nitrogen) 16 mg/dL (8.9-20.6); Calc. Creatinine Clearance 163 mL/min (70-130); Calcium 9.3 mg/dL (7.8-10.44); Carbon Dioxide 28 mmol/L (22-29); Chloride 99 mmol/L (98-107); Glucose 127 mg/dL (70-105); Sodium 138 mmol/L (136-145)
[2021-04-10 05:06] LABS: Band 4 % (5-11); Eosinophils 5 % (0-10); Hemoglobin 8.8 g/dL (14.0-18.0); Lymphocytes 21 % (21-51); MDiff Complete? YES; Mean Corpuscular HGB CONC 34.1 g/dL (32.0-36.0); Mean Corpuscular Hemoglobin 30.1 pg (27.0-31.0); Mean Corpuscular Volume 88.2 fL (78.0-98.0); Mean Platelet Volume 7.1 fL (7.4-10.4); Monocytes 13 % (0-10); Neutrophil 57 % (42-75); Platelet Count 419 thou/uL (130-400); Platelet Morphology Comment Appears Increased; RBC Distribution Width 13.2 % (11.5-14.5); Red Blood Cell (RBC) Count 2.91 mill/uL (4.70-6.10); White Blood Cell (WBC) Count 12.6 thou/uL (4.8-10.8)
[2021-04-10] MEDS: Polyethylene Glycol 3350 17 GM Packet PO SCH (09:04)
[2021-04-10] MEDS: Enoxaparin Sodium 40 MG/0.4 ML SYRINGE SC SCH ×2 (09:04→19:59)
[2021-04-10] MEDS: Aspirin Chewable 81 MG TAB PO SCH (09:04)
[2021-04-10] MEDS: Escitalopram Oxalate 10 mg Tablet PER TUBE SCH (09:04)
[2021-04-10] MEDS: ALPRAZolam 1 MG TAB PO SCH ×3 (09:04→19:59)
[2021-04-10] MEDS: Pantoprazole 40 MG GRANULES PACKET PER TUBE SCH (09:04)
[2021-04-10] MEDS: Folic Acid 1 MG TAB PER TUBE SCH (09:04)
[2021-04-10] MEDS: Thiamine 100 MG TAB PER TUBE SCH (09:14)
[2021-04-10] MEDS: Midodrine HCl 5 MG TAB PO SCH ×3 (09:14→19:59)
[2021-04-10] MEDS: Senokot 8.6 MG TAB PER TUBE SCH ×2 (09:14→19:59)
[2021-04-10] MEDS: Lorazepam 2 MG/ML VIAL SLOW IVP PRN ×2 (15:45→22:26)
[2021-04-11] MEDS: Acetaminophen 650 MG/20.3 ML UDCUP PER TUBE PRN (00:36)
[2021-04-11] MEDS: Lorazepam 2 MG/ML VIAL SLOW IVP PRN ×4 (00:36→18:59)
[2021-04-11] MEDS: guaiFENesin/Codeine 200 mg/20 mg 10 ml Cup PO SCH ×4 (04:50→20:04)
[2021-04-11] MEDS: Aspirin Chewable 81 MG TAB PO SCH (09:26)
[2021-04-11] MEDS: Enoxaparin Sodium 40 MG/0.4 ML SYRINGE SC SCH ×2 (09:26→20:04)
[2021-04-11] MEDS: Pantoprazole 40 MG GRANULES PACKET PER TUBE SCH (09:26)
[2021-04-11] MEDS: ALPRAZolam 1 MG TAB PO SCH ×3 (09:26→20:05)
[2021-04-11] MEDS: Thiamine 100 MG TAB PER TUBE SCH (09:27)
[2021-04-11] MEDS: Folic Acid 1 MG TAB PER TUBE SCH (09:27)
[2021-04-11] MEDS: Escitalopram Oxalate 10 mg Tablet PER TUBE SCH (09:27)
[2021-04-11] MEDS: Polyethylene Glycol 3350 17 GM Packet PO SCH (09:28)
[2021-04-11] MEDS: Senokot 8.6 MG TAB PER TUBE SCH ×2 (09:28→20:05)
[2021-04-11] MEDS: Midodrine HCl 5 MG TAB PO SCH ×3 (10:09→20:05)
[2021-04-11] MEDS: Dexmedetomidine 1,000 MCG in Sodium Chloride 0.9% 250 ML 240 ML IVPB SCH (20:03)
[2021-04-12] MEDS: Lorazepam 2 MG/ML VIAL SLOW IVP PRN ×2 (00:32→06:18)
[2021-04-12] MEDS: guaiFENesin/Codeine 200 mg/20 mg 10 ml Cup PO SCH ×4 (04:01→20:19)
[2021-04-12 04:28] LABS: Anion Gap 14 mmol/L (10-20); BUN (Urea Nitrogen) 15 mg/dL (8.9-20.6); Calc. Creatinine Clearance 170 mL/min (70-130); Calcium 9.6 mg/dL (7.8-10.44); Carbon Dioxide 30 mmol/L (22-29); Chloride 98 mmol/L (98-107); Glucose 116 mg/dL (70-105); Potassium 4.4 mmol/L (3.5-5.1); Sodium 138 mmol/L (136-145)
[2021-04-12 05:19] LABS: Band 2 % (5-11); Eosinophils 2 % (0-10); Hemoglobin 9.2 g/dL (14.0-18.0); Lymphocytes 27 % (21-51); MDiff Complete? YES; Mean Corpuscular HGB CONC 34.3 g/dL (32.0-36.0); Mean Corpuscular Hemoglobin 29.9 pg (27.0-31.0); Mean Corpuscular Volume 87.3 fL (78.0-98.0); Mean Platelet Volume 6.4 fL (7.4-10.4); Monocytes 6 % (0-10); Neutrophil 62 % (42-75); Platelet Count 493 thou/uL (130-400); Platelet Morphology Comment Appears Increased; RBC Distribution Width 13.2 % (11.5-14.5); RBC Morphology Normal; Reactive Lymphocytes 1 % (0-10); Red Blood Cell (RBC) Count 3.08 mill/uL (4.70-6.10); White Blood Cell (WBC) Count 15.4 thou/uL (4.8-10.8)
[2021-04-12] MEDS: Enoxaparin Sodium 40 MG/0.4 ML SYRINGE SC SCH ×2 (09:07→20:19)
[2021-04-12] MEDS: ALPRAZolam 1 MG TAB PO SCH ×3 (09:08→20:19)
[2021-04-12] MEDS: Folic Acid 1 MG TAB PER TUBE SCH (09:08)
[2021-04-12] MEDS: Escitalopram Oxalate 10 mg Tablet PER TUBE SCH (09:08)
[2021-04-12] MEDS: Aspirin Chewable 81 MG TAB PO SCH (09:08)
[2021-04-12] MEDS: Thiamine 100 MG TAB PER TUBE SCH (09:08)
[2021-04-12] MEDS: Pantoprazole 40 MG GRANULES PACKET PER TUBE SCH (09:08)
[2021-04-12] MEDS: fentaNYL 50 mcg/hour Patch TD SCH (09:09)
[2021-04-12] MEDS: Senokot 8.6 MG TAB PER TUBE SCH ×2 (09:11→20:19)
[2021-04-12] MEDS: Polyethylene Glycol 3350 17 GM Packet PO SCH (09:11)
[2021-04-12] MEDS: Midodrine HCl 5 MG TAB PO SCH ×3 (09:15→20:19)
[2021-04-12] MEDS: Acetaminophen 650 MG/20.3 ML UDCUP PER TUBE PRN (11:53)
[2021-04-13] MEDS: guaiFENesin/Codeine 200 mg/20 mg 10 ml Cup PO SCH ×4 (04:45→20:01)
[2021-04-13] MEDS: Thiamine 100 MG TAB PER TUBE SCH (08:11)
[2021-04-13] MEDS: Escitalopram Oxalate 10 mg Tablet PER TUBE SCH (08:11)
[2021-04-13] MEDS: Midodrine HCl 5 MG TAB PO SCH ×3 (08:11→20:02)
[2021-04-13] MEDS: Folic Acid 1 MG TAB PER TUBE SCH (08:11)
[2021-04-13] MEDS: Aspirin Chewable 81 MG TAB PO SCH (08:11)
[2021-04-13] MEDS: Pantoprazole 40 MG GRANULES PACKET PER TUBE SCH (08:11)
[2021-04-13] MEDS: Enoxaparin Sodium 40 MG/0.4 ML SYRINGE SC SCH ×2 (08:11→20:02)
[2021-04-13] MEDS: ALPRAZolam 1 MG TAB PO SCH ×3 (08:11→20:01)
[2021-04-13] MEDS: Polyethylene Glycol 3350 17 GM Packet PO SCH (08:12)
[2021-04-13] MEDS: Senokot 8.6 MG TAB PER TUBE SCH ×2 (08:12→20:02)
[2021-04-13] MEDS: Dexmedetomidine 1,000 MCG in Sodium Chloride 0.9% 250 ML 240 ML IVPB SCH (12:52)
[2021-04-14 04:28] LABS: Mean Corpuscular HGB CONC 32.9 g/dL (32.0-36.0); Mean Corpuscular Hemoglobin 28.9 pg (27.0-31.0); Mean Corpuscular Volume 87.9 fL (78.0-98.0); Mean Platelet Volume 6.1 fL (7.4-10.4); Platelet Count 451 thou/uL (130-400); RBC Distribution Width 13.6 % (11.5-14.5); Red Blood Cell (RBC) Count 3.11 mill/uL (4.70-6.10); White Blood Cell (WBC) Count 11.3 thou/uL (4.8-10.8)
[2021-04-14] MEDS: guaiFENesin/Codeine 200 mg/20 mg 10 ml Cup PO SCH ×4 (04:31→21:32)
[2021-04-14] MEDS: Lorazepam 2 MG/ML VIAL SLOW IVP PRN ×3 (04:31→21:32)
[2021-04-14 04:34] LABS: Anion Gap 13 mmol/L (10-20); BUN (Urea Nitrogen) 12 mg/dL (8.9-20.6); Calc. Creatinine Clearance 179 mL/min (70-130); Calcium 10.1 mg/dL (7.8-10.44); Carbon Dioxide 31 mmol/L (22-29); Chloride 99 mmol/L (98-107); Glucose 130 mg/dL (70-105); Sodium 139 mmol/L (136-145)
[2021-04-14 04:45] LABS: Band 3 % (5-11); Eosinophils 3 % (0-10); Lymphocytes 19 % (21-51); MDiff Complete? YES; Monocytes 8 % (0-10); Neutrophil 67 % (42-75); Platelet Morphology Comment Appears Increased; RBC Morphology Normal
[2021-04-14] MEDS: Enoxaparin Sodium 40 MG/0.4 ML SYRINGE SC SCH ×2 (08:36→21:32)
[2021-04-14] MEDS: Aspirin Chewable 81 MG TAB PO SCH (08:36)
[2021-04-14] MEDS: ALPRAZolam 1 MG TAB PO SCH ×3 (08:36→21:31)
[2021-04-14] MEDS: Escitalopram Oxalate 10 mg Tablet PER TUBE SCH (08:37)
[2021-04-14] MEDS: Pantoprazole 40 MG GRANULES PACKET PER TUBE SCH (08:38)
[2021-04-14] MEDS: Thiamine 100 MG TAB PER TUBE SCH (08:38)
[2021-04-14] MEDS: Polyethylene Glycol 3350 17 GM Packet PO SCH (08:38)
[2021-04-14] MEDS: Senokot 8.6 MG TAB PER TUBE SCH ×2 (08:38→21:31)
[2021-04-14] MEDS: Folic Acid 1 MG TAB PER TUBE SCH (08:38)
[2021-04-14] MEDS: Midodrine HCl 5 MG TAB PO SCH ×3 (08:38→21:31)
[2021-04-15] MEDS: Dexmedetomidine 1,000 MCG in Sodium Chloride 0.9% 250 ML 240 ML IVPB SCH (03:44)
[2021-04-15] MEDS: guaiFENesin/Codeine 200 mg/20 mg 10 ml Cup PO SCH ×4 (03:47→21:24)
[2021-04-15] MEDS: Enoxaparin Sodium 40 MG/0.4 ML SYRINGE SC SCH ×2 (08:54→21:22)
[2021-04-15] MEDS: Thiamine 100 MG TAB PER TUBE SCH (08:55)
[2021-04-15] MEDS: Midodrine HCl 5 MG TAB PO SCH ×3 (08:55→21:22)
[2021-04-15] MEDS: Aspirin Chewable 81 MG TAB PO SCH (08:55)
[2021-04-15] MEDS: Pantoprazole 40 MG GRANULES PACKET PER TUBE SCH (08:55)
[2021-04-15] MEDS: fentaNYL 50 mcg/hour Patch TD SCH (08:55)
[2021-04-15] MEDS: Escitalopram Oxalate 10 mg Tablet PER TUBE SCH (08:55)
[2021-04-15] MEDS: Folic Acid 1 MG TAB PER TUBE SCH (08:55)
[2021-04-15] MEDS: ALPRAZolam 1 MG TAB PO SCH ×3 (08:56→21:22)
[2021-04-15] MEDS: Polyethylene Glycol 3350 17 GM Packet PO SCH (08:56)
[2021-04-15] MEDS: Senokot 8.6 MG TAB PER TUBE SCH ×2 (08:57→21:22)
[2021-04-15] MEDS: Lorazepam 2 MG/ML VIAL SLOW IVP PRN (09:57)
[2021-04-16] MEDS: guaiFENesin/Codeine 200 mg/20 mg 10 ml Cup PO SCH ×4 (03:45→21:17)
[2021-04-16 04:28] LABS: Anion Gap 14 mmol/L (10-20); BUN (Urea Nitrogen) 13 mg/dL (8.9-20.6); Calc. Creatinine Clearance 170 mL/min (70-130); Calcium 9.7 mg/dL (7.8-10.44); Carbon Dioxide 29 mmol/L (22-29); Chloride 98 mmol/L (98-107); Glucose 117 mg/dL (70-105); Potassium 4.5 mmol/L (3.5-5.1); Sodium 136 mmol/L (136-145)
[2021-04-16] MEDS: Polyethylene Glycol 3350 17 GM Packet PO SCH (08:44)
[2021-04-16] MEDS: Enoxaparin Sodium 40 MG/0.4 ML SYRINGE SC SCH ×2 (08:44→20:49)
[2021-04-16] MEDS: Thiamine 100 MG TAB PER TUBE SCH (08:44)
[2021-04-16] MEDS: ALPRAZolam 1 MG TAB PO SCH ×3 (08:44→20:49)
[2021-04-16] MEDS: Escitalopram Oxalate 10 mg Tablet PER TUBE SCH (08:44)
[2021-04-16] MEDS: Midodrine HCl 5 MG TAB PO SCH ×3 (08:44→20:49)
[2021-04-16] MEDS: Senokot 8.6 MG TAB PER TUBE SCH ×2 (08:44→20:49)
[2021-04-16] MEDS: Aspirin Chewable 81 MG TAB PO SCH (08:44)
[2021-04-16] MEDS: Folic Acid 1 MG TAB PER TUBE SCH (08:44)
[2021-04-16] MEDS: Pantoprazole 40 MG GRANULES PACKET PER TUBE SCH (08:44)
[2021-04-16] MEDS: Lorazepam 2 MG/ML VIAL SLOW IVP PRN ×3 (10:03→23:09)
[2021-04-16] MEDS: Dexmedetomidine 1,000 MCG in Sodium Chloride 0.9% 250 ML 240 ML IVPB SCH (10:04)
[2021-04-17] MEDS: guaiFENesin/Codeine 200 mg/20 mg 10 ml Cup PO SCH ×4 (03:27→21:13)
[2021-04-17] MEDS: Folic Acid 1 MG TAB PER TUBE SCH (09:02)
[2021-04-17] MEDS: Pantoprazole 40 MG GRANULES PACKET PER TUBE SCH (09:02)
[2021-04-17] MEDS: ALPRAZolam 1 MG TAB PO SCH ×3 (09:02→21:13)
[2021-04-17] MEDS: Midodrine HCl 5 MG TAB PO SCH ×3 (09:02→21:14)
[2021-04-17] MEDS: Aspirin Chewable 81 MG TAB PO SCH (09:02)
[2021-04-17] MEDS: Thiamine 100 MG TAB PER TUBE SCH (09:02)
[2021-04-17] MEDS: Escitalopram Oxalate 10 mg Tablet PER TUBE SCH (09:02)
[2021-04-17] MEDS: Enoxaparin Sodium 40 MG/0.4 ML SYRINGE SC SCH ×2 (09:02→21:14)
[2021-04-17] MEDS: Polyethylene Glycol 3350 17 GM Packet PO SCH (09:03)
[2021-04-17] MEDS: Senokot 8.6 MG TAB PER TUBE SCH ×2 (09:03→21:14)
[2021-04-17] MEDS: Dexmedetomidine 1,000 MCG in Sodium Chloride 0.9% 250 ML 240 ML IVPB SCH (20:01)
[2021-04-17] MEDS: Lorazepam 2 MG/ML VIAL SLOW IVP PRN (21:17)
[2021-04-18] MEDS: Lorazepam 2 MG/ML VIAL SLOW IVP PRN (02:57)
[2021-04-18] MEDS: guaiFENesin/Codeine 200 mg/20 mg 10 ml Cup PO SCH ×4 (03:55→21:43)
[2021-04-18] MEDS: fentaNYL 50 mcg/hour Patch TD SCH (09:31)
[2021-04-18] MEDS: Pantoprazole 40 MG GRANULES PACKET PER TUBE SCH (09:32)
[2021-04-18] MEDS: Aspirin Chewable 81 MG TAB PO SCH (09:32)
[2021-04-18] MEDS: Enoxaparin Sodium 40 MG/0.4 ML SYRINGE SC SCH ×2 (09:32→21:43)
[2021-04-18] MEDS: ALPRAZolam 1 MG TAB PO SCH ×3 (09:32→21:46)
[2021-04-18] MEDS: Midodrine HCl 5 MG TAB PO SCH ×3 (09:32→21:46)
[2021-04-18] MEDS: Folic Acid 1 MG TAB PER TUBE SCH (09:32)
[2021-04-18] MEDS: Escitalopram Oxalate 10 mg Tablet PER TUBE SCH (09:32)
[2021-04-18] MEDS: Thiamine 100 MG TAB PER TUBE SCH (09:32)
[2021-04-18] MEDS: Senokot 8.6 MG TAB PER TUBE SCH ×2 (09:33→21:47)
[2021-04-18] MEDS: Polyethylene Glycol 3350 17 GM Packet PO SCH (09:33)
[2021-04-18 11:20] LABS: Anion Gap 18 mmol/L (10-20); BUN (Urea Nitrogen) 19 mg/dL (8.9-20.6); Calc. Creatinine Clearance 157 mL/min (70-130); Calcium 10.5 mg/dL (7.8-10.44); Carbon Dioxide 24 mmol/L (22-29); Chloride 97 mmol/L (98-107); Glucose 109 mg/dL (70-105); Potassium 4.5 mmol/L (3.5-5.1); Sodium 134 mmol/L (136-145)
[2021-04-19] MEDS: Lorazepam 2 MG/ML VIAL SLOW IVP PRN ×3 (01:24→17:18)
[2021-04-19] MEDS: guaiFENesin/Codeine 200 mg/20 mg 10 ml Cup PO SCH ×4 (03:45→19:56)
[2021-04-19] MEDS: ALPRAZolam 1 MG TAB PO SCH ×3 (08:39→19:55)
[2021-04-19] MEDS: Enoxaparin Sodium 40 MG/0.4 ML SYRINGE SC SCH ×2 (08:39→19:56)
[2021-04-19] MEDS: Polyethylene Glycol 3350 17 GM Packet PO SCH (08:39)
[2021-04-19] MEDS: Folic Acid 1 MG TAB PER TUBE SCH (08:40)
[2021-04-19] MEDS: Escitalopram Oxalate 10 mg Tablet PER TUBE SCH (08:40)
[2021-04-19] MEDS: Thiamine 100 MG TAB PER TUBE SCH (08:40)
[2021-04-19] MEDS: Pantoprazole 40 MG GRANULES PACKET PER TUBE SCH (08:40)
[2021-04-19] MEDS: Aspirin Chewable 81 MG TAB PO SCH (08:40)
[2021-04-19] MEDS: Midodrine HCl 5 MG TAB PO SCH ×3 (08:44→19:56)
[2021-04-19] MEDS: Senokot 8.6 MG TAB PER TUBE SCH ×2 (08:44→19:56)
[2021-04-20] MEDS: guaiFENesin/Codeine 200 mg/20 mg 10 ml Cup PO SCH ×4 (03:37→21:55)
[2021-04-20 04:36] LABS: Anion Gap 11 mmol/L (10-20); BUN (Urea Nitrogen) 20 mg/dL (8.9-20.6); Calc. Creatinine Clearance 164 mL/min (70-130); Calcium 9.9 mg/dL (7.8-10.44); Carbon Dioxide 30 mmol/L (22-29); Chloride 96 mmol/L (98-107); Glucose 119 mg/dL (70-105); Sodium 133 mmol/L (136-145)
[2021-04-20] MEDS: Dexmedetomidine 1,000 MCG in Sodium Chloride 0.9% 250 ML 240 ML IVPB SCH (06:44)
[2021-04-20] MEDS: Senokot 8.6 MG TAB PER TUBE SCH ×2 (08:54→20:06)
[2021-04-20] MEDS: Midodrine HCl 5 MG TAB PO SCH ×3 (08:54→20:06)
[2021-04-20] MEDS: Enoxaparin Sodium 40 MG/0.4 ML SYRINGE SC SCH ×2 (08:54→20:06)
[2021-04-20] MEDS: Polyethylene Glycol 3350 17 GM Packet PO SCH (08:54)
[2021-04-20] MEDS: Aspirin Chewable 81 MG TAB PO SCH (08:55)
[2021-04-20] MEDS: Folic Acid 1 MG TAB PER TUBE SCH (08:55)
[2021-04-20] MEDS: ALPRAZolam 1 MG TAB PO SCH ×3 (08:55→20:05)
[2021-04-20] MEDS: Escitalopram Oxalate 10 mg Tablet PER TUBE SCH (08:56)
[2021-04-20] MEDS: Lorazepam 2 MG/ML VIAL SLOW IVP PRN ×2 (08:56→11:51)
[2021-04-20] MEDS: Pantoprazole 40 MG GRANULES PACKET PER TUBE SCH (08:56)
[2021-04-20] MEDS: Thiamine 100 MG TAB PER TUBE SCH (08:56)
[2021-04-21] MEDS: Dexmedetomidine 1,000 MCG in Sodium Chloride 0.9% 250 ML 240 ML IVPB SCH (01:10)
[2021-04-21] MEDS: guaiFENesin/Codeine 200 mg/20 mg 10 ml Cup PO SCH ×4 (03:20→21:32)
[2021-04-21] MEDS: Lorazepam 2 MG/ML VIAL SLOW IVP PRN (07:07)
[2021-04-21] MEDS: Enoxaparin Sodium 40 MG/0.4 ML SYRINGE SC SCH ×2 (08:52→20:22)
[2021-04-21] MEDS: Senokot 8.6 MG TAB PER TUBE SCH ×2 (08:53→20:23)
[2021-04-21] MEDS: ALPRAZolam 1 MG TAB PO SCH ×3 (08:53→20:23)
[2021-04-21] MEDS: Midodrine HCl 5 MG TAB PO SCH ×3 (08:53→20:23)
[2021-04-21] MEDS: Folic Acid 1 MG TAB PER TUBE SCH (08:53)
[2021-04-21] MEDS: Escitalopram Oxalate 10 mg Tablet PER TUBE SCH (08:55)
[2021-04-21] MEDS: Aspirin Chewable 81 MG TAB PO SCH (08:55)
[2021-04-21] MEDS: Pantoprazole 40 MG GRANULES PACKET PER TUBE SCH (08:55)
[2021-04-21] MEDS: fentaNYL 50 mcg/hour Patch TD SCH (08:55)
[2021-04-21] MEDS: Polyethylene Glycol 3350 17 GM Packet PO SCH (08:55)
[2021-04-21] MEDS: Thiamine 100 MG TAB PER TUBE SCH (08:55)
[2021-04-21] MEDS: Scopolamine 1.5 mg/72 hour Patch TD SCH (09:31)
[2021-04-22] MEDS: Dexmedetomidine 1,000 MCG in Sodium Chloride 0.9% 250 ML 240 ML IVPB SCH (03:13)
[2021-04-22] MEDS: guaiFENesin/Codeine 200 mg/20 mg 10 ml Cup PO SCH ×4 (03:13→21:34)
[2021-04-22 04:19] LABS: Anion Gap 13 mmol/L (10-20); BUN (Urea Nitrogen) 20 mg/dL (8.9-20.6); Calc. Creatinine Clearance 169 mL/min (70-130); Calcium 10.2 mg/dL (7.8-10.44); Carbon Dioxide 32 mmol/L (22-29); Chloride 95 mmol/L (98-107); Glucose 106 mg/dL (70-105); Potassium 4.3 mmol/L (3.5-5.1); Sodium 136 mmol/L (136-145)
[2021-04-22 04:58] LABS: Band 5 % (5-11); Eosinophils 1 % (0-10); Hemoglobin 8.9 g/dL (14.0-18.0); Lymphocytes 19 % (21-51); MDiff Complete? YES; Mean Corpuscular HGB CONC 32.7 g/dL (32.0-36.0); Mean Corpuscular Hemoglobin 28.4 pg (27.0-31.0); Mean Corpuscular Volume 86.7 fL (78.0-98.0); Mean Platelet Volume 6.7 fL (7.4-10.4); Monocytes 6 % (0-10); Neutrophil 68 % (42-75); Platelet Count 402 thou/uL (130-400); RBC Distribution Width 13.6 % (11.5-14.5); Reactive Lymphocytes 1 % (0-10); Red Blood Cell (RBC) Count 3.14 mill/uL (4.70-6.10); White Blood Cell (WBC) Count 13.7 thou/uL (4.8-10.8)
[2021-04-22] MEDS: Aspirin Chewable 81 MG TAB PO SCH (08:36)
[2021-04-22] MEDS: Enoxaparin Sodium 40 MG/0.4 ML SYRINGE SC SCH ×2 (08:36→20:01)
[2021-04-22] MEDS: Folic Acid 1 MG TAB PER TUBE SCH (08:36)
[2021-04-22] MEDS: Senokot 8.6 MG TAB PER TUBE SCH ×2 (08:36→20:01)
[2021-04-22] MEDS: Midodrine HCl 5 MG TAB PO SCH ×3 (08:36→20:01)
[2021-04-22] MEDS: Escitalopram Oxalate 10 mg Tablet PER TUBE SCH (08:36)
[2021-04-22] MEDS: ALPRAZolam 1 MG TAB PO SCH ×3 (08:36→20:00)
[2021-04-22] MEDS: Polyethylene Glycol 3350 17 GM Packet PO SCH (08:36)
[2021-04-22] MEDS: Pantoprazole 40 MG GRANULES PACKET PER TUBE SCH (08:37)
[2021-04-22] MEDS: Thiamine 100 MG TAB PER TUBE SCH (08:37)
[2021-04-22] MEDS: Lorazepam 2 MG/ML VIAL SLOW IVP PRN (14:46)
[2021-04-23] MEDS: guaiFENesin/Codeine 200 mg/20 mg 10 ml Cup PO SCH ×4 (03:26→21:03)
[2021-04-23] MEDS: Dexmedetomidine 1,000 MCG in Sodium Chloride 0.9% 250 ML 240 ML IVPB SCH (03:26)
[2021-04-23 04:24] LABS: Band 5 % (5-11); Hemoglobin 8.9 g/dL (14.0-18.0); Lymphocytes 22 % (21-51); MDiff Complete? YES; Mean Corpuscular HGB CONC 32.4 g/dL (32.0-36.0); Mean Corpuscular Volume 86.3 fL (78.0-98.0); Mean Platelet Volume 6.9 fL (7.4-10.4); Monocytes 9 % (0-10); Neutrophil 63 % (42-75); Platelet Count 405 thou/uL (130-400); Platelet Morphology Comment Appears Adequate; RBC Distribution Width 13.6 % (11.5-14.5); RBC Morphology Normal; Reactive Lymphocytes 1 % (0-10); Red Blood Cell (RBC) Count 3.18 mill/uL (4.70-6.10); White Blood Cell (WBC) Count 14.3 thou/uL (4.8-10.8)
[2021-04-23] MEDS: Midodrine HCl 5 MG TAB PO SCH ×3 (08:59→21:03)
[2021-04-23] MEDS: Pantoprazole 40 MG GRANULES PACKET PER TUBE SCH (08:59)
[2021-04-23] MEDS: Senokot 8.6 MG TAB PER TUBE SCH ×2 (08:59→21:04)
[2021-04-23] MEDS: ALPRAZolam 1 MG TAB PO SCH ×3 (09:00→21:03)
[2021-04-23] MEDS: Escitalopram Oxalate 10 mg Tablet PER TUBE SCH (09:00)
[2021-04-23] MEDS: Aspirin Chewable 81 MG TAB PO SCH (09:00)
[2021-04-23] MEDS: Folic Acid 1 MG TAB PER TUBE SCH (09:00)
[2021-04-23] MEDS: Thiamine 100 MG TAB PER TUBE SCH (09:00)
[2021-04-23] MEDS: Enoxaparin Sodium 40 MG/0.4 ML SYRINGE SC SCH ×2 (09:00→21:03)
[2021-04-23] MEDS: Polyethylene Glycol 3350 17 GM Packet PO SCH (09:01)
[2021-04-23] MEDS: Lorazepam 2 MG/ML VIAL SLOW IVP PRN ×2 (09:44→13:34)
[2021-04-23] MEDS: Budesonide 0.5 MG/2 ML NEB NEB SCH (18:48)
[2021-04-24 04:45] LABS: Band 6 % (5-11); Eosinophils 1 % (0-10); Hemoglobin 9.4 g/dL (14.0-18.0); Hypochromia SLIGHT = 6-15 cells (100X) (0-5/hpf); Lymphocytes 14 % (21-51); MDiff Complete? YES; Mean Corpuscular HGB CONC 32.5 g/dL (32.0-36.0); Mean Corpuscular Hemoglobin 28.2 pg (27.0-31.0); Mean Corpuscular Volume 86.7 fL (78.0-98.0); Mean Platelet Volume 6.9 fL (7.4-10.4); Monocytes 17 % (0-10); Neutrophil 62 % (42-75); Platelet Count 401 thou/uL (130-400); Platelet Morphology Comment Appears Adequate; RBC Distribution Width 13.8 % (11.5-14.5); Red Blood Cell (RBC) Count 3.32 mill/uL (4.70-6.10); White Blood Cell (WBC) Count 14.2 thou/uL (4.8-10.8)
[2021-04-24 05:02] LABS: Anion Gap 14 mmol/L (10-20); BUN (Urea Nitrogen) 14 mg/dL (8.9-20.6); Calc. Creatinine Clearance 150 mL/min (70-130); Calcium 10.3 mg/dL (7.8-10.44); Carbon Dioxide 30 mmol/L (22-29); Chloride 98 mmol/L (98-107); Glucose 120 mg/dL (70-105); Potassium 3.9 mmol/L (3.5-5.1); Sodium 138 mmol/L (136-145)
[2021-04-24] MEDS: guaiFENesin/Codeine 200 mg/20 mg 10 ml Cup PO SCH ×4 (05:51→21:07)
[2021-04-24] MEDS: Budesonide 0.5 MG/2 ML NEB NEB SCH ×2 (06:48→18:20)
[2021-04-24] MEDS: ALPRAZolam 1 MG TAB PO SCH ×3 (08:52→21:02)
[2021-04-24] MEDS: Folic Acid 1 MG TAB PER TUBE SCH (08:52)
[2021-04-24] MEDS: Aspirin Chewable 81 MG TAB PO SCH (08:52)
[2021-04-24] MEDS: Thiamine 100 MG TAB PER TUBE SCH (08:52)
[2021-04-24] MEDS: Escitalopram Oxalate 10 mg Tablet PER TUBE SCH (08:52)
[2021-04-24] MEDS: Senokot 8.6 MG TAB PER TUBE SCH ×2 (08:52→21:03)
[2021-04-24] MEDS: Midodrine HCl 5 MG TAB PO SCH ×3 (08:53→21:03)
[2021-04-24] MEDS: Polyethylene Glycol 3350 17 GM Packet PO SCH (08:53)
[2021-04-24] MEDS: Scopolamine 1.5 mg/72 hour Patch TD SCH (08:53)
[2021-04-24] MEDS: Enoxaparin Sodium 40 MG/0.4 ML SYRINGE SC SCH ×2 (08:53→21:01)
[2021-04-24] MEDS: Pantoprazole 40 MG GRANULES PACKET PER TUBE SCH (08:53)
[2021-04-24] MEDS: fentaNYL 50 mcg/hour Patch TD SCH (08:54)
[2021-04-24] MEDS: Dexmedetomidine 1,000 MCG in Sodium Chloride 0.9% 250 ML 240 ML IVPB SCH (09:05)
[2021-04-24] MEDS ORDERED: Furosemide 40 MG TAB PO SCH (13:00)
[2021-04-25] MEDS: guaiFENesin/Codeine 200 mg/20 mg 10 ml Cup PO SCH ×4 (03:54→20:46)
[2021-04-25 05:45] LABS: Lymphocytes 39 % (21-51); MDiff Complete? YES; Mean Corpuscular HGB CONC 33.2 g/dL (32.0-36.0); Mean Corpuscular Hemoglobin 29.2 pg (27.0-31.0); Mean Platelet Volume 7.5 fL (7.4-10.4); Monocytes 5 % (0-10); Neutrophil 51 % (42-75); Platelet Count 318 thou/uL (130-400); Platelet Morphology Comment Appears Adequate; RBC Distribution Width 13.7 % (11.5-14.5); RBC Morphology Normal; Reactive Lymphocytes 5 % (0-10); Red Blood Cell (RBC) Count 3.08 mill/uL (4.70-6.10); White Blood Cell (WBC) Count 9.7 thou/uL (4.8-10.8)
[2021-04-25] MEDS: Budesonide 0.5 MG/2 ML NEB NEB SCH ×2 (06:30→18:24)
[2021-04-25] MEDS: Dexmedetomidine 1,000 MCG in Sodium Chloride 0.9% 250 ML 240 ML IVPB SCH (06:32)
[2021-04-25] MEDS ORDERED: Furosemide 40 MG TAB PO SCH ×2 (07:30)
[2021-04-25] MEDS: Enoxaparin Sodium 40 MG/0.4 ML SYRINGE SC SCH ×2 (08:51→20:46)
[2021-04-25] MEDS: ALPRAZolam 1 MG TAB PO SCH ×3 (08:51→20:45)
[2021-04-25] MEDS: Pantoprazole 40 MG GRANULES PACKET PER TUBE SCH (08:51)
[2021-04-25] MEDS: Senokot 8.6 MG TAB PER TUBE SCH ×2 (08:51→20:51)
[2021-04-25] MEDS: Polyethylene Glycol 3350 17 GM Packet PO SCH (08:51)
[2021-04-25] MEDS: Midodrine HCl 5 MG TAB PO SCH ×3 (08:51→20:46)
[2021-04-25] MEDS: Thiamine 100 MG TAB PER TUBE SCH (08:51)
[2021-04-25] MEDS: Aspirin Chewable 81 MG TAB PO SCH (08:51)
[2021-04-25] MEDS: Escitalopram Oxalate 10 mg Tablet PER TUBE SCH (08:51)
[2021-04-25] MEDS: Folic Acid 1 MG TAB PER TUBE SCH (08:51)
[2021-04-25] MEDS ORDERED: Sodium Bicarbonate Tab 325 MG TAB PER TUBE PRN (14:45)
[2021-04-25] MEDS: Lorazepam 2 MG/ML VIAL SLOW IVP PRN (23:58)
[2021-04-26] MEDS: Acetaminophen 650 MG/20.3 ML UDCUP PER TUBE PRN (01:34)
[2021-04-26 04:15] LABS: Band 2 % (5-11); Eosinophils 1 % (0-10); Hemoglobin 9.5 g/dL (14.0-18.0); Hypochromia SLIGHT = 6-15 cells (100X) (0-5/hpf); Lymphocytes 27 % (21-51); MDiff Complete? YES; Mean Corpuscular HGB CONC 32.5 g/dL (32.0-36.0); Mean Corpuscular Hemoglobin 28.6 pg (27.0-31.0); Mean Platelet Volume 7.1 fL (7.4-10.4); Monocytes 3 % (0-10); Neutrophil 67 % (42-75); Platelet Count 394 thou/uL (130-400); Platelet Morphology Comment Appears Adequate; Red Blood Cell (RBC) Count 3.33 mill/uL (4.70-6.10); White Blood Cell (WBC) Count 18.5 thou/uL (4.8-10.8)
[2021-04-26 04:21] LABS: Anion Gap 14 mmol/L (10-20); BUN (Urea Nitrogen) 25 mg/dL (8.9-20.6); Calc. Creatinine Clearance 0 mL/min (70-130); Calcium 10.5 mg/dL (7.8-10.44); Carbon Dioxide 29 mmol/L (22-29); Chloride 101 mmol/L (98-107); Glucose 141 mg/dL (70-105); Potassium 3.9 mmol/L (3.5-5.1); Sodium 140 mmol/L (136-145)
[2021-04-26] MEDS: guaiFENesin/Codeine 200 mg/20 mg 10 ml Cup PO SCH ×4 (05:56→21:46)
[2021-04-26] MEDS: Senokot 8.6 MG TAB PER TUBE SCH ×2 (07:54→21:45)
[2021-04-26] MEDS: Polyethylene Glycol 3350 17 GM Packet PO SCH (07:54)
[2021-04-26] MEDS: Pantoprazole 40 MG GRANULES PACKET PER TUBE SCH (07:54)
[2021-04-26] MEDS: ALPRAZolam 1 MG TAB PO SCH ×3 (07:54→21:44)
[2021-04-26] MEDS: Midodrine HCl 5 MG TAB PO SCH ×3 (07:55→21:44)
[2021-04-26] MEDS: Thiamine 100 MG TAB PER TUBE SCH (07:55)
[2021-04-26] MEDS: Enoxaparin Sodium 40 MG/0.4 ML SYRINGE SC SCH ×2 (07:55→21:44)
[2021-04-26] MEDS: Escitalopram Oxalate 10 mg Tablet PER TUBE SCH (07:55)
[2021-04-26] MEDS: Aspirin Chewable 81 MG TAB PO SCH (07:55)
[2021-04-26] MEDS: Folic Acid 1 MG TAB PER TUBE SCH (07:55)
[2021-04-26] MEDS: Budesonide 0.5 MG/2 ML NEB NEB SCH ×2 (08:32→18:15)
[2021-04-26] MEDS ORDERED: clonazePAM 0.5 MG TAB PO PRN (14:31)
[2021-04-26] MEDS: Lorazepam 2 MG/ML VIAL SLOW IVP PRN ×2 (15:00→17:14)
[2021-04-27] MEDS: guaiFENesin/Codeine 200 mg/20 mg 10 ml Cup PO SCH ×4 (03:54→21:59)
[2021-04-27] MEDS: Lorazepam 2 MG/ML VIAL SLOW IVP PRN ×3 (04:27→16:15)
[2021-04-27 05:00] LABS: Band 3 % (5-11); Eosinophils 1 % (0-10); Hemoglobin 9.6 g/dL (14.0-18.0); Lymphocytes 26 % (21-51); MDiff Complete? YES; Mean Corpuscular Hemoglobin 29.2 pg (27.0-31.0); Mean Corpuscular Volume 88.4 fL (78.0-98.0); Mean Platelet Volume 7.9 fL (7.4-10.4); Monocytes 6 % (0-10); Neutrophil 62 % (42-75); Platelet Count 292 thou/uL (130-400); Platelet Morphology Comment Appears Adequate; RBC Distribution Width 13.9 % (11.5-14.5); RBC Morphology Normal; Reactive Lymphocytes 1 % (0-10); Red Blood Cell (RBC) Count 3.28 mill/uL (4.70-6.10); White Blood Cell (WBC) Count 11.1 thou/uL (4.8-10.8)
[2021-04-27] MEDS: Budesonide 0.5 MG/2 ML NEB NEB SCH ×2 (07:51→18:28)
[2021-04-27] MEDS: Scopolamine 1.5 mg/72 hour Patch TD SCH (08:58)
[2021-04-27] MEDS: Aspirin Chewable 81 MG TAB PO SCH (08:58)
[2021-04-27] MEDS: Midodrine HCl 5 MG TAB PO SCH ×3 (08:58→21:59)
[2021-04-27] MEDS: Polyethylene Glycol 3350 17 GM Packet PO SCH (08:58)
[2021-04-27] MEDS: ALPRAZolam 1 MG TAB PO SCH ×3 (08:58→21:55)
[2021-04-27] MEDS: Enoxaparin Sodium 40 MG/0.4 ML SYRINGE SC SCH ×2 (08:59→21:55)
[2021-04-27] MEDS: Senokot 8.6 MG TAB PER TUBE SCH ×2 (08:59→21:59)
[2021-04-27] MEDS: fentaNYL 50 mcg/hour Patch TD SCH (09:00)
[2021-04-27] MEDS: Pantoprazole 40 MG GRANULES PACKET PER TUBE SCH (09:00)
[2021-04-27] MEDS: Folic Acid 1 MG TAB PER TUBE SCH (09:01)
[2021-04-27] MEDS: Escitalopram Oxalate 10 mg Tablet PER TUBE SCH (09:01)
[2021-04-27] MEDS: Thiamine 100 MG TAB PER TUBE SCH (09:01)
[2021-04-27] MEDS ORDERED: MEROPENEM 1 GM/50 ML 1 GM in Premix Bag 1 BAG IVPB SCH (12:00)
[2021-04-27] MEDS: MEROPENEM 1 GM/50 ML 1 GM in Premix Bag 1 BAG IVPB SCH (21:54)
[2021-04-28 04:24] LABS: Hemoglobin 9.7 g/dL (14.0-18.0); Hypochromia SLIGHT = 6-15 cells (100X) (0-5/hpf); Lymphocytes 38 % (21-51); MDiff Complete? YES; Mean Corpuscular HGB CONC 33.8 g/dL (32.0-36.0); Mean Corpuscular Hemoglobin 29.5 pg (27.0-31.0); Mean Corpuscular Volume 87.2 fL (78.0-98.0); Mean Platelet Volume 8.9 fL (7.4-10.4); Monocytes 10 % (0-10); Neutrophil 52 % (42-75); Platelet Count 234 thou/uL (130-400); Platelet Morphology Comment Appears Adequate; RBC Distribution Width 13.7 % (11.5-14.5); Red Blood Cell (RBC) Count 3.29 mill/uL (4.70-6.10); White Blood Cell (WBC) Count 10.4 thou/uL (4.8-10.8)
[2021-04-28] MEDS: guaiFENesin/Codeine 200 mg/20 mg 10 ml Cup PO SCH ×4 (04:27→20:56)
[2021-04-28] MEDS: MEROPENEM 1 GM/50 ML 1 GM in Premix Bag 1 BAG IVPB SCH (04:27)
[2021-04-28 04:29] LABS: Anion Gap 13 mmol/L (10-20); BUN (Urea Nitrogen) 28 mg/dL (8.9-20.6); Calc. Creatinine Clearance 155 mL/min (70-130); Calcium 10.2 mg/dL (7.8-10.44); Carbon Dioxide 31 mmol/L (22-29); Chloride 101 mmol/L (98-107); Glucose 103 mg/dL (70-105); Sodium 141 mmol/L (136-145)
[2021-04-28] MEDS: Budesonide 0.5 MG/2 ML NEB NEB SCH ×2 (06:51→19:18)
[2021-04-28] MEDS: Enoxaparin Sodium 40 MG/0.4 ML SYRINGE SC SCH ×2 (09:04→20:57)
[2021-04-28] MEDS: Escitalopram Oxalate 10 mg Tablet PER TUBE SCH (09:05)
[2021-04-28] MEDS: Senokot 8.6 MG TAB PER TUBE SCH ×2 (09:05→20:57)
[2021-04-28] MEDS: Aspirin Chewable 81 MG TAB PO SCH (09:05)
[2021-04-28] MEDS: ALPRAZolam 1 MG TAB PO SCH ×3 (09:05→20:56)
[2021-04-28] MEDS: Folic Acid 1 MG TAB PER TUBE SCH (09:05)
[2021-04-28] MEDS: Pantoprazole 40 MG GRANULES PACKET PER TUBE SCH (09:05)
[2021-04-28] MEDS: Polyethylene Glycol 3350 17 GM Packet PO SCH (09:05)
[2021-04-28] MEDS: Midodrine HCl 5 MG TAB PO SCH ×3 (09:05→20:57)
[2021-04-28] MEDS: Thiamine 100 MG TAB PER TUBE SCH (09:05)
[2021-04-28] MEDS: Lorazepam 2 MG/ML VIAL SLOW IVP PRN ×2 (10:45→16:01)
[2021-04-28] MEDS: Meropenem 1 GM in Sodium Chloride 0.9% 100 ML IVPB SCH ×2 (11:14→20:56)
[2021-04-29] MEDS: Meropenem 1 GM in Sodium Chloride 0.9% 100 ML IVPB SCH (03:50)
[2021-04-29] MEDS: guaiFENesin/Codeine 200 mg/20 mg 10 ml Cup PO SCH ×4 (03:50→21:38)
[2021-04-29 04:00] LABS: Hemoglobin 9.6 g/dL (14.0-18.0); Mean Corpuscular HGB CONC 33.7 g/dL (32.0-36.0); Mean Corpuscular Hemoglobin 29.4 pg (27.0-31.0); Mean Corpuscular Volume 87.1 fL (78.0-98.0); Mean Platelet Volume 7.6 fL (7.4-10.4); Platelet Count 302 thou/uL (130-400); RBC Distribution Width 13.4 % (11.5-14.5); Red Blood Cell (RBC) Count 3.25 mill/uL (4.70-6.10); White Blood Cell (WBC) Count 8.2 thou/uL (4.8-10.8)
[2021-04-29 04:56] LABS: Band 1 % (5-11); Eosinophils 4 % (0-10); Lymphocytes 37 % (21-51); MDiff Complete? YES; Monocytes 11 % (0-10); Neutrophil 45 % (42-75); Platelet Morphology Comment Appears Adequate; RBC Morphology Normal; Reactive Lymphocytes 2 % (0-10)
[2021-04-29] MEDS: Lorazepam 2 MG/ML VIAL SLOW IVP PRN ×4 (05:21→21:39)
[2021-04-29] MEDS: Budesonide 0.5 MG/2 ML NEB NEB SCH ×2 (07:43→18:16)
[2021-04-29] MEDS: Folic Acid 1 MG TAB PER TUBE SCH (08:46)
[2021-04-29] MEDS: ALPRAZolam 1 MG TAB PO SCH ×3 (08:46→21:39)
[2021-04-29] MEDS: Enoxaparin Sodium 40 MG/0.4 ML SYRINGE SC SCH ×2 (08:46→21:39)
[2021-04-29] MEDS: Thiamine 100 MG TAB PER TUBE SCH (08:46)
[2021-04-29] MEDS: Aspirin Chewable 81 MG TAB PO SCH (08:46)
[2021-04-29] MEDS: Escitalopram Oxalate 10 mg Tablet PER TUBE SCH (08:47)
[2021-04-29] MEDS: Pantoprazole 40 MG GRANULES PACKET PER TUBE SCH (08:47)
[2021-04-29] MEDS: Senokot 8.6 MG TAB PER TUBE SCH ×2 (08:47→21:39)
[2021-04-29] MEDS: Midodrine HCl 5 MG TAB PO SCH ×3 (08:47→21:39)
[2021-04-29] MEDS: Polyethylene Glycol 3350 17 GM Packet PO SCH (08:47)
[2021-04-29] MEDS: Acetaminophen 650 MG/20.3 ML UDCUP PER TUBE PRN (21:38)
[2021-04-29] MEDS: Ondansetron PF 4 MG/2 ML Vial IVP PRN (22:50)
[2021-04-30 04:07] LABS: Anion Gap 11 mmol/L (10-20); BUN (Urea Nitrogen) 31 mg/dL (8.9-20.6); Calc. Creatinine Clearance 148 mL/min (70-130); Calcium 10.5 mg/dL (7.8-10.44); Carbon Dioxide 35 mmol/L (22-29); Chloride 101 mmol/L (98-107); Glucose 106 mg/dL (70-105); Potassium 3.6 mmol/L (3.5-5.1); Sodium 143 mmol/L (136-145)
[2021-04-30 05:02] LABS: Band 3 % (5-11); Eosinophils 3 % (0-10); Hemoglobin 9.4 g/dL (14.0-18.0); Lymphocytes 40 % (21-51); MDiff Complete? YES; Mean Corpuscular HGB CONC 32.6 g/dL (32.0-36.0); Mean Corpuscular Volume 88.9 fL (78.0-98.0); Mean Platelet Volume 7.1 fL (7.4-10.4); Monocytes 5 % (0-10); Neutrophil 48 % (42-75); Platelet Count 339 thou/uL (130-400); RBC Distribution Width 13.5 % (11.5-14.5); Red Blood Cell (RBC) Count 3.24 mill/uL (4.70-6.10); White Blood Cell (WBC) Count 8.7 thou/uL (4.8-10.8)
[2021-04-30] MEDS: guaiFENesin/Codeine 200 mg/20 mg 10 ml Cup PO SCH ×4 (05:50→21:14)
[2021-04-30] MEDS: Lorazepam 2 MG/ML VIAL SLOW IVP PRN (06:27)
[2021-04-30] MEDS: Budesonide 0.5 MG/2 ML NEB NEB SCH ×2 (07:23→19:10)
[2021-04-30] MEDS: ALPRAZolam 1 MG TAB PO SCH ×3 (08:26→21:13)
[2021-04-30] MEDS: Senokot 8.6 MG TAB PER TUBE SCH ×2 (08:27→21:13)
[2021-04-30] MEDS: Pantoprazole 40 MG GRANULES PACKET PER TUBE SCH (08:27)
[2021-04-30] MEDS: Escitalopram Oxalate 10 mg Tablet PER TUBE SCH (08:27)
[2021-04-30] MEDS: Aspirin Chewable 81 MG TAB PO SCH (08:27)
[2021-04-30] MEDS: Thiamine 100 MG TAB PER TUBE SCH (08:27)
[2021-04-30] MEDS: Folic Acid 1 MG TAB PER TUBE SCH (08:27)
[2021-04-30] MEDS: Midodrine HCl 5 MG TAB PO SCH ×3 (08:27→21:14)
[2021-04-30] MEDS: Enoxaparin Sodium 40 MG/0.4 ML SYRINGE SC SCH ×2 (08:28→21:13)
[2021-04-30] MEDS: fentaNYL 50 mcg/hour Patch TD SCH (08:28)
[2021-04-30] MEDS: Polyethylene Glycol 3350 17 GM Packet PO SCH (08:29)
[2021-04-30] MEDS: Scopolamine 1.5 mg/72 hour Patch TD SCH (08:30)
[2021-04-30] MEDS ORDERED: diphenhydrAMINE 50 MG/ML VIAL IVP SCH (14:15)
[2021-04-30] MEDS: Cefepime 2 GM in Sodium Chloride 0.9% 100 ML IVPB SCH ×2 (15:15→21:37)
[2021-04-30] MEDS: Acetaminophen 650 MG/20.3 ML UDCUP PER TUBE PRN (17:58)
[2021-05-01] MEDS: guaiFENesin/Codeine 200 mg/20 mg 10 ml Cup PO SCH ×4 (02:54→21:08)
[2021-05-01 03:53] LABS: Hemoglobin 8.6 g/dL (14.0-18.0); Mean Corpuscular HGB CONC 32.6 g/dL (32.0-36.0); Mean Corpuscular Hemoglobin 28.7 pg (27.0-31.0); Mean Corpuscular Volume 87.9 fL (78.0-98.0); Mean Platelet Volume 9.6 fL (7.4-10.4); Platelet Count 169 thou/uL (130-400); RBC Distribution Width 13.7 % (11.5-14.5); Red Blood Cell (RBC) Count 3.02 mill/uL (4.70-6.10); White Blood Cell (WBC) Count 14.2 thou/uL (4.8-10.8)
[2021-05-01 03:54] LABS: Band 4 % (5-11); Lymphocytes 10 % (21-51); MDiff Complete? YES; Monocytes 3 % (0-10); Neutrophil 83 % (42-75)
[2021-05-01] MEDS: Cefepime 2 GM in Sodium Chloride 0.9% 100 ML IVPB SCH ×3 (05:07→21:08)
[2021-05-01] MEDS: Budesonide 0.5 MG/2 ML NEB NEB SCH ×2 (07:15→18:26)
[2021-05-01] MEDS: Folic Acid 1 MG TAB PER TUBE SCH (08:43)
[2021-05-01] MEDS: Thiamine 100 MG TAB PER TUBE SCH (08:43)
[2021-05-01] MEDS: ALPRAZolam 1 MG TAB PO SCH ×3 (08:43→20:11)
[2021-05-01] MEDS: Aspirin Chewable 81 MG TAB PO SCH (08:43)
[2021-05-01] MEDS: Escitalopram Oxalate 10 mg Tablet PER TUBE SCH (08:44)
[2021-05-01] MEDS: Enoxaparin Sodium 40 MG/0.4 ML SYRINGE SC SCH ×2 (08:44→20:11)
[2021-05-01] MEDS: Pantoprazole 40 MG GRANULES PACKET PER TUBE SCH (08:44)
[2021-05-01] MEDS: Midodrine HCl 5 MG TAB PO SCH ×3 (08:50→20:11)
[2021-05-01] MEDS: Senokot 8.6 MG TAB PER TUBE SCH ×2 (08:51→20:12)
[2021-05-01] MEDS: Polyethylene Glycol 3350 17 GM Packet PO SCH (08:51)
[2021-05-01] MEDS: Ondansetron PF 4 MG/2 ML Vial IVP PRN (09:19)
[2021-05-01 14:59] LABS: Thyroid Stimulating Hormone 1.4539 uIU/mL (0.35-4.94); Vitamin D, 25 Hydroxy 34.9 ng/ml (> 30.0)
[2021-05-02] MEDS: guaiFENesin/Codeine 200 mg/20 mg 10 ml Cup PO SCH ×4 (02:47→20:47)
[2021-05-02 04:38] LABS: Anion Gap 12 mmol/L (10-20); BUN (Urea Nitrogen) 26 mg/dL (8.9-20.6); Calc. Creatinine Clearance 166 mL/min (70-130); Calcium 9.9 mg/dL (7.8-10.44); Carbon Dioxide 30 mmol/L (22-29); Chloride 99 mmol/L (98-107); Glucose 115 mg/dL (70-105); Potassium 3.9 mmol/L (3.5-5.1); Sodium 137 mmol/L (136-145)
[2021-05-02] MEDS: Cefepime 2 GM in Sodium Chloride 0.9% 100 ML IVPB SCH ×3 (05:06→21:16)
[2021-05-02 06:01] LABS: Band 12 % (5-11); Eosinophils 5 % (0-10); Hemoglobin 8.5 g/dL (14.0-18.0); Lymphocytes 9 % (21-51); MDiff Complete? YES; Mean Corpuscular HGB CONC 33.3 g/dL (32.0-36.0); Mean Corpuscular Hemoglobin 29.1 pg (27.0-31.0); Mean Corpuscular Volume 87.5 fL (78.0-98.0); Mean Platelet Volume 8.5 fL (7.4-10.4); Monocytes 5 % (0-10); Neutrophil 69 % (42-75); Platelet Count 218 thou/uL (130-400); RBC Distribution Width 13.6 % (11.5-14.5); Red Blood Cell (RBC) Count 2.92 mill/uL (4.70-6.10); White Blood Cell (WBC) Count 11.4 thou/uL (4.8-10.8)
[2021-05-02] MEDS: Budesonide 0.5 MG/2 ML NEB NEB SCH ×2 (07:15→18:49)
[2021-05-02] MEDS: Aspirin Chewable 81 MG TAB PO SCH (08:59)
[2021-05-02] MEDS: Thiamine 100 MG TAB PER TUBE SCH (08:59)
[2021-05-02] MEDS: Ondansetron PF 4 MG/2 ML Vial IVP PRN ×3 (08:59→22:58)
[2021-05-02] MEDS: Midodrine HCl 5 MG TAB PO SCH ×3 (08:59→20:38)
[2021-05-02] MEDS: Folic Acid 1 MG TAB PER TUBE SCH (08:59)
[2021-05-02] MEDS: ALPRAZolam 1 MG TAB PO SCH ×3 (08:59→20:39)
[2021-05-02] MEDS: Escitalopram Oxalate 10 mg Tablet PER TUBE SCH (08:59)
[2021-05-02] MEDS: Pantoprazole 40 MG GRANULES PACKET PER TUBE SCH (09:00)
[2021-05-02] MEDS: Enoxaparin Sodium 40 MG/0.4 ML SYRINGE SC SCH ×2 (09:00→20:39)
[2021-05-02] MEDS: Senokot 8.6 MG TAB PER TUBE SCH ×2 (10:02→20:22)
[2021-05-02] MEDS: Polyethylene Glycol 3350 17 GM Packet PO SCH (10:02)
[2021-05-02] MEDS: Lorazepam 2 MG/ML VIAL SLOW IVP PRN (16:36)
[2021-05-02] MEDS ORDERED: Ciprofloxacin 500 MG TAB PO SCH (20:00)
[2021-05-03] MEDS: Lorazepam 2 MG/ML VIAL SLOW IVP PRN (01:18)
[2021-05-03] MEDS: guaiFENesin/Codeine 200 mg/20 mg 10 ml Cup PO SCH ×4 (02:45→21:59)
[2021-05-03] MEDS: Guaifenesin DM 100-10/5 ML UDCUP PO PRN (02:46)
[2021-05-03] MEDS: Cefepime 2 GM in Sodium Chloride 0.9% 100 ML IVPB SCH ×3 (05:59→21:56)
[2021-05-03] MEDS: Budesonide 0.5 MG/2 ML NEB NEB SCH ×2 (07:27→18:34)
[2021-05-03] MEDS: Ondansetron PF 4 MG/2 ML Vial IVP PRN ×2 (08:20→14:05)
[2021-05-03] MEDS: Scopolamine 1.5 mg/72 hour Patch TD SCH (08:24)
[2021-05-03] MEDS: Enoxaparin Sodium 40 MG/0.4 ML SYRINGE SC SCH ×2 (08:26→21:56)
[2021-05-03] MEDS: Midodrine HCl 5 MG TAB PO SCH ×3 (08:26→21:57)
[2021-05-03] MEDS: Escitalopram Oxalate 10 mg Tablet PER TUBE SCH (08:26)
[2021-05-03] MEDS: fentaNYL 50 mcg/hour Patch TD SCH (08:26)
[2021-05-03] MEDS: Pantoprazole 40 MG GRANULES PACKET PER TUBE SCH (08:26)
[2021-05-03] MEDS: Thiamine 100 MG TAB PER TUBE SCH (08:26)
[2021-05-03] MEDS: Folic Acid 1 MG TAB PER TUBE SCH (08:26)
[2021-05-03] MEDS: Aspirin Chewable 81 MG TAB PO SCH (08:26)
[2021-05-03] MEDS: Polyethylene Glycol 3350 17 GM Packet PO SCH (08:28)
[2021-05-03] MEDS: Senokot 8.6 MG TAB PER TUBE SCH ×2 (08:28→21:57)
[2021-05-03] MEDS: ALPRAZolam 1 MG TAB PO SCH ×3 (09:21→21:57)
[2021-05-03 11:34] LABS: Hemoglobin 9.3 g/dL (14.0-18.0); Mean Corpuscular HGB CONC 32.5 g/dL (32.0-36.0); Mean Corpuscular Hemoglobin 27.9 pg (27.0-31.0); Mean Corpuscular Volume 85.8 fL (78.0-98.0); Mean Platelet Volume 9.6 fL (7.4-10.4); Platelet Count 204 thou/uL (130-400); RBC Distribution Width 13.8 % (11.5-14.5); Red Blood Cell (RBC) Count 3.34 mill/uL (4.70-6.10); White Blood Cell (WBC) Count 22.8 thou/uL (4.8-10.8)
[2021-05-03 12:03] LABS: Anion Gap 10 mmol/L (10-20); BUN (Urea Nitrogen) 14 mg/dL (8.9-20.6); Calc. Creatinine Clearance 148 mL/min (70-130); Calcium 10.8 mg/dL (7.8-10.44); Carbon Dioxide 32 mmol/L (22-29); Chloride 98 mmol/L (98-107); Glucose 118 mg/dL (70-105); Potassium 4.1 mmol/L (3.5-5.1); Sodium 136 mmol/L (136-145)
[2021-05-03 12:04] LABS: Band 18 % (5-11); Lymphocytes 14 % (21-51); MDiff Complete? YES; Monocytes 2 % (0-10); Neutrophil 66 % (42-75); Platelet Morphology Comment Appears Adequate; Polychromasia SLIGHT = 2-3 cells (100X) (0-2/hpf)
[2021-05-04] MEDS: guaiFENesin/Codeine 200 mg/20 mg 10 ml Cup PO SCH ×4 (03:58→21:14)
[2021-05-04 04:02] LABS: #Eosinphils 0.3 thou/uL (0.0-0.7); #Lymphocytes 2.8 thou/uL (1.20-3.40); #Monocytes 0.7 thou/uL (0.11-0.59); #Neutrophils 4.7 thou/uL (1.40-6.50); %Basophils 0.4 % (0.0-1.0); %Eosinophils 3.5 % (0.0-10.0); %Monocytes 8.1 % (0.0-10.0); Hemoglobin 9.1 g/dL (14.0-18.0); Mean Corpuscular HGB CONC 33.5 g/dL (32.0-36.0); Mean Corpuscular Hemoglobin 28.8 pg (27.0-31.0); Mean Corpuscular Volume 86.1 fL (78.0-98.0); Mean Platelet Volume 9.7 fL (7.4-10.4); Platelet Count 189 thou/uL (130-400); RBC Distribution Width 13.6 % (11.5-14.5); Red Blood Cell (RBC) Count 3.15 mill/uL (4.70-6.10); White Blood Cell (WBC) Count 8.6 thou/uL (4.8-10.8)
[2021-05-04 04:06] LABS: Anion Gap 11 mmol/L (10-20); BUN (Urea Nitrogen) 22 mg/dL (8.9-20.6); Calc. Creatinine Clearance 151 mL/min (70-130); Calcium 10.1 mg/dL (7.8-10.44); Carbon Dioxide 29 mmol/L (22-29); Chloride 101 mmol/L (98-107); Glucose 104 mg/dL (70-105); Potassium 4.3 mmol/L (3.5-5.1); Sodium 137 mmol/L (136-145)
[2021-05-04] MEDS: Cefepime 2 GM in Sodium Chloride 0.9% 100 ML IVPB SCH ×3 (05:49→21:14)
[2021-05-04 07:49] LABS: Band 6 % (5-11); Lymphocytes 34 % (21-51); Metamyelocyte 1 % (0-0); Monocytes 4 % (0-10); Reactive Lymphocytes 2 % (0-10)
[2021-05-04 07:50] LABS: Neutrophil 53 % (42-75); Platelet Morphology Comment Appears Adequate; Polychromasia SLIGHT = 2-3 cells (100X) (0-2/hpf)
[2021-05-04] MEDS: Budesonide 0.5 MG/2 ML NEB NEB SCH ×2 (07:58→18:44)
[2021-05-04] MEDS: Ondansetron PF 4 MG/2 ML Vial IVP PRN (08:05)
[2021-05-04] MEDS: Enoxaparin Sodium 40 MG/0.4 ML SYRINGE SC SCH ×2 (09:18→21:14)
[2021-05-04] MEDS: Senokot 8.6 MG TAB PER TUBE SCH ×2 (09:19→21:14)
[2021-05-04] MEDS: Folic Acid 1 MG TAB PER TUBE SCH (09:19)
[2021-05-04] MEDS: Aspirin Chewable 81 MG TAB PO SCH (09:19)
[2021-05-04] MEDS: Midodrine HCl 5 MG TAB PO SCH ×3 (09:19→21:14)
[2021-05-04] MEDS: Polyethylene Glycol 3350 17 GM Packet PO SCH (09:19)
[2021-05-04] MEDS: Escitalopram Oxalate 10 mg Tablet PER TUBE SCH (09:19)
[2021-05-04] MEDS: Pantoprazole 40 MG GRANULES PACKET PER TUBE SCH (09:19)
[2021-05-04] MEDS: Thiamine 100 MG TAB PER TUBE SCH (09:19)
[2021-05-04] MEDS: ALPRAZolam 1 MG TAB PO SCH ×3 (09:19→21:14)
[2021-05-04] MEDS: Pancrelipase DR 12,000 1 CAP FS PRN (21:51)
[2021-05-05] MEDS: guaiFENesin/Codeine 200 mg/20 mg 10 ml Cup PO SCH ×4 (03:16→21:17)
[2021-05-05 03:59] LABS: Mean Corpuscular HGB CONC 33.3 g/dL (32.0-36.0); Mean Corpuscular Volume 87.1 fL (78.0-98.0); Mean Platelet Volume 8.1 fL (7.4-10.4); Platelet Count 246 thou/uL (130-400); RBC Distribution Width 13.7 % (11.5-14.5); White Blood Cell (WBC) Count 8.3 thou/uL (4.8-10.8)
[2021-05-05 05:03] LABS: Band 5 % (5-11); Eosinophils 2 % (0-10); Lymphocytes 35 % (21-51); MDiff Complete? YES; Monocytes 6 % (0-10); Neutrophil 51 % (42-75); Reactive Lymphocytes 1 % (0-10)
[2021-05-05] MEDS: Cefepime 2 GM in Sodium Chloride 0.9% 100 ML IVPB SCH ×3 (05:15→21:17)
[2021-05-05] MEDS: Budesonide 0.5 MG/2 ML NEB NEB SCH ×2 (06:35→18:19)
[2021-05-05] MEDS: Ondansetron PF 4 MG/2 ML Vial IVP PRN ×2 (08:45→19:04)
[2021-05-05] MEDS: ALPRAZolam 1 MG TAB PO SCH ×3 (09:16→21:17)
[2021-05-05] MEDS: Acetaminophen 650 MG/20.3 ML UDCUP PER TUBE PRN (09:16)
[2021-05-05] MEDS: Escitalopram Oxalate 10 mg Tablet PER TUBE SCH (09:17)
[2021-05-05] MEDS: Senokot 8.6 MG TAB PER TUBE SCH ×2 (09:17→21:17)
[2021-05-05] MEDS: Polyethylene Glycol 3350 17 GM Packet PO SCH (09:17)
[2021-05-05] MEDS: Folic Acid 1 MG TAB PER TUBE SCH (09:17)
[2021-05-05] MEDS: Aspirin Chewable 81 MG TAB PO SCH (09:17)
[2021-05-05] MEDS: Enoxaparin Sodium 40 MG/0.4 ML SYRINGE SC SCH ×2 (09:17→21:17)
[2021-05-05] MEDS: Midodrine HCl 5 MG TAB PO SCH ×3 (09:17→21:17)
[2021-05-05] MEDS: Thiamine 100 MG TAB PER TUBE SCH (09:17)
[2021-05-05] MEDS: Pantoprazole 40 MG GRANULES PACKET PER TUBE SCH (09:17)
[2021-05-06] MEDS: guaiFENesin/Codeine 200 mg/20 mg 10 ml Cup PO SCH ×4 (03:11→21:42)
[2021-05-06 03:56] LABS: Hemoglobin 9.6 g/dL (14.0-18.0); Mean Corpuscular HGB CONC 35.7 g/dL (32.0-36.0); Mean Corpuscular Hemoglobin 30.8 pg (27.0-31.0); Mean Corpuscular Volume 86.3 fL (78.0-98.0); Mean Platelet Volume 8.7 fL (7.4-10.4); Platelet Count 195 thou/uL (130-400); RBC Distribution Width 13.6 % (11.5-14.5); Red Blood Cell (RBC) Count 3.13 mill/uL (4.70-6.10); White Blood Cell (WBC) Count 8.9 thou/uL (4.8-10.8)
[2021-05-06 04:12] LABS: Anion Gap 11 mmol/L (10-20); BUN (Urea Nitrogen) 25 mg/dL (8.9-20.6); Calc. Creatinine Clearance 156 mL/min (70-130); Calcium 9.9 mg/dL (7.8-10.44); Carbon Dioxide 29 mmol/L (22-29); Chloride 99 mmol/L (98-107); Glucose 134 mg/dL (70-105); Potassium 3.8 mmol/L (3.5-5.1); Sodium 135 mmol/L (136-145)
[2021-05-06 04:29] LABS: Band 3 % (5-11); Eosinophils 3 % (0-10); Lymphocytes 32 % (21-51); MDiff Complete? YES; Monocytes 7 % (0-10); Neutrophil 55 % (42-75)
[2021-05-06] MEDS: Cefepime 2 GM in Sodium Chloride 0.9% 100 ML IVPB SCH ×3 (05:30→21:22)
[2021-05-06] MEDS: Budesonide 0.5 MG/2 ML NEB NEB SCH ×2 (07:14→18:05)
[2021-05-06] MEDS: Ondansetron PF 4 MG/2 ML Vial IVP PRN (07:38)
[2021-05-06] MEDS: Polyethylene Glycol 3350 17 GM Packet PO SCH (08:31)
[2021-05-06] MEDS: Midodrine HCl 5 MG TAB PO SCH ×3 (08:31→21:23)
[2021-05-06] MEDS: Senokot 8.6 MG TAB PER TUBE SCH ×2 (08:31→21:23)
[2021-05-06] MEDS: Folic Acid 1 MG TAB PER TUBE SCH (08:32)
[2021-05-06] MEDS: Escitalopram Oxalate 10 mg Tablet PER TUBE SCH (08:32)
[2021-05-06] MEDS: Pantoprazole 40 MG GRANULES PACKET PER TUBE SCH (08:32)
[2021-05-06] MEDS: Aspirin Chewable 81 MG TAB PO SCH (08:32)
[2021-05-06] MEDS: Thiamine 100 MG TAB PER TUBE SCH (08:32)
[2021-05-06] MEDS: ALPRAZolam 1 MG TAB PO SCH ×3 (08:35→21:56)
[2021-05-06] MEDS: Enoxaparin Sodium 40 MG/0.4 ML SYRINGE SC SCH ×2 (08:35→21:22)
[2021-05-06] MEDS: Scopolamine 1.5 mg/72 hour Patch TD SCH (08:55)
[2021-05-06] MEDS: fentaNYL 50 mcg/hour Patch TD SCH (08:57)
[2021-05-07 04:30] LABS: Band 9 % (5-11); Eosinophils 2 % (0-10); Hemoglobin 9.6 g/dL (14.0-18.0); Hypochromia SLIGHT = 6-15 cells (100X) (0-5/hpf); Lymphocytes 21 % (21-51); MDiff Complete? YES; Mean Corpuscular HGB CONC 33.5 g/dL (32.0-36.0); Mean Corpuscular Volume 86.6 fL (78.0-98.0); Mean Platelet Volume 7.5 fL (7.4-10.4); Monocytes 4 % (0-10); Neutrophil 64 % (42-75); Platelet Count 292 thou/uL (130-400); Platelet Morphology Comment Appears Adequate; White Blood Cell (WBC) Count 10.6 thou/uL (4.8-10.8)
[2021-05-07] MEDS: Cefepime 2 GM in Sodium Chloride 0.9% 100 ML IVPB SCH ×3 (06:24→21:10)
[2021-05-07] MEDS: guaiFENesin/Codeine 200 mg/20 mg 10 ml Cup PO SCH ×4 (06:25→21:12)
[2021-05-07] MEDS: Budesonide 0.5 MG/2 ML NEB NEB SCH ×2 (07:08→18:03)
[2021-05-07] MEDS ORDERED: Enoxaparin Sodium 40 MG/0.4 ML SYRINGE ONE (08:17)
[2021-05-07] MEDS ORDERED: Aspirin Chewable 81 MG TAB ONE (08:17)
[2021-05-07] MEDS ORDERED: Escitalopram Oxalate 10 mg Tablet ONE (08:18)
[2021-05-07] MEDS ORDERED: Folic Acid 1 MG TAB ONE (08:18)
[2021-05-07] MEDS ORDERED: Pantoprazole 40 MG GRANULES PACKET ONE (08:19)
[2021-05-07] MEDS ORDERED: Polyethylene Glycol 3350 17 GM Packet ONE (08:19)
[2021-05-07] MEDS ORDERED: Senokot S 8.6-50 MG TAB ONE (08:20)
[2021-05-07] MEDS ORDERED: Thiamine 100 MG TAB ONE (08:21)
[2021-05-07] MEDS ORDERED: clonazePAM 0.5 MG TAB PO PRN (08:22)
[2021-05-07] MEDS: Thiamine 100 MG TAB PER TUBE SCH (08:24)
[2021-05-07] MEDS: Pantoprazole 40 MG GRANULES PACKET PER TUBE SCH (08:25)
[2021-05-07] MEDS: Folic Acid 1 MG TAB PER TUBE SCH (08:25)
[2021-05-07] MEDS: Senokot 8.6 MG TAB PER TUBE SCH ×2 (08:25→21:10)
[2021-05-07] MEDS: Polyethylene Glycol 3350 17 GM Packet PO SCH (08:25)
[2021-05-07] MEDS: Enoxaparin Sodium 40 MG/0.4 ML SYRINGE SC SCH ×2 (08:25→21:11)
[2021-05-07] MEDS: Aspirin Chewable 81 MG TAB PO SCH (08:25)
[2021-05-07] MEDS: Escitalopram Oxalate 10 mg Tablet PER TUBE SCH (08:25)
[2021-05-07] MEDS ORDERED: ALPRAZolam 1 MG TAB ONE ×2 (08:26→15:28)
[2021-05-07] MEDS: ALPRAZolam 1 MG TAB PO SCH ×3 (08:32→21:11)
[2021-05-07] MEDS: Midodrine HCl 5 MG TAB PO SCH ×3 (10:31→21:10)
[2021-05-07] MEDS ORDERED: Ondansetron PF 4 MG/2 ML Vial ONE (12:03)
[2021-05-07] MEDS: Ondansetron PF 4 MG/2 ML Vial IVP PRN (12:08)
[2021-05-07] MEDS ORDERED: guaiFENesin/Codeine 200 mg/20 mg 10 ml Cup ONE (15:24)
[2021-05-08 04:55] LABS: Anion Gap 11 mmol/L (10-20); BUN (Urea Nitrogen) 18 mg/dL (8.9-20.6); Calc. Creatinine Clearance 154 mL/min (70-130); Calcium 9.9 mg/dL (7.8-10.44); Carbon Dioxide 28 mmol/L (22-29); Chloride 99 mmol/L (98-107); Glucose 123 mg/dL (70-105); Sodium 134 mmol/L (136-145)
[2021-05-08] MEDS: guaiFENesin/Codeine 200 mg/20 mg 10 ml Cup PO SCH ×4 (05:01→22:32)
[2021-05-08] MEDS: Cefepime 2 GM in Sodium Chloride 0.9% 100 ML IVPB SCH ×3 (05:01→22:32)
[2021-05-08 05:15] LABS: Band 1 % (5-11); Eosinophils 5 % (0-10); Hemoglobin 10.1 g/dL (14.0-18.0); Lymphocytes 37 % (21-51); MDiff Complete? YES; Mean Corpuscular HGB CONC 35.7 g/dL (32.0-36.0); Mean Corpuscular Hemoglobin 30.7 pg (27.0-31.0); Mean Platelet Volume 7.2 fL (7.4-10.4); Monocytes 6 % (0-10); Neutrophil 49 % (42-75); Platelet Count 293 thou/uL (130-400); Platelet Morphology Comment Appears Adequate; Polychromasia SLIGHT = 2-3 cells (100X) (0-2/hpf); Reactive Lymphocytes 1 % (0-10); Red Blood Cell (RBC) Count 3.29 mill/uL (4.70-6.10); White Blood Cell (WBC) Count 9.6 thou/uL (4.8-10.8)
[2021-05-08] MEDS ORDERED: Budesonide 0.5 MG/2 ML NEB ONE (06:27)
[2021-05-08] MEDS: Budesonide 0.5 MG/2 ML NEB NEB SCH ×2 (07:05→17:58)
[2021-05-08] MEDS ORDERED: ALPRAZolam 1 MG TAB ONE (08:41)
[2021-05-08] MEDS: Aspirin Chewable 81 MG TAB PO SCH (08:42)
[2021-05-08] MEDS: Escitalopram Oxalate 10 mg Tablet PER TUBE SCH (08:42)
[2021-05-08] MEDS: Pantoprazole 40 MG GRANULES PACKET PER TUBE SCH (08:42)
[2021-05-08] MEDS: Senokot 8.6 MG TAB PER TUBE SCH ×2 (08:42→21:01)
[2021-05-08] MEDS: Polyethylene Glycol 3350 17 GM Packet PO SCH (08:42)
[2021-05-08] MEDS: Midodrine HCl 5 MG TAB PO SCH ×2 (08:42→21:01)
[2021-05-08] MEDS: Thiamine 100 MG TAB PER TUBE SCH (08:42)
[2021-05-08] MEDS: Folic Acid 1 MG TAB PER TUBE SCH (08:42)
[2021-05-08] MEDS: Enoxaparin Sodium 40 MG/0.4 ML SYRINGE SC SCH ×2 (08:43→21:01)
[2021-05-08] MEDS ORDERED: guaiFENesin/Codeine 200 mg/20 mg 10 ml Cup ONE (08:43)
[2021-05-08] MEDS: ALPRAZolam 1 MG TAB PO SCH ×3 (08:43→22:32)
[2021-05-08] MEDS ORDERED: Ondansetron PF 4 MG/2 ML Vial ONE (08:57)
[2021-05-08] MEDS: Ondansetron PF 4 MG/2 ML Vial IVP PRN ×2 (09:05→20:42)
[2021-05-08] MEDS ORDERED: Scopolamine 1.5 mg/72 hour Patch ONE (10:45)
[2021-05-08] MEDS: Scopolamine 1.5 mg/72 hour Patch TD SCH (11:30)
[2021-05-09 04:08] LABS: Hemoglobin 10.6 g/dL (14.0-18.0); Hypochromia SLIGHT = 6-15 cells (100X) (0-5/hpf); Lymphocytes 42 % (21-51); MDiff Complete? YES; Mean Corpuscular HGB CONC 34.2 g/dL (32.0-36.0); Mean Corpuscular Hemoglobin 29.3 pg (27.0-31.0); Mean Corpuscular Volume 85.6 fL (78.0-98.0); Mean Platelet Volume 7.6 fL (7.4-10.4); Monocytes 6 % (0-10); Neutrophil 52 % (42-75); Platelet Count 267 thou/uL (130-400); Platelet Morphology Comment Appears Adequate; RBC Distribution Width 14.4 % (11.5-14.5); Red Blood Cell (RBC) Count 3.63 mill/uL (4.70-6.10)
[2021-05-09] MEDS: guaiFENesin/Codeine 200 mg/20 mg 10 ml Cup PO SCH ×4 (04:37→22:39)
[2021-05-09] MEDS: Cefepime 2 GM in Sodium Chloride 0.9% 100 ML IVPB SCH ×2 (05:14→14:44)
[2021-05-09] MEDS: Budesonide 0.5 MG/2 ML NEB NEB SCH ×2 (07:43→18:11)
[2021-05-09] MEDS: Senokot 8.6 MG TAB PER TUBE SCH ×2 (12:06→21:39)
[2021-05-09] MEDS: Folic Acid 1 MG TAB PER TUBE SCH (12:06)
[2021-05-09] MEDS: Escitalopram Oxalate 10 mg Tablet PER TUBE SCH (12:06)
[2021-05-09] MEDS: Enoxaparin Sodium 40 MG/0.4 ML SYRINGE SC SCH ×2 (12:06→21:39)
[2021-05-09] MEDS: Midodrine HCl 5 MG TAB PO SCH ×2 (12:06→21:38)
[2021-05-09] MEDS: Thiamine 100 MG TAB PER TUBE SCH (12:06)
[2021-05-09] MEDS: Aspirin Chewable 81 MG TAB PO SCH (12:06)
[2021-05-09] MEDS: Pantoprazole 40 MG GRANULES PACKET PER TUBE SCH (12:07)
[2021-05-09] MEDS: ALPRAZolam 1 MG TAB PO SCH ×3 (12:08→21:38)
[2021-05-09] MEDS: Polyethylene Glycol 3350 17 GM Packet PO SCH (12:08)
[2021-05-10] MEDS: guaiFENesin/Codeine 200 mg/20 mg 10 ml Cup PO SCH ×4 (03:29→22:13)
[2021-05-10 04:10] LABS: Band 2 % (5-11); Hemoglobin 10.5 g/dL (14.0-18.0); Hypochromia SLIGHT = 6-15 cells (100X) (0-5/hpf); Lymphocytes 40 % (21-51); MDiff Complete? YES; Mean Corpuscular HGB CONC 34.1 g/dL (32.0-36.0); Mean Corpuscular Hemoglobin 29.5 pg (27.0-31.0); Mean Corpuscular Volume 86.4 fL (78.0-98.0); Mean Platelet Volume 8.2 fL (7.4-10.4); Monocytes 7 % (0-10); Neutrophil 51 % (42-75); Platelet Count 231 thou/uL (130-400); Platelet Morphology Comment Appears Adequate; RBC Distribution Width 14.3 % (11.5-14.5); Red Blood Cell (RBC) Count 3.56 mill/uL (4.70-6.10); White Blood Cell (WBC) Count 9.9 thou/uL (4.8-10.8)
[2021-05-10 04:17] LABS: Anion Gap 11 mmol/L (10-20); BUN (Urea Nitrogen) 19 mg/dL (8.9-20.6); Calc. Creatinine Clearance 153 mL/min (70-130); Calcium 10.1 mg/dL (7.8-10.44); Carbon Dioxide 28 mmol/L (22-29); Chloride 101 mmol/L (98-107); Glucose 140 mg/dL (70-105); Potassium 3.5 mmol/L (3.5-5.1); Sodium 136 mmol/L (136-145)
[2021-05-10] MEDS ORDERED: Potassium Chloride 20 MEQ TAB PO SCH (06:30)
[2021-05-10] MEDS: Budesonide 0.5 MG/2 ML NEB NEB SCH ×2 (07:37→18:48)
[2021-05-10] MEDS: Pantoprazole 40 MG GRANULES PACKET PER TUBE SCH (09:01)
[2021-05-10] MEDS: Polyethylene Glycol 3350 17 GM Packet PO SCH (09:01)
[2021-05-10] MEDS: Thiamine 100 MG TAB PER TUBE SCH (09:01)
[2021-05-10] MEDS: Senokot 8.6 MG TAB PER TUBE SCH ×2 (09:01→21:05)
[2021-05-10] MEDS: ALPRAZolam 1 MG TAB PO SCH ×3 (09:01→21:05)
[2021-05-10] MEDS: Escitalopram Oxalate 10 mg Tablet PER TUBE SCH (09:01)
[2021-05-10] MEDS: Folic Acid 1 MG TAB PER TUBE SCH (09:01)
[2021-05-10] MEDS: Aspirin Chewable 81 MG TAB PO SCH (09:01)
[2021-05-10] MEDS: Enoxaparin Sodium 40 MG/0.4 ML SYRINGE SC SCH ×2 (09:01→21:04)
[2021-05-10] MEDS: Midodrine HCl 5 MG TAB PO SCH ×2 (09:01→21:05)
[2021-05-10 12:55] LABS: Potassium 4.3 mmol/L (3.5-5.1)
[2021-05-11] MEDS: Pancrelipase DR 12,000 1 CAP FS PRN (00:56)
[2021-05-11 03:41] LABS: Hemoglobin 10.9 g/dL (14.0-18.0); Hypochromia SLIGHT = 6-15 cells (100X) (0-5/hpf); Lymphocytes 16 % (21-51); MDiff Complete? YES; Mean Corpuscular HGB CONC 33.2 g/dL (32.0-36.0); Mean Corpuscular Hemoglobin 28.6 pg (27.0-31.0); Mean Corpuscular Volume 86.3 fL (78.0-98.0); Monocytes 16 % (0-10); Neutrophil 68 % (42-75); Platelet Count 351 thou/uL (130-400); Platelet Morphology Comment Appears Adequate; RBC Distribution Width 14.7 % (11.5-14.5); Red Blood Cell (RBC) Count 3.81 mill/uL (4.70-6.10); White Blood Cell (WBC) Count 11.6 thou/uL (4.8-10.8)
[2021-05-11] MEDS: guaiFENesin/Codeine 200 mg/20 mg 10 ml Cup PO SCH ×4 (05:07→22:19)
[2021-05-11] MEDS: Budesonide 0.5 MG/2 ML NEB NEB SCH ×2 (07:56→18:24)
[2021-05-11] MEDS: Pantoprazole 40 MG GRANULES PACKET PER TUBE SCH (09:24)
[2021-05-11] MEDS: Escitalopram Oxalate 10 mg Tablet PER TUBE SCH (09:24)
[2021-05-11] MEDS: Aspirin Chewable 81 MG TAB PO SCH (09:24)
[2021-05-11] MEDS: Senokot 8.6 MG TAB PER TUBE SCH ×2 (09:24→22:20)
[2021-05-11] MEDS: Midodrine HCl 5 MG TAB PO SCH ×2 (09:24→09:25)
[2021-05-11] MEDS: Polyethylene Glycol 3350 17 GM Packet PO SCH (09:24)
[2021-05-11] MEDS: Enoxaparin Sodium 40 MG/0.4 ML SYRINGE SC SCH ×2 (09:24→22:20)
[2021-05-11] MEDS: Folic Acid 1 MG TAB PER TUBE SCH (09:25)
[2021-05-11] MEDS: ALPRAZolam 1 MG TAB PO SCH ×3 (09:25→22:19)
[2021-05-11] MEDS: Thiamine 100 MG TAB PER TUBE SCH (09:25)
[2021-05-11] MEDS: Scopolamine 1.5 mg/72 hour Patch TD SCH (11:49)
[2021-05-12 03:57] LABS: Anion Gap 10 mmol/L (10-20); BUN (Urea Nitrogen) 20 mg/dL (8.9-20.6); Calc. Creatinine Clearance 130 mL/min (70-130); Calcium 9.8 mg/dL (7.8-10.44); Carbon Dioxide 30 mmol/L (22-29); Chloride 100 mmol/L (98-107); Glucose 159 mg/dL (70-105); Potassium 3.8 mmol/L (3.5-5.1); Sodium 136 mmol/L (136-145)
[2021-05-12 04:02] LABS: Band 1 % (5-11); Eosinophils 1 % (0-10); Hemoglobin 11.3 g/dL (14.0-18.0); Hypochromia SLIGHT = 6-15 cells (100X) (0-5/hpf); Lymphocytes 47 % (21-51); MDiff Complete? YES; Mean Corpuscular HGB CONC 32.6 g/dL (32.0-36.0); Mean Corpuscular Hemoglobin 28.3 pg (27.0-31.0); Mean Platelet Volume 6.8 fL (7.4-10.4); Neutrophil 51 % (42-75); Platelet Count 327 thou/uL (130-400); Platelet Morphology Comment Appears Adequate; RBC Distribution Width 14.8 % (11.5-14.5); Red Blood Cell (RBC) Count 3.99 mill/uL (4.70-6.10)
[2021-05-12] MEDS: guaiFENesin/Codeine 200 mg/20 mg 10 ml Cup PO SCH ×4 (04:11→21:36)
[2021-05-12] MEDS: Budesonide 0.5 MG/2 ML NEB NEB SCH ×2 (07:11→18:04)
[2021-05-12] MEDS: Thiamine 100 MG TAB PER TUBE SCH (08:07)
[2021-05-12] MEDS: Aspirin Chewable 81 MG TAB PO SCH (08:07)
[2021-05-12] MEDS: ALPRAZolam 1 MG TAB PO SCH ×3 (08:07→21:12)
[2021-05-12] MEDS: Pantoprazole 40 MG GRANULES PACKET PER TUBE SCH (08:07)
[2021-05-12] MEDS: Senokot 8.6 MG TAB PER TUBE SCH ×2 (08:07→21:12)
[2021-05-12] MEDS: Polyethylene Glycol 3350 17 GM Packet PO SCH (08:07)
[2021-05-12] MEDS: Escitalopram Oxalate 10 mg Tablet PER TUBE SCH (08:07)
[2021-05-12] MEDS: Folic Acid 1 MG TAB PER TUBE SCH (08:07)
[2021-05-12] MEDS: Enoxaparin Sodium 40 MG/0.4 ML SYRINGE SC SCH ×2 (08:08→21:12)
[2021-05-12] MEDS: Midodrine HCl 5 MG TAB PO SCH ×2 (11:09→21:12)
[2021-05-12] MEDS: Guaifenesin DM 100-10/5 ML UDCUP PO PRN (21:35)
[2021-05-13 04:23] LABS: Band 3 % (5-11); Eosinophils 2 % (0-10); Hemoglobin 10.6 g/dL (14.0-18.0); Hypochromia SLIGHT = 6-15 cells (100X) (0-5/hpf); Lymphocytes 24 % (21-51); MDiff Complete? YES; Mean Corpuscular HGB CONC 34.3 g/dL (32.0-36.0); Mean Corpuscular Hemoglobin 29.5 pg (27.0-31.0); Mean Platelet Volume 7.1 fL (7.4-10.4); Monocytes 18 % (0-10); Neutrophil 53 % (42-75); Platelet Count 308 thou/uL (130-400); Platelet Morphology Comment Appears Adequate; RBC Distribution Width 14.6 % (11.5-14.5); Red Blood Cell (RBC) Count 3.58 mill/uL (4.70-6.10); White Blood Cell (WBC) Count 8.7 thou/uL (4.8-10.8)
[2021-05-13] MEDS: guaiFENesin/Codeine 200 mg/20 mg 10 ml Cup PO SCH ×4 (04:54→20:10)
[2021-05-13] MEDS: Budesonide 0.5 MG/2 ML NEB NEB SCH ×2 (07:14→18:35)
[2021-05-13] MEDS: Enoxaparin Sodium 40 MG/0.4 ML SYRINGE SC SCH ×2 (09:08→20:09)
[2021-05-13] MEDS: Polyethylene Glycol 3350 17 GM Packet PO SCH (09:08)
[2021-05-13] MEDS: ALPRAZolam 1 MG TAB PO SCH ×3 (09:09→20:09)
[2021-05-13] MEDS: Aspirin Chewable 81 MG TAB PO SCH (09:09)
[2021-05-13] MEDS: Senokot 8.6 MG TAB PER TUBE SCH ×2 (09:09→20:09)
[2021-05-13] MEDS: Thiamine 100 MG TAB PER TUBE SCH (09:09)
[2021-05-13] MEDS: Escitalopram Oxalate 10 mg Tablet PER TUBE SCH (09:09)
[2021-05-13] MEDS: Pantoprazole 40 MG GRANULES PACKET PER TUBE SCH (09:09)
[2021-05-13] MEDS: Folic Acid 1 MG TAB PER TUBE SCH (09:09)
[2021-05-13] MEDS: Midodrine HCl 5 MG TAB PO SCH ×2 (09:09→20:09)
[2021-05-13] MEDS ORDERED: Aspirin 81 mg Enteric Coated Tablet ONE (09:39)
[2021-05-14] MEDS: guaiFENesin/Codeine 200 mg/20 mg 10 ml Cup PO SCH ×4 (04:27→20:37)
[2021-05-14 06:24] LABS: Mean Corpuscular HGB CONC 33.9 g/dL (32.0-36.0); Mean Corpuscular Hemoglobin 29.5 pg (27.0-31.0); Mean Platelet Volume 7.2 fL (7.4-10.4); Platelet Count 256 thou/uL (130-400); RBC Distribution Width 14.4 % (11.5-14.5); Red Blood Cell (RBC) Count 3.38 mill/uL (4.70-6.10); White Blood Cell (WBC) Count 7.8 thou/uL (4.8-10.8)
[2021-05-14 06:30] LABS: Anion Gap 13 mmol/L (10-20); BUN (Urea Nitrogen) 17 mg/dL (8.9-20.6); Calc. Creatinine Clearance 146 mL/min (70-130); Calcium 9.5 mg/dL (7.8-10.44); Carbon Dioxide 28 mmol/L (22-29); Chloride 98 mmol/L (98-107); Glucose 151 mg/dL (70-105); Potassium 3.7 mmol/L (3.5-5.1); Sodium 135 mmol/L (136-145)
[2021-05-14 06:41] LABS: Band 2 % (5-11); Lymphocytes 35 % (21-51); MDiff Complete? YES; Monocytes 8 % (0-10); Myelocyte 1 % (0-0); Neutrophil 54 % (42-75)
[2021-05-14] MEDS: Budesonide 0.5 MG/2 ML NEB NEB SCH ×2 (07:19→18:24)
[2021-05-14] MEDS: Aspirin Chewable 81 MG TAB PO SCH (09:37)
[2021-05-14] MEDS: Polyethylene Glycol 3350 17 GM Packet PO SCH (09:37)
[2021-05-14] MEDS: Thiamine 100 MG TAB PER TUBE SCH (09:38)
[2021-05-14] MEDS: Midodrine HCl 5 MG TAB PO SCH ×2 (09:38→20:37)
[2021-05-14] MEDS: ALPRAZolam 1 MG TAB PO SCH ×3 (09:38→20:36)
[2021-05-14] MEDS: Escitalopram Oxalate 10 mg Tablet PER TUBE SCH (09:38)
[2021-05-14] MEDS: Senokot 8.6 MG TAB PER TUBE SCH ×2 (09:39→20:37)
[2021-05-14] MEDS: Folic Acid 1 MG TAB PER TUBE SCH (09:39)
[2021-05-14] MEDS: Pantoprazole 40 MG GRANULES PACKET PER TUBE SCH (09:39)
[2021-05-14] MEDS: Enoxaparin Sodium 40 MG/0.4 ML SYRINGE SC SCH ×2 (09:39→20:37)
[2021-05-14] MEDS: Scopolamine 1.5 mg/72 hour Patch TD SCH (09:40)
[2021-05-14] MEDS ORDERED: Iopamidol-370 76% 500 ML 1 ML ONE (12:15)
[2021-05-15] MEDS: guaiFENesin/Codeine 200 mg/20 mg 10 ml Cup PO SCH ×4 (04:10→20:25)
[2021-05-15] MEDS: Budesonide 0.5 MG/2 ML NEB NEB SCH (06:50)
[2021-05-15 08:04] LABS: Band 2 % (5-11); Eosinophils 3 % (0-10); Hemoglobin 10.1 g/dL (14.0-18.0); Lymphocytes 29 % (21-51); MDiff Complete? YES; Mean Corpuscular HGB CONC 33.8 g/dL (32.0-36.0); Mean Corpuscular Hemoglobin 29.3 pg (27.0-31.0); Mean Corpuscular Volume 86.8 fL (78.0-98.0); Mean Platelet Volume 6.8 fL (7.4-10.4); Monocytes 5 % (0-10); Neutrophil 61 % (42-75); Platelet Count 282 thou/uL (130-400); RBC Distribution Width 14.4 % (11.5-14.5); Red Blood Cell (RBC) Count 3.44 mill/uL (4.70-6.10); White Blood Cell (WBC) Count 7.4 thou/uL (4.8-10.8)
[2021-05-15] MEDS: Folic Acid 1 MG TAB PER TUBE SCH (08:35)
[2021-05-15] MEDS: Aspirin Chewable 81 MG TAB PO SCH (08:35)
[2021-05-15] MEDS: ALPRAZolam 1 MG TAB PO SCH ×3 (08:35→20:23)
[2021-05-15] MEDS: Pantoprazole 40 MG GRANULES PACKET PER TUBE SCH (08:35)
[2021-05-15] MEDS: Thiamine 100 MG TAB PER TUBE SCH (08:35)
[2021-05-15] MEDS: Midodrine HCl 5 MG TAB PO SCH ×2 (08:35→20:24)
[2021-05-15] MEDS: Escitalopram Oxalate 10 mg Tablet PER TUBE SCH (08:35)
[2021-05-15] MEDS: Enoxaparin Sodium 40 MG/0.4 ML SYRINGE SC SCH ×2 (08:36→20:23)
[2021-05-15] MEDS: Polyethylene Glycol 3350 17 GM Packet PO SCH (08:36)
[2021-05-15] MEDS: Senokot 8.6 MG TAB PER TUBE SCH ×2 (08:36→20:24)
[2021-05-15] MEDS ORDERED: Cefepime 1 GM in Sodium Chloride 0.9% 100 ML IVPB SCH ×2 (11:00→12:30)
[2021-05-15] MEDS ORDERED: Vancomycin 1 GM in Premix Bag 1 BAG IVPB SCH (12:00)
[2021-05-15] MEDS ORDERED: Magnevist 469MG/ML 20 ML VIAL ONE (12:38)
[2021-05-15] MEDS: Vancomycin 1 GM in Premix Bag 1 BAG IVPB SCH ×2 (14:19→20:24)
[2021-05-15] MEDS: Cefepime 2 GM in Sodium Chloride 0.9% 100 ML IVPB SCH (23:26)
[2021-05-16] MEDS: Vancomycin 1 GM in Premix Bag 1 BAG IVPB SCH ×2 (04:16→13:40)
[2021-05-16] MEDS: guaiFENesin/Codeine 200 mg/20 mg 10 ml Cup PO SCH ×4 (04:16→19:52)
[2021-05-16 06:40] LABS: Hemoglobin 10.1 g/dL (14.0-18.0); Mean Corpuscular Hemoglobin 28.1 pg (27.0-31.0); Mean Corpuscular Volume 85.1 fL (78.0-98.0); Mean Platelet Volume 7.3 fL (7.4-10.4); Platelet Count 275 thou/uL (130-400); RBC Distribution Width 14.4 % (11.5-14.5); Red Blood Cell (RBC) Count 3.61 mill/uL (4.70-6.10)
[2021-05-16 07:03] LABS: Anion Gap 11 mmol/L (10-20); BUN (Urea Nitrogen) 12 mg/dL (8.9-20.6); Calc. Creatinine Clearance 135 mL/min (70-130); Calcium 9.8 mg/dL (7.8-10.44); Carbon Dioxide 30 mmol/L (22-29); Chloride 99 mmol/L (98-107); Glucose 148 mg/dL (70-105); Potassium 3.9 mmol/L (3.5-5.1); Sodium 136 mmol/L (136-145)
[2021-05-16 07:54] LABS: Band 5 % (5-11); Eosinophils 2 % (0-10); Lymphocytes 15 % (21-51); MDiff Complete? YES; Monocytes 2 % (0-10); Neutrophil 76 % (42-75)
[2021-05-16] MEDS: Aspirin Chewable 81 MG TAB PO SCH (09:09)
[2021-05-16] MEDS: Thiamine 100 MG TAB PER TUBE SCH (09:09)
[2021-05-16] MEDS: Folic Acid 1 MG TAB PER TUBE SCH (09:09)
[2021-05-16] MEDS: Escitalopram Oxalate 10 mg Tablet PER TUBE SCH (09:09)
[2021-05-16] MEDS: Midodrine HCl 5 MG TAB PO SCH ×2 (09:09→19:51)
[2021-05-16] MEDS: Pantoprazole 40 MG GRANULES PACKET PER TUBE SCH (09:09)
[2021-05-16] MEDS: Senokot 8.6 MG TAB PER TUBE SCH ×2 (09:09→19:51)
[2021-05-16] MEDS: ALPRAZolam 1 MG TAB PO SCH ×3 (09:09→19:51)
[2021-05-16] MEDS: Polyethylene Glycol 3350 17 GM Packet PO SCH (09:10)
[2021-05-16] MEDS: Enoxaparin Sodium 40 MG/0.4 ML SYRINGE SC SCH ×2 (09:10→19:52)
[2021-05-16] MEDS: Ondansetron PF 4 MG/2 ML Vial IVP PRN (10:35)
[2021-05-16] MEDS: Cefepime 2 GM in Sodium Chloride 0.9% 100 ML IVPB SCH (11:46)
[2021-05-16] MEDS: cefTRIAXone\\ROCEPHIN 2 GM in Sodium Chloride 0.9% 100 ML IVPB SCH (23:27)
[2021-05-17] MEDS: guaiFENesin/Codeine 200 mg/20 mg 10 ml Cup PO SCH ×4 (04:59→21:13)
[2021-05-17] MEDS: Escitalopram Oxalate 10 mg Tablet PER TUBE SCH (09:22)
[2021-05-17] MEDS: Thiamine 100 MG TAB PER TUBE SCH (09:22)
[2021-05-17] MEDS: Senokot 8.6 MG TAB PER TUBE SCH ×2 (09:22→21:12)
[2021-05-17] MEDS: Midodrine HCl 5 MG TAB PO SCH ×2 (09:22→21:13)
[2021-05-17] MEDS: Folic Acid 1 MG TAB PER TUBE SCH (09:22)
[2021-05-17] MEDS: ALPRAZolam 1 MG TAB PO SCH ×3 (09:23→21:12)
[2021-05-17] MEDS: Aspirin Chewable 81 MG TAB PO SCH (09:23)
[2021-05-17] MEDS: Pantoprazole 40 MG GRANULES PACKET PER TUBE SCH (09:23)
[2021-05-17] MEDS: Enoxaparin Sodium 40 MG/0.4 ML SYRINGE SC SCH ×2 (09:23→21:13)
[2021-05-17] MEDS: Scopolamine 1.5 mg/72 hour Patch TD SCH (09:23)
[2021-05-17] MEDS: Polyethylene Glycol 3350 17 GM Packet PO SCH (09:24)
[2021-05-17 10:51] LABS: Band 3 % (5-11); Eosinophils 2 % (0-10); Hemoglobin 10.6 g/dL (14.0-18.0); Lymphocytes 28 % (21-51); MDiff Complete? YES; Mean Corpuscular HGB CONC 32.6 g/dL (32.0-36.0); Mean Corpuscular Hemoglobin 28.2 pg (27.0-31.0); Mean Corpuscular Volume 86.4 fL (78.0-98.0); Mean Platelet Volume 7.4 fL (7.4-10.4); Monocytes 8 % (0-10); Neutrophil 59 % (42-75); Platelet Count 286 thou/uL (130-400); Platelet Morphology Comment Appears Adequate; Polychromasia SLIGHT = 2-3 cells (100X) (0-2/hpf); RBC Distribution Width 14.5 % (11.5-14.5); Red Blood Cell (RBC) Count 3.78 mill/uL (4.70-6.10); White Blood Cell (WBC) Count 7.1 thou/uL (4.8-10.8)
[2021-05-18] MEDS: cefTRIAXone\\ROCEPHIN 2 GM in Sodium Chloride 0.9% 100 ML IVPB SCH (00:33)
[2021-05-18 04:43] LABS: Hemoglobin 10.3 g/dL (14.0-18.0); Mean Corpuscular HGB CONC 33.5 g/dL (32.0-36.0); Mean Corpuscular Hemoglobin 29.1 pg (27.0-31.0); Mean Platelet Volume 7.1 fL (7.4-10.4); Platelet Count 267 thou/uL (130-400); RBC Distribution Width 14.3 % (11.5-14.5); Red Blood Cell (RBC) Count 3.53 mill/uL (4.70-6.10)
[2021-05-18 04:52] LABS: Anion Gap 12 mmol/L (10-20); BUN (Urea Nitrogen) 16 mg/dL (8.9-20.6); Calc. Creatinine Clearance 151 mL/min (70-130); Calcium 9.6 mg/dL (7.8-10.44); Carbon Dioxide 30 mmol/L (22-29); Chloride 101 mmol/L (98-107); Glucose 94 mg/dL (70-105); Potassium 4.3 mmol/L (3.5-5.1); Sodium 139 mmol/L (136-145)
[2021-05-18] MEDS: guaiFENesin/Codeine 200 mg/20 mg 10 ml Cup PO SCH ×4 (04:59→21:12)
[2021-05-18 05:03] LABS: Band 3 % (5-11); Eosinophils 1 % (0-10); Lymphocytes 33 % (21-51); MDiff Complete? YES; Monocytes 10 % (0-10); Neutrophil 53 % (42-75)
[2021-05-18] MEDS: Folic Acid 1 MG TAB PER TUBE SCH (09:18)
[2021-05-18] MEDS: Thiamine 100 MG TAB PER TUBE SCH (09:18)
[2021-05-18] MEDS: Enoxaparin Sodium 40 MG/0.4 ML SYRINGE SC SCH ×2 (09:18→21:07)
[2021-05-18] MEDS: Pantoprazole 40 MG GRANULES PACKET PER TUBE SCH (09:19)
[2021-05-18] MEDS: Midodrine HCl 5 MG TAB PO SCH ×2 (09:19→21:06)
[2021-05-18] MEDS: ALPRAZolam 1 MG TAB PO SCH ×3 (09:19→21:06)
[2021-05-18] MEDS: Escitalopram Oxalate 10 mg Tablet PER TUBE SCH (09:19)
[2021-05-18] MEDS: Aspirin Chewable 81 MG TAB PO SCH (09:19)
[2021-05-18] MEDS: Senokot 8.6 MG TAB PER TUBE SCH ×2 (09:19→21:06)
[2021-05-18] MEDS: Polyethylene Glycol 3350 17 GM Packet PO SCH (09:19)
[2021-05-18] MEDS ORDERED: Heparin 30,000 units/30 ml VIAL ONE (14:07)
[2021-05-19] MEDS: cefTRIAXone\\ROCEPHIN 2 GM in Sodium Chloride 0.9% 100 ML IVPB SCH ×2 (00:46→23:45)
[2021-05-19] MEDS: guaiFENesin/Codeine 200 mg/20 mg 10 ml Cup PO SCH ×4 (04:07→20:57)
[2021-05-19 06:08] LABS: Hemoglobin 10.4 g/dL (14.0-18.0); Mean Corpuscular HGB CONC 33.5 g/dL (32.0-36.0); Mean Corpuscular Volume 86.3 fL (78.0-98.0); Mean Platelet Volume 7.4 fL (7.4-10.4); Platelet Count 251 thou/uL (130-400); RBC Distribution Width 14.3 % (11.5-14.5); Red Blood Cell (RBC) Count 3.59 mill/uL (4.70-6.10); White Blood Cell (WBC) Count 6.8 thou/uL (4.8-10.8)
[2021-05-19 08:13] LABS: Band 5 % (5-11); Eosinophils 2 % (0-10); Lymphocytes 31 % (21-51); MDiff Complete? YES; Monocytes 5 % (0-10); Neutrophil 56 % (42-75); Platelet Morphology Comment Appears Adequate; Polychromasia SLIGHT = 2-3 cells (100X) (0-2/hpf)
[2021-05-19] MEDS: Thiamine 100 MG TAB PER TUBE SCH (08:31)
[2021-05-19] MEDS: Aspirin Chewable 81 MG TAB PO SCH (08:31)
[2021-05-19] MEDS: Enoxaparin Sodium 40 MG/0.4 ML SYRINGE SC SCH ×2 (08:31→20:58)
[2021-05-19] MEDS: Pantoprazole 40 MG GRANULES PACKET PER TUBE SCH (08:31)
[2021-05-19] MEDS: Folic Acid 1 MG TAB PER TUBE SCH (08:31)
[2021-05-19] MEDS: Senokot 8.6 MG TAB PER TUBE SCH ×2 (08:31→20:58)
[2021-05-19] MEDS: Midodrine HCl 5 MG TAB PO SCH ×2 (08:31→20:58)
[2021-05-19] MEDS: Escitalopram Oxalate 10 mg Tablet PER TUBE SCH (08:32)
[2021-05-19] MEDS: Polyethylene Glycol 3350 17 GM Packet PO SCH (08:32)
[2021-05-19] MEDS: ALPRAZolam 1 MG TAB PO SCH ×3 (08:41→20:58)
[2021-05-20] MEDS: guaiFENesin/Codeine 200 mg/20 mg 10 ml Cup PO SCH ×4 (04:36→20:46)
[2021-05-20 07:26] LABS: Hemoglobin 10.4 g/dL (14.0-18.0); Mean Corpuscular HGB CONC 33.3 g/dL (32.0-36.0); Mean Corpuscular Hemoglobin 28.8 pg (27.0-31.0); Mean Corpuscular Volume 86.6 fL (78.0-98.0); Mean Platelet Volume 7.9 fL (7.4-10.4); Platelet Count 236 thou/uL (130-400); RBC Distribution Width 14.3 % (11.5-14.5); Red Blood Cell (RBC) Count 3.62 mill/uL (4.70-6.10); White Blood Cell (WBC) Count 6.1 thou/uL (4.8-10.8)
[2021-05-20 07:34] LABS: Anion Gap 13 mmol/L (10-20); BUN (Urea Nitrogen) 14 mg/dL (8.9-20.6); Calc. Creatinine Clearance 156 mL/min (70-130); Calcium 9.7 mg/dL (7.8-10.44); Carbon Dioxide 29 mmol/L (22-29); Chloride 101 mmol/L (98-107); Glucose 138 mg/dL (70-105); Potassium 3.7 mmol/L (3.5-5.1); Sodium 139 mmol/L (136-145)
[2021-05-20] MEDS: Enoxaparin Sodium 40 MG/0.4 ML SYRINGE SC SCH ×2 (07:53→20:46)
[2021-05-20] MEDS: Aspirin Chewable 81 MG TAB PO SCH (07:54)
[2021-05-20] MEDS: ALPRAZolam 1 MG TAB PO SCH ×3 (07:54→20:47)
[2021-05-20] MEDS: Senokot 8.6 MG TAB PER TUBE SCH ×2 (07:54→20:47)
[2021-05-20] MEDS: Midodrine HCl 5 MG TAB PO SCH ×2 (07:54→20:47)
[2021-05-20] MEDS: Thiamine 100 MG TAB PER TUBE SCH (07:55)
[2021-05-20] MEDS: Folic Acid 1 MG TAB PER TUBE SCH (07:55)
[2021-05-20] MEDS: Escitalopram Oxalate 10 mg Tablet PER TUBE SCH (07:55)
[2021-05-20] MEDS: Pantoprazole 40 MG GRANULES PACKET PER TUBE SCH (07:56)
[2021-05-20] MEDS: Polyethylene Glycol 3350 17 GM Packet PO SCH (07:56)
[2021-05-20] MEDS: Scopolamine 1.5 mg/72 hour Patch TD SCH (10:01)
[2021-05-20 10:07] LABS: Band 3 % (5-11); Eosinophils 1 % (0-10); Lymphocytes 35 % (21-51); MDiff Complete? YES; Monocytes 5 % (0-10); Neutrophil 54 % (42-75); Platelet Morphology Comment Appears Adequate; Polychromasia SLIGHT = 2-3 cells (100X) (0-2/hpf)
[2021-05-21] MEDS: cefTRIAXone\\ROCEPHIN 2 GM in Sodium Chloride 0.9% 100 ML IVPB SCH ×2 (00:04→23:19)
[2021-05-21] MEDS: guaiFENesin/Codeine 200 mg/20 mg 10 ml Cup PO SCH ×4 (04:04→21:17)
[2021-05-21 06:10] LABS: Eosinophils 1 % (0-10); Hemoglobin 10.3 g/dL (14.0-18.0); Lymphocytes 48 % (21-51); MDiff Complete? YES; Mean Corpuscular HGB CONC 33.7 g/dL (32.0-36.0); Mean Corpuscular Hemoglobin 29.3 pg (27.0-31.0); Mean Corpuscular Volume 86.9 fL (78.0-98.0); Mean Platelet Volume 7.6 fL (7.4-10.4); Monocytes 13 % (0-10); Neutrophil 38 % (42-75); Platelet Count 225 thou/uL (130-400); Platelet Morphology Comment Appears Adequate; RBC Distribution Width 14.5 % (11.5-14.5); RBC Morphology Normal; Red Blood Cell (RBC) Count 3.51 mill/uL (4.70-6.10); White Blood Cell (WBC) Count 5.9 thou/uL (4.8-10.8)
[2021-05-21] MEDS: Midodrine HCl 5 MG TAB PO SCH ×2 (09:10→20:29)
[2021-05-21] MEDS: Polyethylene Glycol 3350 17 GM Packet PO SCH (09:10)
[2021-05-21] MEDS: Senokot 8.6 MG TAB PER TUBE SCH ×2 (09:11→20:30)
[2021-05-21] MEDS: Folic Acid 1 MG TAB PER TUBE SCH (09:11)
[2021-05-21] MEDS: Thiamine 100 MG TAB PER TUBE SCH (09:11)
[2021-05-21] MEDS: ALPRAZolam 1 MG TAB PO SCH ×3 (09:11→20:29)
[2021-05-21] MEDS: Escitalopram Oxalate 10 mg Tablet PER TUBE SCH (09:11)
[2021-05-21] MEDS: Pantoprazole 40 MG GRANULES PACKET PER TUBE SCH (09:12)
[2021-05-21] MEDS: Enoxaparin Sodium 40 MG/0.4 ML SYRINGE SC SCH ×2 (09:12→20:29)
[2021-05-21] MEDS: Aspirin Chewable 81 MG TAB PO SCH (09:12)
[2021-05-22] MEDS: guaiFENesin/Codeine 200 mg/20 mg 10 ml Cup PO SCH ×4 (04:04→21:04)
[2021-05-22 05:02] LABS: Anion Gap 13 mmol/L (10-20); BUN (Urea Nitrogen) 13 mg/dL (8.9-20.6); Calc. Creatinine Clearance 148 mL/min (70-130); Calcium 10.2 mg/dL (7.8-10.44); Carbon Dioxide 29 mmol/L (22-29); Chloride 102 mmol/L (98-107); Glucose 95 mg/dL (70-105); Potassium 4.1 mmol/L (3.5-5.1); Sodium 140 mmol/L (136-145)
[2021-05-22 05:21] LABS: Eosinophils 3 % (0-10); Hemoglobin 10.6 g/dL (14.0-18.0); Lymphocytes 41 % (21-51); MDiff Complete? YES; Mean Corpuscular HGB CONC 33.2 g/dL (32.0-36.0); Mean Corpuscular Hemoglobin 29.1 pg (27.0-31.0); Mean Corpuscular Volume 87.7 fL (78.0-98.0); Mean Platelet Volume 7.6 fL (7.4-10.4); Monocytes 8 % (0-10); Neutrophil 48 % (42-75); Platelet Count 212 thou/uL (130-400); Platelet Morphology Comment Appears Adequate; RBC Distribution Width 14.2 % (11.5-14.5); RBC Morphology Normal; Red Blood Cell (RBC) Count 3.65 mill/uL (4.70-6.10)
[2021-05-22] MEDS: Aspirin Chewable 81 MG TAB PO SCH (08:07)
[2021-05-22] MEDS: ALPRAZolam 1 MG TAB PO SCH ×3 (08:07→21:10)
[2021-05-22] MEDS: Thiamine 100 MG TAB PER TUBE SCH (08:07)
[2021-05-22] MEDS: Escitalopram Oxalate 10 mg Tablet PER TUBE SCH (08:07)
[2021-05-22] MEDS: Senokot 8.6 MG TAB PER TUBE SCH ×2 (08:07→21:04)
[2021-05-22] MEDS: Pantoprazole 40 MG GRANULES PACKET PER TUBE SCH (08:07)
[2021-05-22] MEDS: Enoxaparin Sodium 40 MG/0.4 ML SYRINGE SC SCH ×2 (08:08→21:04)
[2021-05-22] MEDS: Folic Acid 1 MG TAB PER TUBE SCH (08:08)
[2021-05-22] MEDS: Midodrine HCl 5 MG TAB PO SCH ×2 (08:08→21:04)
[2021-05-22] MEDS: Polyethylene Glycol 3350 17 GM Packet PO SCH (08:08)
[2021-05-23] MEDS: cefTRIAXone\\ROCEPHIN 2 GM in Sodium Chloride 0.9% 100 ML IVPB SCH ×2 (00:20→23:20)
[2021-05-23] MEDS: guaiFENesin/Codeine 200 mg/20 mg 10 ml Cup PO SCH ×4 (04:12→21:05)
[2021-05-23 07:20] LABS: Hemoglobin 10.5 g/dL (14.0-18.0); Mean Corpuscular HGB CONC 32.9 g/dL (32.0-36.0); Mean Corpuscular Hemoglobin 28.8 pg (27.0-31.0); Mean Corpuscular Volume 87.6 fL (78.0-98.0); Platelet Count 204 thou/uL (130-400); RBC Distribution Width 14.4 % (11.5-14.5); Red Blood Cell (RBC) Count 3.63 mill/uL (4.70-6.10); White Blood Cell (WBC) Count 8.8 thou/uL (4.8-10.8)
[2021-05-23 07:21] LABS: Mean Platelet Volume 8.2 fL (7.4-10.4)
[2021-05-23] MEDS: Enoxaparin Sodium 40 MG/0.4 ML SYRINGE SC SCH ×2 (08:32→21:05)
[2021-05-23] MEDS: Aspirin Chewable 81 MG TAB PO SCH (08:32)
[2021-05-23] MEDS: Escitalopram Oxalate 10 mg Tablet PER TUBE SCH (08:32)
[2021-05-23] MEDS: ALPRAZolam 1 MG TAB PO SCH ×3 (08:32→21:05)
[2021-05-23] MEDS: Folic Acid 1 MG TAB PER TUBE SCH (08:32)
[2021-05-23] MEDS: Senokot 8.6 MG TAB PER TUBE SCH ×2 (08:32→21:05)
[2021-05-23] MEDS: Midodrine HCl 5 MG TAB PO SCH ×2 (08:32→21:05)
[2021-05-23] MEDS: Thiamine 100 MG TAB PER TUBE SCH (08:32)
[2021-05-23] MEDS: Polyethylene Glycol 3350 17 GM Packet PO SCH (08:33)
[2021-05-23] MEDS: Pantoprazole 40 MG GRANULES PACKET PER TUBE SCH (08:33)
[2021-05-23 08:52] LABS: Band 1 % (5-11); Eosinophils 4 % (0-10); Lymphocytes 22 % (21-51); MDiff Complete? YES; Monocytes 7 % (0-10); Neutrophil 64 % (42-75); Platelet Morphology Comment Appears Adequate; Reactive Lymphocytes 2 % (0-10)
[2021-05-23] MEDS: Scopolamine 1.5 mg/72 hour Patch TD SCH (09:01)
[2021-05-24] MEDS: guaiFENesin/Codeine 200 mg/20 mg 10 ml Cup PO SCH ×4 (04:15→21:12)
[2021-05-24 05:15] LABS: Eosinophils 4 % (0-10); Hemoglobin 10.4 g/dL (14.0-18.0); Lymphocytes 46 % (21-51); MDiff Complete? YES; Mean Corpuscular HGB CONC 33.6 g/dL (32.0-36.0); Mean Corpuscular Hemoglobin 29.3 pg (27.0-31.0); Mean Corpuscular Volume 87.3 fL (78.0-98.0); Mean Platelet Volume 7.7 fL (7.4-10.4); Monocytes 8 % (0-10); Neutrophil 42 % (42-75); Platelet Count 189 thou/uL (130-400); Platelet Morphology Comment Appears Adequate; RBC Distribution Width 14.1 % (11.5-14.5); RBC Morphology Normal; Red Blood Cell (RBC) Count 3.56 mill/uL (4.70-6.10); White Blood Cell (WBC) Count 5.7 thou/uL (4.8-10.8)
[2021-05-24 05:28] LABS: Anion Gap 13 mmol/L (10-20); BUN (Urea Nitrogen) 14 mg/dL (8.9-20.6); Calc. Creatinine Clearance 154 mL/min (70-130); Calcium 9.9 mg/dL (7.8-10.44); Carbon Dioxide 30 mmol/L (22-29); Chloride 101 mmol/L (98-107); Glucose 104 mg/dL (70-105); Potassium 4.1 mmol/L (3.5-5.1); Sodium 140 mmol/L (136-145)
[2021-05-24] MEDS: Aspirin Chewable 81 MG TAB PO SCH (08:44)
[2021-05-24] MEDS: Thiamine 100 MG TAB PER TUBE SCH (08:44)
[2021-05-24] MEDS: Escitalopram Oxalate 10 mg Tablet PER TUBE SCH (08:44)
[2021-05-24] MEDS: Folic Acid 1 MG TAB PER TUBE SCH (08:44)
[2021-05-24] MEDS: ALPRAZolam 1 MG TAB PO SCH ×3 (08:44→21:13)
[2021-05-24] MEDS: Pantoprazole 40 MG GRANULES PACKET PER TUBE SCH (08:44)
[2021-05-24] MEDS: Polyethylene Glycol 3350 17 GM Packet PO SCH (08:44)
[2021-05-24] MEDS: Senokot 8.6 MG TAB PER TUBE SCH ×2 (08:44→21:13)
[2021-05-24] MEDS: Enoxaparin Sodium 40 MG/0.4 ML SYRINGE SC SCH ×2 (08:45→21:13)
[2021-05-24] MEDS: Midodrine HCl 5 MG TAB PO SCH ×2 (08:46→21:13)
[2021-05-25] MEDS: cefTRIAXone\\ROCEPHIN 2 GM in Sodium Chloride 0.9% 100 ML IVPB SCH ×2 (00:59→23:30)
[2021-05-25] MEDS: guaiFENesin/Codeine 200 mg/20 mg 10 ml Cup PO SCH ×4 (03:26→20:55)
[2021-05-25 07:07] LABS: Hemoglobin 10.2 g/dL (14.0-18.0); Mean Corpuscular HGB CONC 32.9 g/dL (32.0-36.0); Mean Corpuscular Hemoglobin 28.6 pg (27.0-31.0); Mean Corpuscular Volume 86.8 fL (78.0-98.0); Mean Platelet Volume 8.1 fL (7.4-10.4); Platelet Count 192 thou/uL (130-400); RBC Distribution Width 14.2 % (11.5-14.5); Red Blood Cell (RBC) Count 3.56 mill/uL (4.70-6.10); White Blood Cell (WBC) Count 5.8 thou/uL (4.8-10.8)
[2021-05-25 07:55] LABS: Band 3 % (5-11); Lymphocytes 39 % (21-51); MDiff Complete? YES; Monocytes 12 % (0-10); Neutrophil 44 % (42-75); Platelet Morphology Comment Appears Adequate; RBC Morphology Normal; Reactive Lymphocytes 1 % (0-10)
[2021-05-25] MEDS: Aspirin Chewable 81 MG TAB PO SCH (08:34)
[2021-05-25] MEDS: ALPRAZolam 1 MG TAB PO SCH ×3 (08:34→20:52)
[2021-05-25] MEDS: Folic Acid 1 MG TAB PER TUBE SCH (08:34)
[2021-05-25] MEDS: Polyethylene Glycol 3350 17 GM Packet PO SCH (08:34)
[2021-05-25] MEDS: Escitalopram Oxalate 10 mg Tablet PER TUBE SCH (08:34)
[2021-05-25] MEDS: Senokot 8.6 MG TAB PER TUBE SCH ×2 (08:34→20:52)
[2021-05-25] MEDS: Enoxaparin Sodium 40 MG/0.4 ML SYRINGE SC SCH ×2 (08:34→20:53)
[2021-05-25] MEDS: Midodrine HCl 5 MG TAB PO SCH ×2 (08:34→20:52)
[2021-05-25] MEDS: Thiamine 100 MG TAB PER TUBE SCH (08:34)
[2021-05-25] MEDS: Pantoprazole 40 MG GRANULES PACKET PER TUBE SCH (08:35)
[2021-05-26] MEDS: guaiFENesin/Codeine 200 mg/20 mg 10 ml Cup PO SCH ×4 (03:29→20:35)
[2021-05-26 05:12] LABS: Calcium 9.6 mg/dL (7.8-10.44); Chloride 101 mmol/L (98-107); Glucose 138 mg/dL (70-105); Potassium 3.9 mmol/L (3.5-5.1); Sodium 139 mmol/L (136-145)
[2021-05-26 05:19] LABS: Anion Gap 12 mmol/L (10-20); BUN (Urea Nitrogen) 12 mg/dL (8.9-20.6); Calc. Creatinine Clearance 156 mL/min (70-130); Carbon Dioxide 30 mmol/L (22-29)
[2021-05-26 06:01] LABS: Eosinophils 2 % (0-10); Hemoglobin 9.8 g/dL (14.0-18.0); Lymphocytes 52 % (21-51); MDiff Complete? YES; Mean Corpuscular HGB CONC 33.4 g/dL (32.0-36.0); Mean Corpuscular Hemoglobin 28.7 pg (27.0-31.0); Mean Corpuscular Volume 86.1 fL (78.0-98.0); Mean Platelet Volume 10.4 fL (7.4-10.4); Monocytes 10 % (0-10); Neutrophil 36 % (42-75); Platelet Count 120 thou/uL (130-400); Platelet Morphology Comment Appears Decreased; RBC Distribution Width 14.1 % (11.5-14.5); RBC Morphology Normal; Red Blood Cell (RBC) Count 3.42 mill/uL (4.70-6.10); White Blood Cell (WBC) Count 5.2 thou/uL (4.8-10.8)
[2021-05-26] MEDS: Polyethylene Glycol 3350 17 GM Packet PO SCH (09:13)
[2021-05-26] MEDS: Scopolamine 1.5 mg/72 hour Patch TD SCH (09:13)
[2021-05-26] MEDS: Enoxaparin Sodium 40 MG/0.4 ML SYRINGE SC SCH ×2 (09:13→20:35)
[2021-05-26] MEDS: Pantoprazole 40 MG GRANULES PACKET PER TUBE SCH (09:14)
[2021-05-26] MEDS: Thiamine 100 MG TAB PER TUBE SCH (09:14)
[2021-05-26] MEDS: Midodrine HCl 5 MG TAB PO SCH ×2 (09:14→20:35)
[2021-05-26] MEDS: Senokot 8.6 MG TAB PER TUBE SCH ×2 (09:14→20:35)
[2021-05-26] MEDS: Aspirin Chewable 81 MG TAB PO SCH (09:14)
[2021-05-26] MEDS: Escitalopram Oxalate 10 mg Tablet PER TUBE SCH (09:14)
[2021-05-26] MEDS: Folic Acid 1 MG TAB PER TUBE SCH (09:14)
[2021-05-26] MEDS: ALPRAZolam 1 MG TAB PO SCH ×3 (09:15→20:34)
[2021-05-26] MEDS: cefTRIAXone\\ROCEPHIN 2 GM in Sodium Chloride 0.9% 100 ML IVPB SCH (23:45)
[2021-05-27] MEDS: guaiFENesin/Codeine 200 mg/20 mg 10 ml Cup PO SCH ×4 (04:36→20:43)
[2021-05-27 05:02] LABS: Hemoglobin 10.1 g/dL (14.0-18.0); Mean Corpuscular HGB CONC 34.8 g/dL (32.0-36.0); Mean Corpuscular Hemoglobin 30.3 pg (27.0-31.0); Mean Platelet Volume 10.1 fL (7.4-10.4); Platelet Count 114 thou/uL (130-400); RBC Distribution Width 14.3 % (11.5-14.5); Red Blood Cell (RBC) Count 3.34 mill/uL (4.70-6.10); White Blood Cell (WBC) Count 6.5 thou/uL (4.8-10.8)
[2021-05-27 05:03] LABS: Band 3 % (5-11); Eosinophils 3 % (0-10); Lymphocytes 39 % (21-51); MDiff Complete? YES; Monocytes 7 % (0-10); Neutrophil 46 % (42-75); Platelet Morphology Comment Appears Decreased; RBC Morphology Normal
[2021-05-27] MEDS: Enoxaparin Sodium 40 MG/0.4 ML SYRINGE SC SCH ×2 (09:36→21:35)
[2021-05-27] MEDS: Midodrine HCl 5 MG TAB PO SCH ×2 (09:36→20:42)
[2021-05-27] MEDS: Polyethylene Glycol 3350 17 GM Packet PO SCH (09:36)
[2021-05-27] MEDS: Aspirin Chewable 81 MG TAB PO SCH (09:37)
[2021-05-27] MEDS: Senokot 8.6 MG TAB PER TUBE SCH ×2 (09:37→20:42)
[2021-05-27] MEDS: Pantoprazole 40 MG GRANULES PACKET PER TUBE SCH (09:37)
[2021-05-27] MEDS: Escitalopram Oxalate 10 mg Tablet PER TUBE SCH (09:37)
[2021-05-27] MEDS: ALPRAZolam 1 MG TAB PO SCH ×3 (09:37→20:42)
[2021-05-27] MEDS: Thiamine 100 MG TAB PER TUBE SCH (09:37)
[2021-05-27] MEDS: Folic Acid 1 MG TAB PER TUBE SCH (09:37)
[2021-05-27] MEDS: cefTRIAXone\\ROCEPHIN 2 GM in Sodium Chloride 0.9% 100 ML IVPB SCH (23:40)
[2021-05-28 04:10] LABS: Hemoglobin 10.1 g/dL (14.0-18.0); Mean Corpuscular HGB CONC 33.3 g/dL (32.0-36.0); Mean Corpuscular Hemoglobin 28.7 pg (27.0-31.0); Mean Corpuscular Volume 86.2 fL (78.0-98.0); Mean Platelet Volume 9.6 fL (7.4-10.4); Platelet Count 144 thou/uL (130-400); RBC Distribution Width 14.3 % (11.5-14.5); Red Blood Cell (RBC) Count 3.51 mill/uL (4.70-6.10); White Blood Cell (WBC) Count 6.6 thou/uL (4.8-10.8)
[2021-05-28] MEDS: guaiFENesin/Codeine 200 mg/20 mg 10 ml Cup PO SCH ×4 (04:22→21:07)
[2021-05-28 04:43] LABS: Anion Gap 11 mmol/L (10-20); BUN (Urea Nitrogen) 10 mg/dL (8.9-20.6); Calc. Creatinine Clearance 156 mL/min (70-130); Calcium 10.5 mg/dL (7.8-10.44); Carbon Dioxide 30 mmol/L (22-29); Chloride 102 mmol/L (98-107); Glucose 95 mg/dL (70-105); Sodium 139 mmol/L (136-145)
[2021-05-28 05:00] LABS: Band 3 % (5-11); Eosinophils 2 % (0-10); Lymphocytes 48 % (21-51); MDiff Complete? YES; Monocytes 10 % (0-10); Neutrophil 37 % (42-75)
[2021-05-28] MEDS: Pantoprazole 40 MG GRANULES PACKET PER TUBE SCH (08:53)
[2021-05-28] MEDS: Aspirin Chewable 81 MG TAB PO SCH (08:53)
[2021-05-28] MEDS: Folic Acid 1 MG TAB PER TUBE SCH (08:53)
[2021-05-28] MEDS: Midodrine HCl 5 MG TAB PO SCH ×2 (08:53→21:07)
[2021-05-28] MEDS: Thiamine 100 MG TAB PER TUBE SCH (08:53)
[2021-05-28] MEDS: Senokot 8.6 MG TAB PER TUBE SCH ×2 (08:53→21:07)
[2021-05-28] MEDS: ALPRAZolam 1 MG TAB PO SCH ×3 (08:53→21:07)
[2021-05-28] MEDS: Polyethylene Glycol 3350 17 GM Packet PO SCH (08:54)
[2021-05-28] MEDS: Enoxaparin Sodium 40 MG/0.4 ML SYRINGE SC SCH ×2 (08:54→21:07)
[2021-05-28] MEDS: Escitalopram Oxalate 10 mg Tablet PER TUBE SCH (08:54)
[2021-05-28] MEDS: cefTRIAXone\\ROCEPHIN 2 GM in Sodium Chloride 0.9% 100 ML IVPB SCH (23:21)
[2021-05-29] MEDS: guaiFENesin/Codeine 200 mg/20 mg 10 ml Cup PO SCH ×4 (04:46→20:58)
[2021-05-29 06:20] LABS: Hemoglobin 10.8 g/dL (14.0-18.0); Mean Corpuscular HGB CONC 34.2 g/dL (32.0-36.0); Mean Corpuscular Hemoglobin 29.8 pg (27.0-31.0); Platelet Count 165 thou/uL (130-400); RBC Distribution Width 14.4 % (11.5-14.5); Red Blood Cell (RBC) Count 3.63 mill/uL (4.70-6.10)
[2021-05-29 06:24] LABS: Band 6 % (5-11); Eosinophils 4 % (0-10); Lymphocytes 34 % (21-51); MDiff Complete? YES; Monocytes 11 % (0-10); Neutrophil 45 % (42-75)
[2021-05-29] MEDS: Aspirin Chewable 81 MG TAB PO SCH (08:43)
[2021-05-29] MEDS: Midodrine HCl 5 MG TAB PO SCH ×2 (08:43→20:58)
[2021-05-29] MEDS: Senokot 8.6 MG TAB PER TUBE SCH ×2 (08:43→21:08)
[2021-05-29] MEDS: Escitalopram Oxalate 10 mg Tablet PER TUBE SCH (08:43)
[2021-05-29] MEDS: Folic Acid 1 MG TAB PER TUBE SCH (08:43)
[2021-05-29] MEDS: ALPRAZolam 1 MG TAB PO SCH ×3 (08:43→20:58)
[2021-05-29] MEDS: Pantoprazole 40 MG GRANULES PACKET PER TUBE SCH (08:43)
[2021-05-29] MEDS: Thiamine 100 MG TAB PER TUBE SCH (08:43)
[2021-05-29] MEDS: Polyethylene Glycol 3350 17 GM Packet PO SCH (08:44)
[2021-05-29] MEDS: Enoxaparin Sodium 40 MG/0.4 ML SYRINGE SC SCH ×2 (08:44→21:18)
[2021-05-29] MEDS: Scopolamine 1.5 mg/72 hour Patch TD SCH (10:50)
[2021-05-29] MEDS: Acetaminophen 650 MG/20.3 ML UDCUP PER TUBE PRN ×2 (16:59→21:05)
[2021-05-29] MEDS: cefTRIAXone\\ROCEPHIN 2 GM in Sodium Chloride 0.9% 100 ML IVPB SCH (22:08)
[2021-05-30] MEDS: guaiFENesin/Codeine 200 mg/20 mg 10 ml Cup PO SCH ×4 (04:49→22:08)
[2021-05-30] MEDS: Midodrine HCl 5 MG TAB PO SCH ×2 (08:47→21:55)
[2021-05-30] MEDS: Pantoprazole 40 MG GRANULES PACKET PER TUBE SCH (08:47)
[2021-05-30] MEDS: Aspirin Chewable 81 MG TAB PO SCH (08:47)
[2021-05-30] MEDS: Folic Acid 1 MG TAB PER TUBE SCH (08:47)
[2021-05-30] MEDS: Escitalopram Oxalate 10 mg Tablet PER TUBE SCH (08:47)
[2021-05-30] MEDS: Thiamine 100 MG TAB PER TUBE SCH (08:47)
[2021-05-30] MEDS: Polyethylene Glycol 3350 17 GM Packet PO SCH (08:48)
[2021-05-30] MEDS: ALPRAZolam 1 MG TAB PO SCH ×3 (08:48→21:48)
[2021-05-30] MEDS: Enoxaparin Sodium 40 MG/0.4 ML SYRINGE SC SCH ×2 (08:48→21:47)
[2021-05-30] MEDS: Senokot 8.6 MG TAB PER TUBE SCH ×2 (08:48→21:48)
[2021-05-30] MEDS: Acetaminophen 650 MG/20.3 ML UDCUP PER TUBE PRN ×2 (09:57→17:37)
[2021-05-30 10:28] LABS: Band 7 % (5-11); Hemoglobin 11.7 g/dL (14.0-18.0); Lymphocytes 23 % (21-51); MDiff Complete? YES; Mean Corpuscular HGB CONC 35.3 g/dL (32.0-36.0); Mean Corpuscular Hemoglobin 30.5 pg (27.0-31.0); Mean Corpuscular Volume 86.4 fL (78.0-98.0); Monocytes 6 % (0-10); Neutrophil 55 % (42-75); Platelet Count 211 thou/uL (130-400); Platelet Morphology Comment Appears Adequate; Polychromasia SLIGHT = 2-3 cells (100X) (0-2/hpf); RBC Distribution Width 14.4 % (11.5-14.5); Reactive Lymphocytes 9 % (0-10); Red Blood Cell (RBC) Count 3.83 mill/uL (4.70-6.10); White Blood Cell (WBC) Count 7.5 thou/uL (4.8-10.8)
[2021-05-30 11:47] LABS: Chloride 104 mmol/L (98-107)
[2021-05-30 11:48] LABS: Calcium 9.8 mg/dL (7.8-10.44); Potassium 3.8 mmol/L (3.5-5.1); Sodium 136 mmol/L (136-145)
[2021-05-30 11:49] LABS: Glucose 146 mg/dL (70-105)
[2021-05-30 11:50] LABS: Anion Gap 13 mmol/L (10-20); Carbon Dioxide 23 mmol/L (22-29)
[2021-05-30 11:52] LABS: Calc. Creatinine Clearance 157 mL/min (70-130)
[2021-05-30 11:53] LABS: BUN (Urea Nitrogen) 12 mg/dL (8.9-20.6)
[2021-05-30] MEDS: cefTRIAXone\\ROCEPHIN 2 GM in Sodium Chloride 0.9% 100 ML IVPB SCH (22:07)
[2021-05-30] MEDS ORDERED: Melatonin 3 MG TAB PO PRN (23:11)
[2021-05-31] MEDS: Guaifenesin DM 100-10/5 ML UDCUP PO PRN (04:00)
[2021-05-31] MEDS: guaiFENesin/Codeine 200 mg/20 mg 10 ml Cup PO SCH ×4 (04:14→21:06)
[2021-05-31 04:23] LABS: Hemoglobin 11.3 g/dL (14.0-18.0); Mean Corpuscular HGB CONC 33.4 g/dL (32.0-36.0); Mean Corpuscular Volume 86.6 fL (78.0-98.0); Mean Platelet Volume 9.4 fL (7.4-10.4); Platelet Count 186 thou/uL (130-400); RBC Distribution Width 14.5 % (11.5-14.5); Red Blood Cell (RBC) Count 3.89 mill/uL (4.70-6.10); White Blood Cell (WBC) Count 7.7 thou/uL (4.8-10.8)
[2021-05-31 04:54] LABS: Band 6 % (5-11); Eosinophils 3 % (0-10); Lymphocytes 37 % (21-51); MDiff Complete? YES; Monocytes 5 % (0-10); Neutrophil 49 % (42-75)
[2021-05-31] MEDS: Senokot 8.6 MG TAB PER TUBE SCH ×2 (08:58→21:16)
[2021-05-31] MEDS: Enoxaparin Sodium 40 MG/0.4 ML SYRINGE SC SCH ×2 (08:58→21:07)
[2021-05-31] MEDS: Thiamine 100 MG TAB PER TUBE SCH (08:59)
[2021-05-31] MEDS: ALPRAZolam 1 MG TAB PO SCH ×3 (08:59→21:07)
[2021-05-31] MEDS: Pantoprazole 40 MG GRANULES PACKET PER TUBE SCH (08:59)
[2021-05-31] MEDS: Midodrine HCl 5 MG TAB PO SCH ×2 (08:59→21:07)
[2021-05-31] MEDS: Escitalopram Oxalate 10 mg Tablet PER TUBE SCH (08:59)
[2021-05-31] MEDS: Polyethylene Glycol 3350 17 GM Packet PO SCH (08:59)
[2021-05-31] MEDS: Folic Acid 1 MG TAB PER TUBE SCH (08:59)
[2021-05-31] MEDS: Aspirin Chewable 81 MG TAB PO SCH (08:59)
[2021-05-31] MEDS: Ondansetron PF 4 MG/2 ML Vial IVP PRN (12:43)
[2021-05-31] MEDS: cefTRIAXone\\ROCEPHIN 2 GM in Sodium Chloride 0.9% 100 ML IVPB SCH (22:02)
[2021-06-01] MEDS: guaiFENesin/Codeine 200 mg/20 mg 10 ml Cup PO SCH ×4 (03:15→20:44)
[2021-06-01] MEDS: Pantoprazole 40 MG GRANULES PACKET PER TUBE SCH (08:25)
[2021-06-01] MEDS: Enoxaparin Sodium 40 MG/0.4 ML SYRINGE SC SCH ×2 (08:25→20:43)
[2021-06-01] MEDS: Escitalopram Oxalate 10 mg Tablet PER TUBE SCH (08:25)
[2021-06-01] MEDS: Scopolamine 1.5 mg/72 hour Patch TD SCH (08:25)
[2021-06-01] MEDS: Folic Acid 1 MG TAB PER TUBE SCH (08:25)
[2021-06-01] MEDS: Aspirin Chewable 81 MG TAB PO SCH (08:25)
[2021-06-01] MEDS: ALPRAZolam 1 MG TAB PO SCH ×3 (08:25→20:43)
[2021-06-01] MEDS: Thiamine 100 MG TAB PER TUBE SCH (08:25)
[2021-06-01] MEDS: Midodrine HCl 5 MG TAB PO SCH ×2 (08:25→20:43)
[2021-06-01] MEDS: Polyethylene Glycol 3350 17 GM Packet PO SCH (08:26)
[2021-06-01] MEDS: Senokot 8.6 MG TAB PER TUBE SCH ×2 (08:26→20:41)
[2021-06-01] MEDS: cefTRIAXone\\ROCEPHIN 2 GM in Sodium Chloride 0.9% 100 ML IVPB SCH (22:22)
[2021-06-02] MEDS: guaiFENesin/Codeine 200 mg/20 mg 10 ml Cup PO SCH ×4 (04:35→23:25)
[2021-06-02] MEDS: Polyethylene Glycol 3350 17 GM Packet PO SCH (08:52)
[2021-06-02] MEDS: Senokot 8.6 MG TAB PER TUBE SCH ×2 (08:52→21:21)
[2021-06-02] MEDS: Midodrine HCl 5 MG TAB PO SCH ×2 (08:54→21:21)
[2021-06-02] MEDS: ALPRAZolam 1 MG TAB PO SCH ×3 (08:54→21:21)
[2021-06-02] MEDS: Enoxaparin Sodium 40 MG/0.4 ML SYRINGE SC SCH ×2 (08:54→21:21)
[2021-06-02] MEDS: Thiamine 100 MG TAB PER TUBE SCH (08:54)
[2021-06-02] MEDS: Aspirin Chewable 81 MG TAB PO SCH (08:54)
[2021-06-02] MEDS: Folic Acid 1 MG TAB PER TUBE SCH (08:54)
[2021-06-02] MEDS: Escitalopram Oxalate 10 mg Tablet PER TUBE SCH (08:54)
[2021-06-02] MEDS: Pantoprazole 40 MG GRANULES PACKET PER TUBE SCH (08:55)
[2021-06-02] MEDS: cefTRIAXone\\ROCEPHIN 2 GM in Sodium Chloride 0.9% 100 ML IVPB SCH (23:39)
[2021-06-03] MEDS: guaiFENesin/Codeine 200 mg/20 mg 10 ml Cup PO SCH ×4 (05:28→21:32)
[2021-06-03] MEDS: Polyethylene Glycol 3350 17 GM Packet PO SCH (08:43)
[2021-06-03] MEDS: Aspirin Chewable 81 MG TAB PO SCH (08:43)
[2021-06-03] MEDS: Enoxaparin Sodium 40 MG/0.4 ML SYRINGE SC SCH ×2 (08:43→21:32)
[2021-06-03] MEDS: Folic Acid 1 MG TAB PER TUBE SCH (08:43)
[2021-06-03] MEDS: Midodrine HCl 5 MG TAB PO SCH ×2 (08:43→21:32)
[2021-06-03] MEDS: Escitalopram Oxalate 10 mg Tablet PER TUBE SCH (08:43)
[2021-06-03] MEDS: Thiamine 100 MG TAB PER TUBE SCH (08:43)
[2021-06-03] MEDS: ALPRAZolam 1 MG TAB PO SCH ×3 (08:43→21:32)
[2021-06-03] MEDS: Pantoprazole 40 MG GRANULES PACKET PER TUBE SCH (08:43)
[2021-06-03] MEDS: Senokot 8.6 MG TAB PER TUBE SCH ×2 (08:44→21:32)
[2021-06-04] MEDS: cefTRIAXone\\ROCEPHIN 2 GM in Sodium Chloride 0.9% 100 ML IVPB SCH ×2 (00:10→23:52)
[2021-06-04] MEDS: guaiFENesin/Codeine 200 mg/20 mg 10 ml Cup PO SCH ×4 (04:44→21:11)
[2021-06-04] MEDS: Thiamine 100 MG TAB PER TUBE SCH (08:43)
[2021-06-04] MEDS: Pantoprazole 40 MG GRANULES PACKET PER TUBE SCH (08:43)
[2021-06-04] MEDS: Midodrine HCl 5 MG TAB PO SCH ×2 (08:43→21:11)
[2021-06-04] MEDS: Folic Acid 1 MG TAB PER TUBE SCH (08:44)
[2021-06-04] MEDS: ALPRAZolam 1 MG TAB PO SCH ×3 (08:44→21:11)
[2021-06-04] MEDS: Aspirin Chewable 81 MG TAB PO SCH (08:44)
[2021-06-04] MEDS: Escitalopram Oxalate 10 mg Tablet PER TUBE SCH (08:44)
[2021-06-04] MEDS: Senokot 8.6 MG TAB PER TUBE SCH ×2 (08:45→21:11)
[2021-06-04] MEDS: Polyethylene Glycol 3350 17 GM Packet PO SCH (08:45)
[2021-06-04] MEDS: Scopolamine 1.5 mg/72 hour Patch TD SCH (08:48)
[2021-06-04] MEDS: Enoxaparin Sodium 40 MG/0.4 ML SYRINGE SC SCH ×2 (08:52→21:11)
[2021-06-04] MEDS: Acetaminophen 650 MG/20.3 ML UDCUP PER TUBE PRN (18:22)
[2021-06-05] MEDS: guaiFENesin/Codeine 200 mg/20 mg 10 ml Cup PO SCH ×4 (04:40→20:05)
[2021-06-05] MEDS: ALPRAZolam 1 MG TAB PO SCH ×3 (09:02→20:04)
[2021-06-05] MEDS: Folic Acid 1 MG TAB PER TUBE SCH (09:02)
[2021-06-05] MEDS: Thiamine 100 MG TAB PER TUBE SCH (09:02)
[2021-06-05] MEDS: Pantoprazole 40 MG GRANULES PACKET PER TUBE SCH (09:02)
[2021-06-05] MEDS: Aspirin Chewable 81 MG TAB PO SCH (09:02)
[2021-06-05] MEDS: Escitalopram Oxalate 10 mg Tablet PER TUBE SCH (09:03)
[2021-06-05] MEDS: Senokot 8.6 MG TAB PER TUBE SCH ×2 (09:03→20:05)
[2021-06-05] MEDS: Polyethylene Glycol 3350 17 GM Packet PO SCH (09:03)
[2021-06-05] MEDS: Midodrine HCl 5 MG TAB PO SCH ×2 (09:03→20:05)
[2021-06-05] MEDS: Enoxaparin Sodium 40 MG/0.4 ML SYRINGE SC SCH ×2 (09:03→20:04)
[2021-06-05] MEDS: cefTRIAXone\\ROCEPHIN 2 GM in Sodium Chloride 0.9% 100 ML IVPB SCH (23:27)
[2021-06-06] MEDS: guaiFENesin/Codeine 200 mg/20 mg 10 ml Cup PO SCH ×4 (04:15→21:05)
[2021-06-06] MEDS: Aspirin Chewable 81 MG TAB PO SCH (09:46)
[2021-06-06] MEDS: Thiamine 100 MG TAB PER TUBE SCH (09:46)
[2021-06-06] MEDS: Senokot 8.6 MG TAB PER TUBE SCH ×2 (09:46→21:15)
[2021-06-06] MEDS: ALPRAZolam 1 MG TAB PO SCH ×3 (09:46→21:04)
[2021-06-06] MEDS: Escitalopram Oxalate 10 mg Tablet PER TUBE SCH (09:46)
[2021-06-06] MEDS: Folic Acid 1 MG TAB PER TUBE SCH (09:46)
[2021-06-06] MEDS: Midodrine HCl 5 MG TAB PO SCH ×2 (09:46→21:04)
[2021-06-06] MEDS: Polyethylene Glycol 3350 17 GM Packet PO SCH (09:46)
[2021-06-06] MEDS: Enoxaparin Sodium 40 MG/0.4 ML SYRINGE SC SCH ×2 (09:46→21:05)
[2021-06-06] MEDS: Pantoprazole 40 MG GRANULES PACKET PER TUBE SCH (09:46)
[2021-06-06] MEDS: Acetaminophen 650 MG/20.3 ML UDCUP PER TUBE PRN (21:14)
[2021-06-06] MEDS: cefTRIAXone\\ROCEPHIN 2 GM in Sodium Chloride 0.9% 100 ML IVPB SCH (22:37)
[2021-06-07] MEDS: guaiFENesin/Codeine 200 mg/20 mg 10 ml Cup PO SCH ×5 (04:36→22:08)
[2021-06-07] MEDS: Pantoprazole 40 MG GRANULES PACKET PER TUBE SCH (09:04)
[2021-06-07] MEDS: Thiamine 100 MG TAB PER TUBE SCH (09:04)
[2021-06-07] MEDS: Folic Acid 1 MG TAB PER TUBE SCH (09:04)
[2021-06-07] MEDS: Escitalopram Oxalate 10 mg Tablet PER TUBE SCH (09:04)
[2021-06-07] MEDS: Midodrine HCl 5 MG TAB PO SCH ×2 (09:04→21:25)
[2021-06-07] MEDS: Senokot 8.6 MG TAB PER TUBE SCH ×2 (09:04→21:25)
[2021-06-07] MEDS: Scopolamine 1.5 mg/72 hour Patch TD SCH (09:04)
[2021-06-07] MEDS: Polyethylene Glycol 3350 17 GM Packet PO SCH (09:05)
[2021-06-07] MEDS: ALPRAZolam 1 MG TAB PO SCH ×3 (09:05→21:24)
[2021-06-07] MEDS: Aspirin Chewable 81 MG TAB PO SCH (09:05)
[2021-06-07] MEDS: Enoxaparin Sodium 40 MG/0.4 ML SYRINGE SC SCH ×2 (09:05→21:25)
[2021-06-07] MEDS: cefTRIAXone\\ROCEPHIN 2 GM in Sodium Chloride 0.9% 100 ML IVPB SCH (22:08)
[2021-06-08] MEDS: guaiFENesin/Codeine 200 mg/20 mg 10 ml Cup PO SCH ×4 (03:38→21:11)
[2021-06-08] MEDS: ALPRAZolam 1 MG TAB PO SCH ×3 (08:13→20:02)
[2021-06-08] MEDS: Folic Acid 1 MG TAB PER TUBE SCH (08:13)
[2021-06-08] MEDS: Aspirin Chewable 81 MG TAB PO SCH (08:13)
[2021-06-08] MEDS: Escitalopram Oxalate 10 mg Tablet PER TUBE SCH (08:14)
[2021-06-08] MEDS: Polyethylene Glycol 3350 17 GM Packet PO SCH (08:14)
[2021-06-08] MEDS: Pantoprazole 40 MG GRANULES PACKET PER TUBE SCH (08:14)
[2021-06-08] MEDS: Enoxaparin Sodium 40 MG/0.4 ML SYRINGE SC SCH ×2 (08:14→20:02)
[2021-06-08] MEDS: Thiamine 100 MG TAB PER TUBE SCH (08:14)
[2021-06-08] MEDS: Senokot 8.6 MG TAB PER TUBE SCH ×2 (08:14→20:02)
[2021-06-08] MEDS: Midodrine HCl 5 MG TAB PO SCH ×2 (08:14→20:02)
[2021-06-08 11:41] VITALS: BMI 21.4
[2021-06-08] MEDS: cefTRIAXone\\ROCEPHIN 2 GM in Sodium Chloride 0.9% 100 ML IVPB SCH (17:25)
[2021-06-09] MEDS: guaiFENesin/Codeine 200 mg/20 mg 10 ml Cup PO SCH ×3 (05:11→15:30)
[2021-06-09] MEDS: Polyethylene Glycol 3350 17 GM Packet PO SCH (09:57)
[2021-06-09] MEDS: Senokot 8.6 MG TAB PER TUBE SCH (09:57)
[2021-06-09] MEDS: ALPRAZolam 1 MG TAB PO SCH ×2 (09:58→15:30)
[2021-06-09] MEDS: Thiamine 100 MG TAB PER TUBE SCH (09:58)
[2021-06-09] MEDS: Folic Acid 1 MG TAB PER TUBE SCH (09:58)
[2021-06-09] MEDS: Escitalopram Oxalate 10 mg Tablet PER TUBE SCH (09:58)
[2021-06-09] MEDS: Aspirin Chewable 81 MG TAB PO SCH (09:58)
[2021-06-09] MEDS: Midodrine HCl 5 MG TAB PO SCH (09:58)
[2021-06-09] MEDS: Enoxaparin Sodium 40 MG/0.4 ML SYRINGE SC SCH (10:00)
[2021-06-09] MEDS: Pantoprazole 40 MG GRANULES PACKET PER TUBE SCH (10:01)
[2021-06-09] MEDS: cefTRIAXone\\ROCEPHIN 2 GM in Sodium Chloride 0.9% 100 ML IVPB SCH (17:16)
[2021-06-09 20:29] VITALS: BP 121/82; TEMP 98.2
== END 2021-06-09 20:30 | disposition home or self-care (01) | DRG 4 ==
LOC: CCU 14:46 → IMCU/EMU 05-08 20:22 → T4-B 05-13 15:32
PROVIDERS: ADMIT Family Medicine; ATTEND Internal Medicine
PROC: 3E0333Z Introduction of Anti-inflammatory into Peripheral Vein, Percutaneous Approach (ICD-10-PCS; 2021-02-11)
PROC: 5A0935A Assistance with Respiratory Ventilation, Less than 24 Consecutive Hours, High Flow/Velocity Cannula (ICD-10-PCS; 2021-02-11)
PROC: 8E0ZXY6 Isolation (ICD-10-PCS; 2021-02-11)
PROC: 5A1955Z Respiratory Ventilation, Greater than 96 Consecutive Hours (ICD-10-PCS; 2021-02-12)
PROC: 0BH18EZ Insertion of Endotracheal Airway into Trachea, Via Natural or Artificial Opening Endoscopic (ICD-10-PCS; 2021-02-12)
PROC: 0BH17EZ Insertion of Endotracheal Airway into Trachea, Via Natural or Artificial Opening (ICD-10-PCS; 2021-02-12)
PROC: 0DH67UZ Insertion of Feeding Device into Stomach, Via Natural or Artificial Opening (ICD-10-PCS; 2021-02-13)
PROC: 0BP1XDZ Removal of Intraluminal Device from Trachea, External Approach (ICD-10-PCS; 2021-02-14)
PROC: 3E033XZ Introduction of Vasopressor into Peripheral Vein, Percutaneous Approach (ICD-10-PCS; 2021-02-18)
PROC: 5A09457 Assistance with Respiratory Ventilation, 24-96 Consecutive Hours, Continuous Positive Airway Pressure (ICD-10-PCS; 2021-02-23)
PROC: 0BH18EZ Insertion of Endotracheal Airway into Trachea, Via Natural or Artificial Opening Endoscopic (ICD-10-PCS; 2021-02-25)
PROC: 5A1955Z Respiratory Ventilation, Greater than 96 Consecutive Hours (ICD-10-PCS; 2021-02-25)
PROC: 0B110F4 Bypass Trachea to Cutaneous with Tracheostomy Device, Open Approach (ICD-10-PCS; principal; 2021-02-26)
PROC: 0DH63UZ Insertion of Feeding Device into Stomach, Percutaneous Approach (ICD-10-PCS; 2021-02-26)
PROC: 02HV33Z Insertion of Infusion Device into Superior Vena Cava, Percutaneous Approach (ICD-10-PCS; 2021-02-26)
PROC: 3E043XZ Introduction of Vasopressor into Central Vein, Percutaneous Approach (ICD-10-PCS; 2021-03-04)
PROC: 0DH63UZ Insertion of Feeding Device into Stomach, Percutaneous Approach (ICD-10-PCS; 2021-03-05)
PROC: 0W9900Z Drainage of Right Pleural Cavity with Drainage Device, Open Approach (ICD-10-PCS; 2021-03-06)
PROC: 0WP9X0Z Removal of Drainage Device from Right Pleural Cavity, External Approach (ICD-10-PCS; 2021-03-11)
PROC: 0W9930Z Drainage of Right Pleural Cavity with Drainage Device, Percutaneous Approach (ICD-10-PCS; 2021-03-11)
PROC: HZ2ZZZZ Detoxification Services for Substance Abuse Treatment (ICD-10-PCS; 2021-03-22)
PROC: 0W9930Z Drainage of Right Pleural Cavity with Drainage Device, Percutaneous Approach (ICD-10-PCS; 2021-03-26)
PROC: 0BJ08ZZ Inspection of Tracheobronchial Tree, Via Natural or Artificial Opening Endoscopic (ICD-10-PCS; 2021-04-28)
PROC: 02HV33Z Insertion of Infusion Device into Superior Vena Cava, Percutaneous Approach (ICD-10-PCS; 2021-05-17)
PROC: B5181ZA Fluoroscopy of Superior Vena Cava using Low Osmolar Contrast, Guidance (ICD-10-PCS; 2021-05-17)
PROC: B548ZZA Ultrasonography of Superior Vena Cava, Guidance (ICD-10-PCS; 2021-05-17)
PROC: 3E0G76Z Introduction of Nutritional Substance into Upper GI, Via Natural or Artificial Opening (ICD-10-PCS; 2021-06-04)
DX: U07.1 COVID-19 (principal); J12.82 Pneumonia due to coronavirus disease 2019; J80 Acute respiratory distress syndrome; A41.01 Sepsis due to Methicillin susceptible Staphylococcus aureus; R65.20 Severe sepsis without septic shock; J15.211 Pneumonia due to Methicillin susceptible Staphylococcus aureus; J15.1 Pneumonia due to Pseudomonas; E87.3 Alkalosis; G72.81 Critical illness myopathy; F05 Delirium due to known physiological condition; K94.23 Gastrostomy malfunction; G93.49 Other encephalopathy; J93.83 Other pneumothorax; Z16.11 Resistance to penicillins; F13.939 Sedative, hypnotic or anxiolytic use, unspecified with withdrawal, unspecified; F11.93 Opioid use, unspecified with withdrawal; G62.81 Critical illness polyneuropathy; Z16.19 Resistance to other specified beta lactam antibiotics; M46.22 Osteomyelitis of vertebra, cervical region; Z99.11 Dependence on respirator [ventilator] status; K20.90 Esophagitis, unspecified without bleeding; F10.10 Alcohol abuse, uncomplicated; F41.9 Anxiety disorder, unspecified; R79.89 Other specified abnormal findings of blood chemistry; R45.1 Restlessness and agitation; E86.9 Volume depletion, unspecified; M21.372 Foot drop, left foot; M21.371 Foot drop, right foot; Y95 Nosocomial condition; K59.03 Drug induced constipation; T40.2X5A Adverse effect of other opioids, initial encounter; E20.9 Hypoparathyroidism, unspecified; J98.2 Interstitial emphysema; M46.92 Unspecified inflammatory spondylopathy, cervical region; B95.2 Enterococcus as the cause of diseases classified elsewhere; R13.10 Dysphagia, unspecified; M46.42 Discitis, unspecified, cervical region; M25.511 Pain in right shoulder; I95.2 Hypotension due to drugs; T42.75XA Adverse effect of unspecified antiepileptic and sedative-hypnotic drugs, initial encounter; Y92.239 Unspecified place in hospital as the place of occurrence of the external cause; Y83.3 Surgical operation with formation of external stoma as the cause of abnormal reaction of the patient, or of later complication, without mention of misadventure at the time of the procedure; Z78.1 Physical restraint status; Z82.49 Family history of ischemic heart disease and other diseases of the circulatory system; Z88.1 Allergy status to other antibiotic agents; Z98.890 Other specified postprocedural states
CPT/HCPCS: 31624; 36415; 36416; 36569; 36600; 70490; 70491; 71045; 72156; 74177; 74230; 80048; 80053; 80202; 80400; 82040; 82306; 82728; 82805; 83735; 83970; 84100; 84145; 84443; 84478; 84484; 85007; 85025; 85027; 85379; 86140; 87040; 87070; 87077; 87086; 87149; 87186; 87205; 93005; 93010; 94002; 94003; 94640; A9579; C1751; C9113; J0171; J0330; J0692; J0696; J0744; J0834; J1100; J1200; J1630; J1644; J1650; J1815; J2060; J2185; J2248; J2250; J2270; J2405; J2550; J2704; J3010; J3370; J3411; J3475; J3480; J3486; J3490; J7030; J7050; J7120; J7620; J7626; Q9967; S0020